=== PATIENT | female | born 1935 | race Caucasian/White ===

== ENCOUNTER 2020-03-11 13:08 | Inpatient (IN) | payer MEDICARE, SELFPAY ==
[2020-03-11] VITALS (21 sets, daily range): BP systolic 88–128; BP diastolic 53–95; PULSE 87–112; RESP 12–24; TEMP 35.9–36.5; O2SAT 91–99; BMI 29.1
--- NOTE | ~2020-03-11 | US_ITS ---
EXAMINATION: US venous doppler [facility] DATE: 03/11/2020 13:58 INDICATION: Bilateral lower limb pain, swelling and erythema TECHNIQUE: Grayscale ultrasound images without and with compression and Doppler ultrasound images of the bilateral lower extremity veins were obtained. COMPARISON: None. FINDINGS: The visualized portions of right common femoral vein, profunda (deep) femoral vein, femoral vein, pop liteal vein, posterior tibial veins, peroneal veins, gastrocnemius vein and greater saphenous vein ou tflow are patent. Subcutaneous edema at the right calf. The visualized portions of left common femoral vein, profunda femoral vein, femoral vein, popliteal v ein, posterior tibial veins, peroneal veins, gastrocnemius vein and greater saphenous vein outflow ar e patent. Subcutaneous edema at the left calf. IMPRESSION: 1. No deep venous thrombosis in either lower limb. Reviewed, dictated and finalized at location A.
--- NOTE | ~2020-03-11 | XR_ITS ---
EXAMINATION: XR chest 2V DATE: 03/11/2020 14:38 INDICATION: Shortness of breath. TECHNIQUE: Frontal and lateral views of the chest were obtained. COMPARISON: CT abdomen and pelvis 08/15/2016 FINDINGS: There are small pleural effusions. There are airspace opacities at the lung bases and in pe rihilar left upper lobe. No pneumothorax. Cardiomegaly is noted. There is a chronic burst fracture of T12. There are changes of posterior fusion procedure in lumbar spine. IMPRESSION: 1. Small pleural effusions. 2. Airspace opacities at the lung bases and in the perihilar left upper lobe, consistent with atelect asis versus pneumonia. 3. Cardiomegaly. Reviewed, dictated and finalized at location B. IMPRESSION: 1. Small pleural effusions. 2. Airspace opacities at the lung bases and in the perihilar left upper lobe, c onsistent with atelectasis versus pneumonia. 3. Cardiomegaly.
--- NOTE | 2020-03-11 13:47 | ED.EXTPRO ---
HPI - Extremity Problem General Chief complaint: Extremity Problem,Nontraumatic Stated complaint: LOWER EXT SWELLING, LOW BP Time Seen by Provider: 03/11/20 13:47 History of Present Illness HPI Narrative: Sent in by PCP for concern about possible CHF. She has had lower expremity swelling for the past 2 weeks. She was started on lasix, which helped initially, but now does not seem to be. Additionally she has noted increasing RAMIREZ, and fatigue. She was supposed to have an outpatient echo, but they have had difficulty scheduling it. No cough, fever, chest pain. 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 Her grandson lives with her. Her daughter lives across the street. 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 She smokes about a pack of cigarettes per day. She denies alcohol and illicit substance abuse. She designates her daughter, Shilpa Miller, as her surrogate decision maker and she wishes to be a do not resuscitate. Smoking packs per day: 1 Smoking cigarettes per day: 20.0 Years smoked: 65 Smoking pack-years: 65.00 Smoking status: Current every day smoker Tobacco type: cigarettes Alcohol intake: never Substance use: never Substance use type: does not use Gender identity (if verbalized by the patient): Female Spiritual care concerns: No Exam Const: General: no acute distress and alert Orientation/consciousness: patient oriented x3 HENMT: Head: normal to inspection Neck: Neck: normal visual inspection Resp: Effort & Inspection: normal respiratory effort Auscultation: crackles bilateral in the lower lung lemon Cardio: Rate: regular rate Rhythm: regular rhythm Skin: General skin exam: normal color Wounds: no wounds Neuro: General: patient oriented x3, no focal motor deficits and CN's II-XI intact bilaterally Speech: normal speech Extrem: General: edema bilateral Course Vital Signs Vital signs: Vital Signs Temperature 36.4 C 03/11/20 13:08 Pulse Rate 92 03/11/20 13:08 Respiratory Rate 16 03/11/20 13:08 Blood Pressure 90/53 L 03/11/20 13:08 Pulse Oximetry 97 03/11/20 13:08 Temperature 36.2 C L 03/16/20 14:00 Pulse Rate 95 03/16/20 14:00 Respiratory Rate 18 03/16/20 14:00 Blood Pressure 82/63 L 03/16/20 15:11 Pulse Oximetry 97 03/16/20 14:00 MDM - Extremity (Nontraumatic) MDM Narrative Medical decision making narrative: She has a very elevated BNP, pleural effusions, cardiomegaly, and increasing edeam. I will admit her for CHF. Medical
--- NOTE | 2020-03-11 13:50 | PC.NURSE ---
Pt. to Ultrasound prior to room arrival.
--- NOTE | 2020-03-11 14:23 | ECG_ITS ---
Measurements Intervals [place] Rate: 103 P: -11 ME: 156 QRS: -40 QRSD: 102 T: 52 QT: 377 QTc: 495 Interpretive Statements SINUS TACHYCARDIA ATRIAL COUPLETS AND ATRIAL PREMATURE COMPLEXES LEFT AXIS DEVIATION VOLTAGE CRITERIA FOR LVH DELAYED PRECORDIAL R/S TRANSITION BORDERLINE ST-T WAVE ABNORMALITY- HIGH LATERAL LEADS ABNORMAL ECG Electronically Signed On 03-11-2020 15:19:30 CDT by Bi Rosen D.O.
[2020-03-11 15:01] LABS: Basophils Percent Auto 0.2 % (0.2-1.2); Eosinophils Percent Auto 0.5 % (0-4.4); Hematocrit 40.3 % (37.0-47.0); Hemoglobin 13.5 g/dL (12.0-15.0); Immature Granulocyte Absolute 0.04 K/mm3 (0.00-0.031); Immature Granulocyte Percent A 0.5 % (0-0.5); Lymphocytes Absolute Auto 1.26 K/mm3 (0.9-3.2); Lymphocytes Percent Auto 14.9 % (18.3-44.2); Mean Corpuscular HGB Conc 33.5 g/dl (32-36); Mean Corpuscular Hemoglobin 31.5 pg (26-34); Mean Corpuscular Volume 94.2 fl (80-100); Mean Platelet Volume 9.8 fl (7.4-10.4); Monocytes Absolute Auto 0.7 K/mm3 (0.1-0.6); Monocytes Percent Auto 8.4 % (2.6-8.5); Neutrophils Absolute Auto 6.4 K/mm3 (1.3-6.7); Neutrophils Percent Auto 75.5 % (45.5-73.1); Platelet Count Result 238 k/mm3 (150-375); Red Blood Count 4.28 M/mm3 (4.2-5.4); Red Cell Distribution Width 13.2 % (11.5-14.5); White Blood Count 8.4 K/mm3 (4.5-10.0)
[2020-03-11 15:10] LABS: INR 1.1; Prothrombin Time 13.5 Seconds (11.1-14.7)
[2020-03-11 15:11] LABS: Partial Thromboplastin Time 28.8 SECONDS (22.3-36.8)
[2020-03-11 15:14] LABS: Anion Gap 7 mmol/L (8-16); Blood Urea Nitrogen 17 mg/dL (7-17); Carbon Dioxide 28 mmol/L (22-30); Chloride 100 mmol/L (98-107); Potassium 3.4 mmol/L (3.4-5.0); Sodium 135 mmol/L (137-145)
[2020-03-11 15:15] LABS: Alanine Aminotransferase 57 U/L (4-35); Albumin Level 3.8 g/dL (3.5-5.1); Alkaline Phosphatase 67 U/L (38-126); Aspartate Amino Transferase 36 U/L (14-36); Bilirubin,Total 0.6 mg/dL (0.2-1.3); Calcium 8.7 mg/dL (8.4-10.2); Estimated Glomerular Filt Rate > 60; Glucose 97 mg/dL (65-105)
[2020-03-11 15:46] LABS: NT Pro B Type Natriuretic Pept 21200 PG/ML (5-100); Troponin I 0.046 ng/mL (0.000-0.034)
[2020-03-11] MEDS: FUROSEMIDE INJ 40 MG/4 ML VIAL IV PUSH (16:18)
--- NOTE | 2020-03-11 18:44 | ADMGEN ---
This patient, Zelda Chin, was admitted to IMU Room 205-02. Patient/family oriented to hospital policies and general routines including ID bracelet, bed and alarms, visiting hours, pain management, procedures, bathroom and other care routines, personal items, smoking policy, room service/diet, and visiting hours. Valuables list has been completed. Information on how to activate the Rapid Response Team has been discussed. Patient/Family are encouraged to report perceived risks to care and to ask questions if they do not understand what they are told or what they should do.
[2020-03-11 19:21] LABS: Troponin I 0.047 ng/mL (0.000-0.034)
--- NOTE | 2020-03-11 19:47 | PC.NURSE ---
Critical Troponin called at 19:21 called Pao ANN, no answer and left message. Reported critical value to night nurse Marycruz EVANS. She said she will relay value to Pao.
[2020-03-11] MEDS: IPRATROPIUM BR 0.02% INH SOLN 0.5 MG/2.5 ML VIAL INHALATION (21:30)
[2020-03-11] MEDS: ALBUTEROL SULFATE NEB 2.5 MG/0.5 ML INH 5 MG INHALATION (21:31)
[2020-03-11 21:36] LABS: Troponin I 0.051 ng/mL (0.000-0.034)
--- NOTE | 2020-03-11 23:50 | PM.IMHP ---
H&P: HPI History of Present Illness Date/Time: 03/11/20 23:50 Chief complaint: Lower leg swelling. Narrative: Zelda Chin is a very pleasant 84-year-old female with GERD, and anxiety who presented to the emergency department earlier of bilateral lower extremity edema. A couple of weeks ago she developed swelling in her feet and ankles, which has continued to get worse despite being started on Lasix by her primary care provider. She was found to have a markedly elevated BNP with evidence of cardiomegaly and small pleural effusions on chest x-ray as well as an elevated troponin level and she is being admitted in this setting. With further questioning, she denies any known history of coronary artery disease, congestive heart failure, or cardiac dysrhythmia. She has not had chest pain, pleuritic pain, or palpitations. She also denies orthopnea, PND, and concerns for sleep apnea. She has not noticed any significant shortness of breath but will occasionally have a cough he, though nothing significant. No fever, chills, sweats, nausea, vomiting, or change in urine output. Review of Systems Review of Systems: Narrative: Twelve systems were reviewed with pertinent positives and negatives as per HPI. No recent travel or sick contacts. She denies exposure to those positive for COVID-19. No dysphagia. She denies nausea, vomiting, and diarrhea. She occasionally has constipation, but has had daily bowel movements for the last week or so. No dysuria hematuria, however she has had some urinary urgency since starting the Lasix. Except as documented, all other systems were reviewed and are negative. 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 Her grandson lives with her. Her daughter lives across the street. 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 She smokes about a pack of cigarettes per day. She denies alcohol and illicit substance abuse. She designates her daughter, Shilpa Miller, as her surrogate decision maker and she wishes to be a do not resuscitate. Smoking packs per day: 1 Smoking cigarettes per day: 20.0 Years smoked: 65 Smoking pack-years: 65.00 Smoking status: Current every day smoker Tobacco type: cigarettes Alcohol intake: never Substance use: never Substance use type: does not use Gender identity (if verbalized by the patient): Female Spiritual care concerns: No Meds Home Medications and Allergies Home Medications Medication Instructions Recorded Confirmed Type acetaminophen 650 mg 650 mg PO ONCE #90 tablet 06/06/19 03/11/20 Rx tablet,extended release esomeprazole magnesium 20 mg 20 mg PO DAILY #90 cap 06/06/19 03/11/20 Rx capsule,delayed release gabapentin 100 mg capsule 100 mg PO BID cap 06/06/19 03/11/20 History buspirone 7.5 mg tablet 7.5 mg PO TID #90 tablet 12/01/19 03/11/20 Rx furosemide 20 mg tablet 20 mg PO QAM tablet 01/25/20 03/11/20 History potassium chloride 10 mEq 10 meq PO DAILY #90 tablet 02/15/20 03/11/20 Rx tablet,extended release trazodone 100 mg tablet 100 mg PO DAILY #135 tablet 03/05/20 03/11/20 Rx Allergies Allergy/AdvReac Type Severity Reac
[2020-03-12] VITALS (22 sets, daily range): BP systolic 95–107; BP diastolic 50–76; PULSE 67–130; RESP 14–22; TEMP 36.2–36.6; O2SAT 93–95
--- NOTE | 2020-03-12 00:57 | ECHO_ITS ---
Patient Info Name: Zelda Chin Age: 84 years : 1935 Gender: Female Ht: 56 in Wt: 130 lbs BSA: 1.55 m2 HR: 96 bpm BP: 107 / 76 mmHg Technical Quality: Good Exam Date: 03/12/2020 8:08 AM Exam Location: [facility] Pulmonary Patient Status: Inpatient Admit Date: 03/11/2020 Staff Ordering Physician: Pao Camilo PA-C Waist Pleater: Kavon Rivero, KORINA, RT Attending Provider: Khadijah Murphy MD Referring Physician: Leslee LOYD; Exam Type: CA echo doppler color flow Study Info Indications I50.9 - Heart failure, unspecified Complete two-dimensional, color flow and Doppler transthoracic echocardiogram is performed. Summary 1. Normal LV size, moderate LVH, borderline LV systolic function, ejection fraction 50-55%; diastolic dysfunction. Mild left atrial enlargement. Dense mitral annular calcification, moderate MR, moderate mitral stenosis, mean gradient 9 mmHg. Mildly calcific aortic valve, mild aortic stenosis, GARY 1.9 cm2. Moderate tricuspid regurgitation, moderate pulmonary hypertension, RVSP estimated at 57 mmHg. Mild pericardial effusion, no echocardiographic evidence of tamponade. Left Ventricle Left ventricular chamber dimension is normal. Left ventricular systolic function is normal, estimated at 50-55%. There is moderately increased left ventricular wall thickness. The left ventricular diastolic function is abnormal. Left Atria Left atrial chamber dimension is mildly enlarged. Aortic Valve There is mild aortic valve stenosis with a peak velocity of 100 cm/s, mean gradient of 2 mmHg, and aortic valve area of 2.1 cm2. There is mild aortic valve calcification. Pulmonic Valve The pulmonic valve is not well visualized. There is trace pulmonic regurgitation. Mitral Valve There is moderate mitral valve stenosis. There is moderate mitral valve regurgitation. There is moderate mitral valve calcification. Tricuspid Valve The tricuspid valve leaflets are normal. There is moderate tricuspid valve regurgitation. Pericardium/Pleural There is small pericardial effusion. Inferior Vena Cava Dilated inferior vena cava with <50% collapse upon inspiration consistent with elevated right atrial pressure, 10 mmHg. Left Ventricular Outflow Tract Name Value Normal LVOT 2D LVOT Diameter 2.0 cm LVOT Doppler LVOT Peak Gradient 1 mmHg LVOT Mean Gradient 1 mmHg LVOT VTI 11 cm LVOT VTI/AV VTI Ratio 0.7 LVOT Stroke Volume 35 ml LVOT CO 5.5 l/min LVOT CI 3.5 l/min/m2 Mitral Valve Name Value Normal MV Doppler MV Decel [place] 956 cm/s2 MV PHT 62 ms MV Area (PHT)
[2020-03-12 01:14] LABS: Add Urine Microscopic? YES; Appearance Urine Clear (Clear); Bacteria Urine Trace /hpf; Bilirubin Urine Negative (Negative); Blood Urine 1+ (Negative); Color Urine Straw (Yellow); Glucose Urine UA Negative (Negative); Ketones Urine Negative (Negative); Leukocyte Esterase Ur Negative LEU/UL (Negative); Mucus Urine Rare /lpf; Nitrate Urine Negative (Negative); Protein Urine Negative (Negative); RBC Urine 0-2 /hpf (0-2); Squamous Epithelial Cell Urine Rare /hpf (Few); Urobilinogen Urine Negative mg/dL (<2.0); WBC Urine 0-3 /hpf
[2020-03-12] MEDS: traZODone HCL 50 MG TABLET 200 MG PO ×2 (01:44→20:21)
[2020-03-12] MEDS: busPIRone HCL 2.5 MG TABLET 7.5 MG PO ×4 (01:44→17:06)
[2020-03-12] MEDS: NICOTINE (*PBKC) 21 MG PATCH 1 PATCH TRANSDERM ×2 (01:45→09:03)
[2020-03-12] MEDS: ALBUTEROL SULFATE NEB 2.5 MG/0.5 ML INH 5 MG INHALATION ×4 (03:13→19:47)
[2020-03-12] MEDS: IPRATROPIUM BR 0.02% INH SOLN 0.5 MG/2.5 ML VIAL INHALATION ×4 (03:13→19:47)
[2020-03-12] MEDS: PANTOPRAZOLE 40 MG TABLET PO (09:02)
[2020-03-12] MEDS: POTASSIUM CHLORIDE 10 MEQ TABLET.ER PO (09:02)
[2020-03-12] MEDS: traZODone HCL 50 MG TABLET PO ×2 (09:03→12:32)
[2020-03-12] MEDS: GABAPENTIN 100 MG CAPSULE PO ×2 (09:03→17:06)
--- NOTE | 2020-03-12 09:22 | PM.CNCAR ---
Assessment and Plan Assessment and plan (1) Congestive heart failure: Code(s): I50.9 - Heart failure, unspecified Status: Acute Assessment and Plan: 84-year-old female with history of LVH with diastolic dysfunction, moderate mitral stenosis, anxiety, tobacco abuse. Patient admitted to the hospital with dyspnea and lower extremity swelling. Her initial EKG showed sinus tachycardia, subsequent EKG showed multifocal atrial tachycardia, on telemetry she has been in multiple atrial tachycardia with heart rate in 110s and 130s. Troponins are minimally elevated and likely non ACS in the setting of CHF. Echocardiogram on the personal evaluation shows borderline LV systolic function, moderate LVH, moderate mitral stenosis, mild aortic stenosis, moderate pulmonary hypertension. Patient's clinical presentation is consistent with acute on chronic diastolic CHF. - Continue diuresis with furosemide with close monitoring of electrolytes and renal function. - Start low-dose metoprolol tartrate 12.5 mg p.o. b.i.d. with holding parameters. May add NATALIO-inhibitor or Arb when patient's blood pressure allows. - Monitor on telemetry for improvement in her heart rate. - Patient has minimal troponin elevation which is likely non ACS. She does have coronary risk factors including age, ongoing tobacco abuse. May consider noninvasive ischemic evaluation at a later date as an outpatient as necessary. - patient and her daughter were advised to follow up as an outpatient. Patient has not been compliant previously for outpatient follow-up. Patient may need further investigation for her LV wall thickening and valvar heart disease including possibility of Infiltrative cardiomyopathy like cardiac amyloidosis as an outpatient. (2) Tobacco abuse: Code(s): Z72.0 - Tobacco use Status: Acute Assessment and Plan: Smoking cessation counseling was done History of Present Illness History of Present Illness Consult date/time: 03/12/20 09:22 Date of consult: 03/12/2020 reason for consult:new onset CHF, elevated troponin Requesting physician:RAPHAEL Camilo Chief complaint: HPI: 84-year-old female with LVH, diastolic dysfunction, anxiety, tobacco abuse. Patient admitted to the hospital on 03/11/2020 with complaints of bilateral lower extremity swelling that started about 2 weeks ago. she also has been experiencing shortness of breath, unable to quantify the distance. Patient states that she gets short of breath limited distance. She has limited mobility, uses walker for ambulation. She denies any chest pain, palpitations, dizziness or syncope. Per patient's daughter, she has found irregular heartbeat on the monitor at home. Review of patient's old medical records indicate that she had an echocardiogram done on 08/15/2016 showed LVEF 75-80%, moderate LVH, grade 1 diastolic dysfunction, severe mitral annular calcification, [id number] mitral stenosis, moderate pericardial effusion. Patient and her daughter reports that they have not had regular cardiology follow-up over the years. She previously used to see in the clinic, however, has not seen her about about 3 years as per patient's daughter EKG on my personal evaluation showed sinus tachycardia, heart rate 103 beats per minute, left axis deviation, PAC, LVH. subsequent EKG performed today showed multifocal atrial tachycardia. On telemetry, patient has been in sinus rhythm with episodes of multifocal atrial tachycardia with heart rate in 110s to 130s. Troponins are minimally elevated and essentially flat. [place] [id number]. chest x-ray showed Small pleural effusions, airspace opacities at the lung bases and in the perihilar left upper lobe, consistent with atelectasis versus pneumonia; cardiomegaly. No DVT on lower extremity Doppler. Reason For Visit: Lower leg swelling. Review of Systems Constitutional: Constitutional: [place]
--- NOTE | 2020-03-12 09:55 | ECG_ITS ---
Measurements Intervals [place] Rate: 111 P: NH: 0 QRS: -41 QRSD: 97 T: 73 QT: 360 QTc: 490 Interpretive Statements SINUS OR ECTOPIC ATRIAL TACHYCARDIA ATRIAL COUPLETS AND FREQUENT ATRIAL PREMATURE COMPLEXES VENTRICULAR PREMATURE COMPLEX LEFT AXIS DEVIATION VOLTAGE CRITERIA FOR LVH POOR R WAVE PROGRESSION, ANTERIOR LEADS NONSPECIFIC ST & T-WAVE ABNORMALITY- HIGH LATERAL LEADS BASELINE ARTIFACT- V5 ABNORMAL ECG Electronically Signed On 03-12-2020 13:34:34 CDT by Bi Rosen D.O.
[2020-03-12] MEDS: FUROSEMIDE INJ 40 MG/4 ML VIAL 20 MG IV PUSH ×2 (10:18→20:20)
--- NOTE | 2020-03-12 12:02 | PM.OP ---
Procedure Note - Brief Procedure Note - Brief Date of procedure: 03/12/20 Pre-op diagnosis: Lower leg swelling. Surgeon: Jeffry Hummel MD
[2020-03-12] MEDS: POTASSIUM CHLORIDE 10 MEQ TABLET 40 MEQ PO (15:22)
[2020-03-12] MEDS: TOLNAFTATE 1% POWDER 45 GM BTL 1 APPLIC TOPICAL ×2 (15:23→20:21)
--- NOTE | 2020-03-12 15:40 | PM.IMPN ---
Progress Note: A&P Assessment and Plan (1) Congestive heart failure: Code(s): I50.9 - Heart failure, unspecified Status: Acute Assessment and Plan: Cautious diuresis with close monitoring of blood pressures, which have been running a bit soft. Echocardiogram EF 40-45% (2) Elevated troponin: Code(s): R79.89 - Other specified abnormal findings of blood chemistry Status: Acute Assessment and Plan: Minimally elevated and flat, likely secondary to CHF. As above, echocardiogram has been ordered. (3) Generalized anxiety disorder: Code(s): F41.1 - Generalized anxiety disorder Status: Acute Assessment and Plan: Continue buspirone. (4) Gastroesophageal reflux: Code(s): K21.9 - Gastro-esophageal reflux disease without esophagitis Status: Acute Assessment and Plan: Continue esomeprazole. (5) Tobacco dependence: Code(s): F17.200 - Nicotine dependence, unspecified, uncomplicated Status: Acute Assessment and Plan: Smoking cessation is encouraged. Nicotine patch available if needed. Subjective Date/time seen: 03/12/20 15:40 Interval history: Date of visit 03/12. 84-year-old white female admitted with increasing shortness breath weakness. Has diuresed some and feels better this a.m.. No chest pain and no real palpitations Exam Narrative: Exam Narrative: blood pressure 100/60 pulse is 82 and regular afebrile saturating 95% on room air lungs faint bibasilar crackles CV regular rate rhythm abdomen soft nontender no mas ses extremities without edema neuro alert cooperative no focal deficits Objective Data Vital Signs Vital Signs: Vital Signs - 24 hr 03/11/20 16:10 03/11/20 16:15 03/11/20 16:16 Temperature Pulse Rate 98 102 H 100 Respiratory Rate 20 22 H 24 H Blood Pressure 128/95 H Pulse Oximetry 91 95 03/11/20 16:17 03/11/20 16:30 03/11/20 16:31 Temperature Pulse Rate 88 96 100 Respiratory Rate 14 20 20 Blood Pressure 100/84 Pulse Oximetry 92 91 03/11/20 16:45 03/11/20 17:30 03/11/20 18:20 Temperature 35.9 C L Pulse Rate 88 98 87 Respiratory Rate 20 12 18 Blood Pressure 122/70 122/73 Pulse Oximetry 97 99 94 03/11/20 19:55 03/11/20 20:00 03/11/20 21:32 Temperature 36.5 C Pulse Rate 112 H 112 H Respiratory Rate 20 20 Blood Pressure 89/74 L 88/63 L Pulse Oximetry 92 92 03/11/20 21:35 03/11/20 21:44 03/11/20 22:00 Temperature Pulse Rate 90 91 100 Respiratory Rate 20 20 Blood Pressure Pulse Oximetry 03/11/20 23:30 03/12/20 00:00 03/12/20 02:00 Temperature 36.5 C Pulse Rate 103 H 107 H 97 Respiratory Rate 20 20 Blood Pressure 90/69 L Pulse Oximetry 93 93 03/12/20 03:15 03/12/20 03:20 03/12/20 04:00 Temperature 36.2 C L Pulse Rate 104 H 99 96 Respiratory Rate 20 20 16 Blood Pressure 107/76 Pulse Oximetry 93 03/12/20 06:00 03/12/20 07:06 03/12/20 08:00 Temperature 36.5 C Pulse Rate 101 H 117 H 120 H Respiratory Rate 20 Blood Pressure 106/75 Pulse Oximetry 94 03/12/20 09:07 03/12/20 09:12 03/12/20 10:00 Temperature Pulse Rate 94 95 130 H Respiratory Rate 18 18 Blood Pressure Pulse Oximetry 03/12/20 12:00 03/12/20 13:46 03/12/20 13:51 Temperature 36.2 C L Pulse Rate 110 H 96 95 Respiratory Rate 22 H 18 18 Blood Pressure 97/61 L Pulse Oximetry 95 03/12/20 14:00 Temperature Pulse Rate 94 Respiratory Rate Blood Pressure Pulse Oximetry Intake/Output Intake/Output: Intake & Output 03/09/20 03/10/20 03/11/20 03/12/20 23:59 23:59 23:59 23:59 Intake Total 480 Output Total 1600 Balance -1120
[2020-03-12] MEDS: METOPROLOL TARTRATE 12.5 MG TABLET PO (20:20)
[2020-03-13] VITALS (26 sets, daily range): BP systolic 71–127; BP diastolic 51–87; PULSE 71–111; RESP 16–20; TEMP 35.7–36.6; O2SAT 90–100
[2020-03-13] MEDS: IPRATROPIUM BR 0.02% INH SOLN 0.5 MG/2.5 ML VIAL INHALATION ×4 (02:10→19:47)
[2020-03-13] MEDS: ALBUTEROL SULFATE NEB 2.5 MG/0.5 ML INH 5 MG INHALATION ×4 (02:10→19:47)
[2020-03-13 05:44] LABS: Anion Gap 5 mmol/L (8-16); Blood Urea Nitrogen 19 mg/dL (7-17); Calcium 8.6 mg/dL (8.4-10.2); Carbon Dioxide 30 mmol/L (22-30); Chloride 100 mmol/L (98-107); Estimated Glomerular Filt Rate > 60; Glucose 105 mg/dL (65-105); Potassium 3.9 mmol/L (3.4-5.0); Sodium 135 mmol/L (137-145)
--- NOTE | 2020-03-13 08:38 | P.CDI_ITS ---
CDI Query Clarification Request - CHF documented - Echo with EF 50-55% and diastolic dysfunction - Coders cannot code type of CHF from documentation of echo results Please further specify type and acuity of CHF: * Systolic *Acute * Diastolic *Chronic * Both systolic and diastolic *Acute on chronic * Unable to determine *Unable to determine <Zelda Patrick RN - Last Filed: 03/13/20 08:49> Clarified Diagnosis (1) Mitral stenosis with insufficiency: Code(s): I05.2 - Rheumatic mitral stenosis with insufficiency <Zelda Patrick RN - Last Filed: 03/13/20 08:49> Status: Acute <Zelda Patrick RN - Last Filed: 03/13/20 08:49> (2) Diastolic CHF, acute on chronic: Code(s): I50.33 - Acute on chronic diastolic (congestive) heart failure <Zelda Patrick RN - Last Filed: 03/13/20 08:49> Status: Acute <Zelda Patrick RN - Last Filed: 03/13/20 08:49>
[2020-03-13] MEDS: traZODone HCL 50 MG TABLET PO ×2 (08:43→12:47)
[2020-03-13] MEDS: POTASSIUM CHLORIDE 10 MEQ TABLET.ER PO (08:43)
[2020-03-13] MEDS: PANTOPRAZOLE 40 MG TABLET PO (08:43)
[2020-03-13] MEDS: GABAPENTIN 100 MG CAPSULE PO ×2 (08:43→17:23)
[2020-03-13] MEDS: METOPROLOL TARTRATE 12.5 MG TABLET PO ×2 (08:43→20:15)
[2020-03-13] MEDS: NICOTINE (*PBKC) 21 MG PATCH 1 PATCH TRANSDERM (08:43)
[2020-03-13] MEDS: busPIRone HCL 2.5 MG TABLET 7.5 MG PO ×3 (08:43→17:23)
[2020-03-13] MEDS: TOLNAFTATE 1% POWDER 45 GM BTL 1 APPLIC TOPICAL ×2 (08:44→20:16)
--- NOTE | 2020-03-13 12:05 | PM.PNCARD ---
Progress Note: A&P Assessment and Plan (1) Acute diastolic CHF (congestive heart failure): Code(s): I50.31 - Acute diastolic (congestive) heart failure Status: Acute Assessment and Plan: Excellent diuresis. Still somewhat volume overloaded. Running a lower blood pressure today than usual, will reduce Lasix to 20 mg daily. (2) Multifocal atrial tachycardia: Code(s): I47.1 - Supraventricular tachycardia Status: Acute Assessment and Plan: On low-dose metoprolol, unable to titrate dose because low blood pressure. Only one dose given so far. 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 However her mitral valve gradient was 9 mm Hg, a bit elevated, so we will need to re-evaluate the mitral stenosis in the future. Probably repeat an echo in 6 months. (4) Hypotension: Code(s): I95.9 - Hypotension, unspecified Status: Acute Assessment and Plan: low blood pressures asymptomatic but limits therapy. Subjective Date/time seen: 03/13/20 12:05 84-year-old female with history of LVH with diastolic dysfunction, moderate mitral stenosis, anxiety, tobacco abuse. Patient admitted to the hospital with dyspnea and lower extremity swelling. Her initial EKG showed sinus tachycardia, subsequent EKG showed multifocal atrial tachycardia, on telemetry she has been in multiple atrial tachycardia with heart rate in 110s and 130s. Troponins are minimally elevated and likely non ACS in the setting of CHF. Echocardiogram shows borderline LV systolic function, moderate LVH, moderate mitral stenosis, mild aortic stenosis, moderate pulmonary hypertension. Patient's clinical presentation is consistent with acute on chronic diastolic CHF. Patient is being diuresed and started on metoprolol, will need outpatient follow-up. Date of service: 03/13/2020 Feeling better, up in a chair comfortable, still breathless at times. edema improved. Off oxygen. Blood pressure running 71-105 mmHg. Diuresed over 2 L yesterday. Telemetry: NSR and sinus tach rate 80-110, multifocal atrial tachycardia, no atrial fibrillation. Review of Systems Constitutional: Constitutional: Reports weakness ENT: Denies epistaxis Cardiovascular: Cardiovascular: Denies chest pain, Reports pedal edema, Reports leg edema and Denies lightheadedness Respiratory: Respiratory: Reports chest congestion and Reports dyspnea on exertion Gastrointestinal: Gastrointestinal: Denies abdominal pain Genitourinary: Genitourinary: Reports nocturia Musculoskeletal: Musculoskeletal: Reports no additional musculoskeletal complaints Integumentary/Breasts: Skin/Breast: Reports rash and Reports wounds ( Wound on right lower extremity has been losing) Neurologic: Reports system reviewed and no additional complaints, except as documented Psychiatric: Psychiatric: Reports no additional psychiatric complaints Exam Narrative: Exam Narrative: pleasant older lady sitting up in chair, off oxygen, daughter at the bedside. Const: General: comfortable and no acute distress HENMT: Mouth: Yes moist mucous membranes Eyes: EOM: EOMs intact bilaterally Neck: Neck: No no JVD ( JVD noted) Resp: Auscultation: diminished lung sounds ( decreased breath sounds in the bases) Cardio: Rate: tachycardic Rhythm: abnormal rhythm ( occasionally irregular) Skin: Wounds: wounds noted (discoloration of LRE w/ wound, dressed) Neuro: Cognition (Neuro): abnormal cognition (mild memory loss?) Speech: normal speech Motor exam (neuro): Normal motor muscle tone present throughout Extrem: General: edema and pedal edema Other: Mild pretibial and ankle edema Psych: Me
--- NOTE | 2020-03-13 17:27 | PM.IMPN ---
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 Plan will be to control heart rate and blood pressure and diuresis as possible (3) Multifocal atrial tachycardia: Code(s): I47.1 - Supraventricular tachycardia Status: Acute Assessment and Plan: low-dose beta kaitlynn added per Cardiology and rate is better controlled. will probably not tolerate titration up with low blood pressure Subjective Date/time seen: 03/13/20 17:27 Interval history: Date of visit 03/13. 84-year-old white female admitted with increasing shortness breath weakness. Has diuresed some and feels better this a.m.. No chest pain and no real palpitations Exam Narrative: Exam Narrative: blood pressure 88/66 pulse is 96 and regular afebrile saturating 95% on room air lungs faint bibasilar crackles L>R CV regular rate rhythm abdomen soft nontender extremities without edema neuro alert cooperative no focal deficits Objective Data Vital Signs Vital Signs: Vital Signs - 24 hr 03/12/20 18:00 03/12/20 19:47 03/12/20 19:55 Temperature Pulse Rate 115 H 90 88 Respiratory Rate 18 18 Blood Pressure Pulse Oximetry 03/12/20 20:00 03/12/20 20:20 03/12/20 22:00 Temperature 36.6 C Pulse Rate 115 H 103 H 83 Respiratory Rate 20 Blood Pressure 95/50 L Pulse Oximetry 93 03/13/20 00:00 03/13/20 02:00 03/13/20 02:11 Temperature 36.4 C Pulse Rate 85 83 86 Respiratory Rate 20 20 Blood Pressure 105/71 Pulse Oximetry 93 03/13/20 02:19 03/13/20 04:00 03/13/20 06:00 Temperature 36.6 C Pulse Rate 88 95 97 Respiratory Rate 18 20 Blood Pressure 94/76 L Pulse Oximetry 94 03/13/20 07:57 03/13/20 08:00 03/13/20 08:43 Temperature 36.3 C L Pulse Rate 88 99 105 H Respiratory Rate 20 Blood Pressure 85/66 L Pulse Oximetry 100 03/13/20 09:10 03/13/20 09:20 03/13/20 10:00 Temperature Pulse Rate 88 87 102 H Respiratory Rate 20 20 Blood Pressure Pulse Oximetry 03/13/20 11:37 03/13/20 12:00 03/13/20 12:37 Temperature 36.6 C Pulse Rate 89 102 H Respiratory Rate 18 Blood Pressure 71/56 L 93/63 L Pulse Oximetry 99 03/13/20 14:00 03/13/20 14:40 03/13/20 14:50 Temperature Pulse Rate 105 H 85 86 Respiratory Rate 20 20 Blood Pressure Pulse Oximetry 03/13/20 16:00 Temperature 36.3 C L Pulse Rate 100 Respiratory Rate 18 Blood Pressure 83/51 L Pulse Oximetry 90 Intake/Output Intake/Output: Intake & Output 03/10/20 03/11/20 03/12/20 03/13/20 23:59 23:59 23:59 23:59 Intake Total 480 630 Output Total 2900 350 Balance -2420 280 Meds/Results Medications: Active Medications Generic Name Dose Route Start Last Admin Trade Name Freq PRN Reason Stop Dose Admin Acetaminophen 650 mg 03/12/20 01:00 Tylenol Tablet PO ONCE JACQUIE Albuterol 5 mg 03/11/20 20:00 03/13/20 14:40 Albuterol Sulf Neb 2.5mg/0.5ml INHALATION 5 mg Q6HRT JACQUIE Administration Buspirone HCl 7.5 mg 03/12/20 01:10 03/13/20 12:47 Buspar PO 7.5 mg TID JACQUIE Administration Furosemide 20 mg 03/14/20 09:00 Lasix Inj IV PUSH DAILY JACQUIE Gabapentin 100 mg 03/12/20 09:00 03/13/20 08:43 Neurontin PO 100 mg BID JACQUIE Administration Ipratropium [place] 0.5 mg 03/11/20 20:00 03/13/20 14:50 Atrovent Neb INHALATION 0.5 mg Q6HRT JACQUIE Administration Metoprolol Tartrate 12.
[2020-03-13] MEDS: traZODone HCL 50 MG TABLET 200 MG PO (20:16)
[2020-03-14] VITALS (25 sets, daily range): BP systolic 99–141; BP diastolic 61–96; PULSE 82–117; RESP 16–24; TEMP 36–36.4; O2SAT 94–99
[2020-03-14] MEDS: IPRATROPIUM BR 0.02% INH SOLN 0.5 MG/2.5 ML VIAL INHALATION ×4 (02:06→20:07)
[2020-03-14] MEDS: ALBUTEROL SULFATE NEB 2.5 MG/0.5 ML INH 5 MG INHALATION ×4 (02:06→20:07)
[2020-03-14 08:14] LABS: Anion Gap 7 mmol/L (8-16); Blood Urea Nitrogen 19 mg/dL (7-17); Carbon Dioxide 27 mmol/L (22-30); Chloride 101 mmol/L (98-107); Estimated Glomerular Filt Rate > 60; Glucose 139 mg/dL (65-105); Potassium 4.3 mmol/L (3.4-5.0); Sodium 135 mmol/L (137-145)
--- NOTE | 2020-03-14 08:41 | PM.PNCARD ---
Progress Note: A&P Assessment and Plan (1) Acute diastolic CHF (congestive heart failure): Code(s): I50.31 - Acute diastolic (congestive) heart failure Status: Acute Assessment and Plan: Excellent diuresis. Still somewhat volume overloaded. Running a lower blood pressure today than usual, will reduce Lasix to 20 mg daily. (2) Multifocal atrial tachycardia: Code(s): I47.1 - Supraventricular tachycardia Status: Acute Assessment and Plan: On low-dose metoprolol, unable to titrate dose because low blood pressure. Only one dose given so far. 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 However her mitral valve gradient was 9 mm Hg, a bit elevated, so we will need to re-evaluate the mitral stenosis in the future. Probably repeat an echo in 6 months. (4) Hypotension: Code(s): I95.9 - Hypotension, unspecified Status: Acute Assessment and Plan: low blood pressures asymptomatic but limits therapy. Subjective Date/time seen: date of service 03/14/20 08:41 Interval history: Date of visit 03/13. 84-year-old white female admitted with increasing shortness breath weakness. Has diuresed some and feels better this a.m.. No chest pain and no real palpitations 03/14/2020- Review of Systems Constitutional: Constitutional: Denies chills, Denies fatigue, Denies fever(s), Denies headache(s) and Reports weakness Eyes: Eyes: Reports as per HPI, Denies change in vision, Denies loss of vision and Denies eye pain ENT: Reports as per HPI, Reports Normal hearing present, Denies headache(s), Reports lip swelling, Denies epistaxis and Denies sore throat Cardiovascular: Cardiovascular: Reports as per HPI, Denies chest pain, Denies syncope, Reports pedal edema, Reports irregular heart rhythm, Reports leg edema, Denies lightheadedness, Reports dyspnea and Reports dyspnea on exertion Respiratory: Respiratory: Reports as per HPI, Reports chest congestion, Denies cough, Reports dyspnea, Reports dyspnea on exertion and Denies wheezing Gastrointestinal: Gastrointestinal: Reports as per HPI, Denies abdominal pain, Denies melena, Denies nausea and Denies vomiting Genitourinary: Genitourinary: Reports as per HPI and Reports nocturia Musculoskeletal: Musculoskeletal: Reports no additional musculoskeletal complaints, Reports as per HPI, Denies myalgias, Denies muscle cramps and Reports muscle weakness Integumentary/Breasts: Skin/Breast: Reports as per HPI, Denies pruritus, Reports rash and Reports wounds ( Wound on right lower extremity has been losing) Neurologic: Reports system reviewed and no additional complaints, except as documented, Reports as per HPI, Reports Normal hearing present, Denies behavioral changes, Denies syncope, Denies headache(s), Denies loss of vision and Reports weakness Psychiatric: Psychiatric: Reports no additional psychiatric complaints, Reports as per HPI, Denies anxiety, Denies behavioral changes and Denies depression Endocrine: Endocrine: Reports as per HPI, Denies fatigue, Denies polydipsia and Denies polyuria Hematologic/Lymphatic: Hematologic/Lymphatic: Reports as per HPI, Denies easy bleeding and Denies easy bruising Allergic/Immunologic: Allergic/Immunologic: Reports as per HPI, Reports lip swelling and Denies wheezing Exam Narrative: Exam Narrative: pleasant older lady sitting up in chair, off oxygen, daughter at the bedside. Const: General: comfortable, no acute distress, alert and awake HENMT: Head: normocephalic and atraumatic Ears: external ears normal and other ( decreased hearing) General nose exam: Normal external nose present and no epistaxis Face and sinus:
[2020-03-14] MEDS: FUROSEMIDE INJ 40 MG/4 ML VIAL 20 MG IV PUSH ×2 (09:36→20:45)
[2020-03-14] MEDS: METOPROLOL TARTRATE 25 MG TABLET PO ×2 (09:36→20:46)
[2020-03-14] MEDS: NICOTINE (*PBKC) 21 MG PATCH 1 PATCH TRANSDERM (09:36)
[2020-03-14] MEDS: POTASSIUM CHLORIDE 10 MEQ TABLET.ER PO (09:37)
[2020-03-14] MEDS: traZODone HCL 50 MG TABLET PO ×2 (09:37→12:08)
[2020-03-14] MEDS: GABAPENTIN 100 MG CAPSULE PO ×2 (09:37→17:54)
[2020-03-14] MEDS: PANTOPRAZOLE 40 MG TABLET PO (09:37)
[2020-03-14] MEDS: busPIRone HCL 2.5 MG TABLET 7.5 MG PO ×2 (09:37→12:08)
[2020-03-14] MEDS: TOLNAFTATE 1% POWDER 45 GM BTL 1 APPLIC TOPICAL ×2 (09:38→20:47)
--- NOTE | 2020-03-14 16:20 | PM.PNCARD ---
Progress Note: A&P Assessment and Plan (1) Acute diastolic CHF (congestive heart failure): Code(s): I50.31 - Acute diastolic (congestive) heart failure Status: Acute Assessment and Plan: Excellent diuresis initially; Lasix reduced to 20 mg qd 03/13/2020. Still somewhat volume overloaded. Will increase back to BID since BP better. (2) Multifocal atrial tachycardia: Code(s): I47.1 - Supraventricular tachycardia Status: Acute Assessment and Plan: No definite a fib; looks like MAT. 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 However her mitral valve gradient was 9 mm Hg, a bit elevated, so we will need to re-evaluate the mitral stenosis in the future. Probably repeat an echo in 6 months. (4) Hypotension: Code(s): I95.9 - Hypotension, unspecified Status: Acute Assessment and Plan: Low blood pressures asymptomatic but limits therapy. Better today since Lasix reduced to once daily. (5) Generalized anxiety disorder: Code(s): F41.1 - Generalized anxiety disorder Status: Acute Assessment and Plan: Very anxious, contributing to sx. Daughter says, She likes her drugs. She needs to watch that pt doesn't take too much. Subjective Date/time seen: 03/14/20 16:20 84-year-old female with history of LVH with diastolic dysfunction, moderate mitral stenosis, anxiety, tobacco abuse. Patient admitted to the hospital with dyspnea and lower extremity swelling. Her initial EKG showed sinus tachycardia, subsequent EKG showed multifocal atrial tachycardia, on telemetry she has been in multiple atrial tachycardia with heart rate in 110s and 130s. Troponins are minimally elevated and likely non ACS in the setting of CHF. Echocardiogram: borderline LV systolic function, moderate LVH, moderate mitral stenosis, mild aortic stenosis, moderate pulmonary hypertension. Patient's clinical presentation is consistent with acute on chronic diastolic CHF. Patient is being diuresed and started on metoprolol, will need outpatient follow-up. 03/13/2020 Feeling better, up in a chair comfortable, still breathless at times. edema improved. Off oxygen. Blood pressure running 71-105 mmHg. Diuresed over 2 L yesterday. Lasix decreased to once daily 2nd low BP. Telemetry: NSR and sinus tach rate 80-110, multifocal atrial tachycardia, no atrial fibrillation. Date of service 03/14/2020: Please help me! Pt had trouble breathing/panic attack at 2 a.m. and around noon, daughter upset that these may not be her usual anxiety attacks but may be from CHF. No CP, stomach problems, Tele: NSR/sinus tach, freq APCs and some MAT. Sometimes hard to tell if MAT or AFib as there can be a lot of artifact on the baseline, but no definite a fib. Review of Systems Constitutional: Constitutional: Reports weakness ENT: Denies epistaxis Cardiovascular: Cardiovascular: Denies chest pain, Reports pedal edema, Reports leg edema, Denies lightheadedness and Reports dyspnea on exertion Respiratory: Respiratory: Reports chest congestion, Reports dyspnea and Reports dyspnea on exertion Gastrointestinal: Gastrointestinal: Denies abdominal pain Genitourinary: Genitourinary: Reports nocturia Musculoskeletal: Musculoskeletal: Reports no additional musculoskeletal complaints Integumentary/Breasts: Skin/Breast: Reports rash and Reports wounds ( Wound on right lower extremity has been losing) Neurologic: Reports system reviewed and no additional complaints, except as documented and Reports weakness Psychiatric: Psychiat
--- NOTE | 2020-03-14 17:46 | PM.IMPN ---
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 Plan will be to control heart rate and blood pressure and diuresis as possible (3) Multifocal atrial tachycardia: Code(s): I47.1 - Supraventricular tachycardia Status: Acute Assessment and Plan: low-dose beta kaitlynn added per Cardiology and rate is better controlled. doubt will be able to increase above 25 Q 12 with her low blood pressure (4) Generalized anxiety disorder: Code(s): F41.1 - Generalized anxiety disorder Status: Acute Assessment and Plan: definitely contributing to her symptomatology. Continue the trazodone and buspirone (5) DVT prophylaxis: Code(s): Z29.9 - Encounter for prophylactic measures, unspecified Status: Acute Assessment and Plan: Lovenox Subjective Date/time seen: 03/14/20 17:46 Interval history: date of visit 03/14. 84-year-old white female admitted with increasing shortness breath and generalized weakness. Found to have diastolic heart failure and MAT. diuresing and low-dose beta-kaitlynn and she is feeling better although she complains of being very anxious and short of breath last night Exam Narrative: Exam Narrative: blood pressure 110/86 pulse is 86 and regular afebrile saturating 94% on room air lungs clear today CV regular rate rhythm with frequent ectopics abdomen soft nontender extremities without edema neuro alert cooperative no focal deficits Objective Data Vital Signs Vital Signs: Vital Signs - 24 hr 03/13/20 18:00 03/13/20 19:49 03/13/20 19:55 Temperature 36.3 C L Pulse Rate 109 H 101 H 108 H Respiratory Rate 20 18 Blood Pressure 114/77 Pulse Oximetry 96 03/13/20 20:00 03/13/20 20:15 03/13/20 22:00 Temperature Pulse Rate 87 111 H 91 Respiratory Rate Blood Pressure Pulse Oximetry 03/13/20 23:51 03/14/20 00:00 03/14/20 02:00 Temperature 35.7 C L Pulse Rate 71 97 91 Respiratory Rate 16 Blood Pressure 127/87 Pulse Oximetry 100 03/14/20 02:06 03/14/20 02:11 03/14/20 04:00 Temperature Pulse Rate 85 89 94 Respiratory Rate 24 H 22 H Blood Pressure Pulse Oximetry 03/14/20 04:42 03/14/20 06:00 03/14/20 08:00 Temperature 36.2 C L 36.1 C L Pulse Rate 104 H 113 H 108 H Respiratory Rate 16 18 Blood Pressure 141/96 H 126/86 Pulse Oximetry 96 94 03/14/20 08:20 03/14/20 08:30 03/14/20 09:36 Temperature Pulse Rate 117 H 113 H 106 H Respiratory Rate 20 20 Blood Pressure Pulse Oximetry 03/14/20 10:00 03/14/20 11:41 03/14/20 12:00 Temperature 36.4 C L Pulse Rate 114 H 89 82 Respiratory Rate 20 Blood Pressure 99/61 L Pulse Oximetry 95 03/14/20 13:30 03/14/20 13:40 03/14/20 14:00 Temperature Pulse Rate 108 H 110 H 92 Respiratory Rate 20 20 Blood Pressure Pulse Oximetry 03/14/20 16:00 Temperature 36.3 C L Pulse Rate 87 Respiratory Rate 22 H Blood Pressure 108/88 Pulse Oximetry 99 Intake/Output Intake/Output: Intake & Output 03/11/20 03/12/20 03/13/20 03/14/20 23:59 23:59 23:59 23:59 Intake Total 480 870 640 Output Total 2900 500 750 Balance -2420 370 -110 Meds/Results Medications: Active Medications Generic Name Dose Route Start Last Admin Trade Name Freq PRN Reason Stop Dose Admin Acetaminophen 650 mg 03/12/20 01:00 Tylenol Tablet PO ONCE JACQUIE Albuterol
[2020-03-14] MEDS: busPIRone HCL 2.5 MG TABLET PO (17:54)
[2020-03-14] MEDS: busPIRone HCL 5 MG TABLET PO (17:55)
[2020-03-14] MEDS: ENOXAPARIN 40 MG/0.4 ML SYRINGE SUB-Q (20:46)
[2020-03-14] MEDS: traZODone HCL 50 MG TABLET 200 MG PO (20:47)
[2020-03-15] VITALS (23 sets, daily range): BP systolic 91–111; BP diastolic 62–82; PULSE 70–106; RESP 16–28; TEMP 36.2–36.8; O2SAT 92–100
[2020-03-15] MEDS: IPRATROPIUM BR 0.02% INH SOLN 0.5 MG/2.5 ML VIAL INHALATION ×4 (02:45→21:18)
[2020-03-15] MEDS: ALBUTEROL SULFATE NEB 2.5 MG/0.5 ML INH 5 MG INHALATION ×4 (02:45→21:18)
[2020-03-15 05:22] LABS: Albumin Level 3.8 g/dL (3.5-5.1); Anion Gap 6 mmol/L (8-16); Blood Urea Nitrogen 21 mg/dL (7-17); Calcium 8.9 mg/dL (8.4-10.2); Carbon Dioxide 31 mmol/L (22-30); Chloride 98 mmol/L (98-107); Estimated Glomerular Filt Rate 60; Glucose 128 mg/dL (65-105); Phosphorus 3.8 mg/dL (2.5-4.5); Potassium 4.2 mmol/L (3.4-5.0); Sodium 135 mmol/L (137-145)
[2020-03-15] MEDS: busPIRone HCL 2.5 MG TABLET PO ×3 (08:51→16:56)
[2020-03-15] MEDS: POTASSIUM CHLORIDE 10 MEQ TABLET.ER PO (08:51)
[2020-03-15] MEDS: METOPROLOL TARTRATE 25 MG TABLET PO ×2 (08:51→22:42)
[2020-03-15] MEDS: PANTOPRAZOLE 40 MG TABLET PO (08:51)
[2020-03-15] MEDS: NICOTINE (*PBKC) 21 MG PATCH 1 PATCH TRANSDERM (08:52)
[2020-03-15] MEDS: FUROSEMIDE INJ 40 MG/4 ML VIAL 20 MG IV PUSH (08:52)
[2020-03-15] MEDS: traZODone HCL 50 MG TABLET PO ×2 (08:52→12:20)
[2020-03-15] MEDS: GABAPENTIN 100 MG CAPSULE PO ×2 (08:52→16:56)
[2020-03-15] MEDS: busPIRone HCL 5 MG TABLET PO ×3 (08:52→16:56)
[2020-03-15] MEDS: TOLNAFTATE 1% POWDER 45 GM BTL 1 APPLIC TOPICAL ×2 (08:53→22:44)
--- NOTE | 2020-03-15 14:37 | PM.PNCARD ---
Progress Note: A&P Additional Plan 84-year-old lady with: Evidence of diastolic congestive heart failure as well as atrial arrhythmias probably am 80 no obvious atrial fibrillation. Currently in a stable sinus rhythm with heart rate in the 80s. She appears to be essentially euvolemic therefore I am going to transition her to oral furosemide at this time. Anticipate discharge in the next 24-48 hours Rajiv Bedoya MD [facility] Subjective Date/time seen: 03/15/20 14:37 Interval history: date of visit 03/14. 84-year-old white female admitted with increasing shortness breath and generalized weakness. Found to have diastolic heart failure and MAT. patient is sleeping flat in bed upon entering the room upon awakening denies significant dyspnea at this time. Is in sinus rhythm heart rate in the 80s no significant arrhythmias today. Exam Const: General: comfortable and no acute distress Other: Elderly lady laying flat in bed in no respiratory distress at all sleeping. HENMT: Mouth: Yes dry mucous membranes Eyes: Sclera: sclerae normal Pupils: Equal, round and reactive pupils present Neck: Neck: supple and no JVD Resp: Effort & Inspection: normal respiratory effort Other: Breath sounds essentially clear Cardio: Rate: regular rate Rhythm: regular rhythm GI: Auscultation: normal bowel sounds Skin: General skin exam: normal color Neuro: Cognition (Neuro): normal cognition Extrem: General: normal to inspection Objective Data Vital Signs Vital Signs: Vital Signs - 24 hr 03/14/20 16:00 03/14/20 18:00 03/14/20 19:50 Temperature 36.3 C L 36.0 C L Pulse Rate 87 100 98 Respiratory Rate 22 H 16 Blood Pressure 108/88 109/78 Pulse Oximetry 99 95 03/14/20 20:00 03/14/20 20:10 03/14/20 20:20 Temperature Pulse Rate 95 88 96 Respiratory Rate 18 18 Blood Pressure Pulse Oximetry 03/14/20 20:46 03/14/20 22:00 03/15/20 00:00 Temperature 36.8 C Pulse Rate 99 92 91 Respiratory Rate 16 Blood Pressure 106/62 Pulse Oximetry 100 03/15/20 02:00 03/15/20 02:45 03/15/20 02:54 Temperature Pulse Rate 84 75 83 Respiratory Rate 18 18 Blood Pressure Pulse Oximetry 03/15/20 04:00 03/15/20 06:00 03/15/20 08:00 Temperature 36.2 C L Pulse Rate 92 97 101 H Respiratory Rate 22 H Blood Pressure 93/66 L Pulse Oximetry 98 03/15/20 08:50 03/15/20 08:51 03/15/20 08:57 Temperature 36.8 C Pulse Rate 106 H 106 H 96 Respiratory Rate 24 H 18 Blood Pressure 111/82 Pulse Oximetry 95 03/15/20 09:07 03/15/20 10:00 03/15/20 12:00 Temperature 36.3 C L Pulse Rate 97 98 84 Respiratory Rate 18 28 H Blood Pressure 91/77 L Pulse Oximetry 95 03/15/20 14:00 Temperature Pulse Rate 90 Respiratory Rate Blood Pressure Pulse Oximetry Intake/Output Intake/Output: Intake & Output 03/12/20 03/13/20 03/14/20 03/15/20 23:59 23:59 23:59 23:59 Intake Total 480 870 640 320 Output Total 2900 512 136 5743 Balance -2428 249 -853 -0330 Meds/Results Medications: Active Medications Generic Name Dose Route Start Last Admin Trade Name Freq PRN Reason Stop Dose Admin Acetaminophen 650 mg 03/12/20 01:00 Tylenol Tablet PO ONCE JACQUIE Albuterol 5 mg 03/11/20 20:00 03/15/20 08:57 Albuterol Sulf Neb 2.5mg/0.5ml INHALATION 5 mg Q6HRT JACQUIE Administration Buspirone HCl 5 mg 03/14/20 17:00 03/15/20 12:20 Buspar PO 5 mg TID JACQUIE Administration Buspirone HCl 2.5 mg 03/14/20 17:00 03/15/20 12:20 Buspar PO 2.5 mg TID JACQUIE Administration Enoxaparin Sodium 40 mg 03/14/20 21:00 03/14/20 20:46 Lovenox SUB-Q 40 mg HS JACQUIE Administration Gabapentin 100 mg 03/12/20 09:00 03/15/20 08:52 Neurontin PO 100 mg BID JACQUIE Administration Ipratropium [place] 0.5 mg 03/11/20 20:00 03/15/20 08:57 Atrovent Neb INHALATION 0.5 mg Q6HRT JACQUIE Administration Metoprolol Tartrate 25 mg 03/14/20 09:00 08
--- NOTE | 2020-03-15 17:49 | PM.IMPN ---
Progress Note: A&P Assessment and Plan (1) Mitral stenosis with insufficiency: Code(s): I05.2 - Rheumatic mitral stenosis with insufficiency Status: Acute Assessment and Plan: continue low-dose beta-kaitlynn as tolerated( 25 mg Q 12) with low blood pressure and continue to diurese, po lasix today controlling atrial rate with the MAT is important also (2) Diastolic CHF, acute on chronic: Code(s): I50.33 - Acute on chronic diastolic (congestive) heart failure Status: Acute Assessment and Plan: EF 55% on room air with moderate pulmonary hypertension and moderate mitral stenosis. Plan will be to control heart rate and blood pressure and diuresis as possible, as above change to po lasix today (3) Multifocal atrial tachycardia: Code(s): I47.1 - Supraventricular tachycardia Status: Acute Assessment and Plan: low-dose beta kaitlynn added per Cardiology and rate is better controlled. doubt will be able to increase above 25 Q 12 with her low blood pressure (4) Generalized anxiety disorder: Code(s): F41.1 - Generalized anxiety disorder Status: Acute Assessment and Plan: definitely contributing to her symptomatology. Continue the trazodone and buspirone (5) DVT prophylaxis: Code(s): Z29.9 - Encounter for prophylactic measures, unspecified Status: Acute Assessment and Plan: Lovenox Subjective Date/time seen: 03/15/20 17:49 Interval history: date of visit 03/15. 84-year-old white female admitted with increasing shortness breath and generalized weakness. Found to have diastolic heart failure and MAT. diuresing and low-dose beta-kaitlynn and she is feeling better , less sob but still very anxious Exam Narrative: Exam Narrative: blood pressure 102/74 pulse is 88 and regular afebrile saturating 96% on room air lungs clear today CV regular rate rhythm with frequent ectopics abdomen soft nontender extremities without edema neuro alert cooperative no focal deficits Objective Data Vital Signs Vital Signs: Vital Signs - 24 hr 03/14/20 18:00 03/14/20 19:50 03/14/20 20:00 Temperature 36.0 C L Pulse Rate 100 98 95 Respiratory Rate 16 Blood Pressure 109/78 Pulse Oximetry 95 03/14/20 20:10 03/14/20 20:20 03/14/20 20:46 Temperature Pulse Rate 88 96 99 Respiratory Rate 18 18 Blood Pressure Pulse Oximetry 03/14/20 22:00 03/15/20 00:00 03/15/20 02:00 Temperature 36.8 C Pulse Rate 92 91 84 Respiratory Rate 16 Blood Pressure 106/62 Pulse Oximetry 100 03/15/20 02:45 03/15/20 02:54 03/15/20 04:00 Temperature 36.2 C L Pulse Rate 75 83 92 Respiratory Rate 18 18 22 H Blood Pressure 93/66 L Pulse Oximetry 98 03/15/20 06:00 03/15/20 08:00 03/15/20 08:50 Temperature 36.8 C Pulse Rate 97 101 H 106 H Respiratory Rate 24 H Blood Pressure 111/82 Pulse Oximetry 95 03/15/20 08:51 03/15/20 08:57 03/15/20 09:07 Temperature Pulse Rate 106 H 96 97 Respiratory Rate 18 18 Blood Pressure Pulse Oximetry 03/15/20 10:00 03/15/20 12:00 03/15/20 14:00 Temperature 36.3 C L Pulse Rate 98 84 90 Respiratory Rate 28 H Blood Pressure 91/77 L Pulse Oximetry 95 03/15/20 14:47 03/15/20 14:57 03/15/20 16:00 Temperature Pulse Rate 90 89 105 H Respiratory Rate 18 18 Blood Pressure Pulse Oximetry 03/15/20 16:57 Temperature 36.6 C Pulse Rate 92 Respiratory Rate 22 H Blood Pressure 102/75 Pulse Oximetry 96 Intake/Output Intake/Output: Intake & Output 03/12/20 03/13/20 03/14/20 03/15/20 23:59 23:59 23:59 23:59 Intake Total 480 870 640 560 Output Total 2900 738 346 5154 Balance -3560 307 -007 -3683 Meds/Results Medications: Active Medications Generic Name Dose Route Start Last Admin Trade Name Freq PRN Reason Stop Dose Admin Acetaminophen 650 mg 03/12/20 01:00 Tylenol Tablet PO ONCE JACQUIE Albuterol 5 mg 0
--- NOTE | 2020-03-15 19:15 | PC.NURSE ---
This patient, Zelda Chin, was transferred to [facility] on 03/15/20 at 1915. Personal belongings sent with patient. Report given to NATHAN Guillaume. Appropriate documentation sent with patient.
[2020-03-15] MEDS: ENOXAPARIN 40 MG/0.4 ML SYRINGE SUB-Q (22:41)
[2020-03-15] MEDS: traZODone HCL 50 MG TABLET 200 MG PO (22:43)
[2020-03-15] MEDS: ACETAMINOPHEN 325 MG TABLET 650 MG PO (22:44)
[2020-03-16] VITALS (14 sets, daily range): BP systolic 82–110; BP diastolic 63–82; PULSE 84–95; RESP 18; TEMP 36.2–36.4; O2SAT 91–97
[2020-03-16] MEDS: IPRATROPIUM BR 0.02% INH SOLN 0.5 MG/2.5 ML VIAL INHALATION ×3 (02:22→13:01)
[2020-03-16] MEDS: ALBUTEROL SULFATE NEB 2.5 MG/0.5 ML INH 5 MG INHALATION ×3 (02:23→13:01)
[2020-03-16] MEDS: ACETAMINOPHEN 325 MG TABLET 650 MG PO (03:15)
[2020-03-16 07:05] LABS: Anion Gap 6 mmol/L (8-16); Blood Urea Nitrogen 26 mg/dL (7-17); Calcium 8.4 mg/dL (8.4-10.2); Carbon Dioxide 30 mmol/L (22-30); Chloride 99 mmol/L (98-107); Estimated Glomerular Filt Rate > 60; Glucose 121 mg/dL (65-105); Potassium 4.2 mmol/L (3.4-5.0); Sodium 135 mmol/L (137-145)
[2020-03-16] MEDS: GABAPENTIN 100 MG CAPSULE PO (08:36)
[2020-03-16] MEDS: busPIRone HCL 5 MG TABLET PO ×2 (08:37→13:00)
[2020-03-16] MEDS: FUROSEMIDE 40 MG TABLET PO (08:37)
[2020-03-16] MEDS: METOPROLOL TARTRATE 25 MG TABLET PO (08:37)
[2020-03-16] MEDS: POTASSIUM CHLORIDE 10 MEQ TABLET.ER PO (08:38)
[2020-03-16] MEDS: busPIRone HCL 2.5 MG TABLET PO ×2 (08:40→13:00)
[2020-03-16] MEDS: traZODone HCL 50 MG TABLET PO ×2 (08:40→12:59)
[2020-03-16] MEDS: NICOTINE (*PBKC) 21 MG PATCH 1 PATCH TRANSDERM (08:41)
[2020-03-16] MEDS: TOLNAFTATE 1% POWDER 45 GM BTL 1 APPLIC TOPICAL (08:41)
[2020-03-16] MEDS: PANTOPRAZOLE 40 MG TABLET PO (08:41)
--- NOTE | 2020-03-16 13:44 | PM.PNCARD ---
Progress Note: A&P Assessment and Plan (1) Acute diastolic CHF (congestive heart failure): Code(s): I50.31 - Acute diastolic (congestive) heart failure Status: Acute Assessment and Plan: Excellent diuresis , now euvolemic, and p.o. Lasix. Okay for discharge from my point of view. My office will call pt to schedule a FU visit. (2) Multifocal atrial tachycardia: Code(s): I47.1 - Supraventricular tachycardia Status: Acute Assessment and Plan: No definite a fib; looks like MAT. On metoprolol, 25 mg BID Telemetry shows mostly sinus rhythm rate in the 80s, occasional PAC, arrhythmia improved. 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 However her mitral valve gradient was 9 mm Hg, a bit elevated, so we will need to re-evaluate the mitral stenosis in the future. Probably repeat an echo in 6 months. (4) Hypotension: Code(s): I95.9 - Hypotension, unspecified Status: Acute Assessment and Plan: Soft blood pressures but asymptomatic. (5) Generalized anxiety disorder: Code(s): F41.1 - Generalized anxiety disorder Status: Acute Assessment and Plan: Very anxious, contributing to sx. Daughter says, She likes her drugs. She needs to watch that pt doesn't take too much. Subjective Date/time seen: 03/16/20 13:44 Interval history: date of visit 03/14. 84-year-old white female admitted with increasing shortness breath and generalized weakness. Found to have diastolic heart failure and MAT. 03/15/2020: patient is sleeping flat in bed upon entering the room upon awakening denies significant dyspnea at this time. Is in sinus rhythm heart rate in the 80s no significant arrhythmias today. Date of service: 03/16/2020 This tatiana has been feeling better today, up to the bathroom end up in a chair with no shortness of breath. Edema has improved. She does complain of severe anxiety problems which plagued her this morning. Review of Systems Constitutional: Constitutional: Reports no additional constitutional complaints and Reports weakness ENT: Denies epistaxis Cardiovascular: Cardiovascular: Denies chest pain, Denies pedal edema, Denies leg edema, Denies lightheadedness, Reports dyspnea and Reports dyspnea on exertion Respiratory: Respiratory: Denies chest congestion, Denies dyspnea and Denies dyspnea on exertion Gastrointestinal: Gastrointestinal: Denies abdominal pain Genitourinary: Genitourinary: Denies nocturia Musculoskeletal: Musculoskeletal: Reports no additional musculoskeletal complaints Integumentary/Breasts: Skin/Breast: Reports wounds ( Wound on right lower extremity has been oozing) Neurologic: Reports system reviewed and no additional complaints, except as documented and Reports weakness Psychiatric: Psychiatric: Reports anxiety Exam Narrative: Exam Narrative: Pleasant,anxious older lady, in no respiratory distress Const: General: no acute distress and uncomfortable Other: Anxious HENMT: Mouth: Yes moist mucous membranes Eyes: EOM: EOMs intact bilaterally Neck: Neck: No no JVD ( JVD noted) Resp: Auscultation: rales ( few scattered rales right lower lobe) Cardio: Rhythm: abnormal rhythm ( occasionally irregular) GI: Inspection: non-distended Skin: Wounds: wounds noted (discoloration of LRE w/ wound, dressed) Neuro: Speech: normal speech Motor exam (neuro): Normal motor muscle tone present throughout Extrem: General: no pedal edema Other: Mild pretibial and ankle edema Psych: Mental Status: mental status grossly normal Affect: Anxious affect present Objective Data Vital Signs Vital Signs: Vi
--- NOTE | 2020-03-20 14:49 | PM.DS ---
DS: Admitting Diagnosis Admitting Diagnosis Admitting Diagnosis: Lower leg swelling. DS: Discharge Diagnosis Discharge Diagnosis (1) Mitral stenosis with insufficiency: Code(s): I05.2 - Rheumatic mitral stenosis with insufficiency Status: Acute Assessment and Plan: continue low-dose beta-kaitlynn as tolerated( 25 mg Q 12) with low blood pressure and continue to diurese, po lasix 40 mg at d/c controlling atrial rate with the MAT is important also (2) Diastolic CHF, acute on chronic: Code(s): I50.33 - Acute on chronic diastolic (congestive) heart failure Status: Acute Assessment and Plan: EF 55% on room air with moderate pulmonary hypertension and moderate mitral stenosis. Plan will be to control heart rate and blood pressure , as above changed to po lasix and contiue at d/c (3) Multifocal atrial tachycardia: Code(s): I47.1 - Supraventricular tachycardia Status: Acute Assessment and Plan: low-dose beta kaitlynn added per Cardiology and rate is better controlled. doubt will be able to increase above 25 Q 12 with her low blood pressure (4) Generalized anxiety disorder: Code(s): F41.1 - Generalized anxiety disorder Status: Acute Assessment and Plan: definitely contributing to her symptomatology. Continue the trazodone and buspirone DS: Summary Hospital Course Hospital Course: 84-year-old HS female admitted with rapid atrial rhythm and congestive heart failure. Found to be in multiple atrial tachycardia which was controlled with low-dose beta-kaitlynn. Echo revealed ejection fraction 50-55% and diastolic dysfunction with moderate mitral stenosis . Blood pressure limited amount of beta-kaitlynn with her low blood pressure and only on 25 mg b.i.d. of metoprolol at discharge she will follow-up with cardiology for repeat echo in the future to assess progression of mitral valve and her primary care. Time Spent with Patient Time attestation: Total time spent providing and/or coordinating discharge services: 35 minutes Exam Narrative: Exam Narrative: condition on discharge blood pressure 90/62 pulse is 90 with occasional ectopic saturating 97% on room air lungs clear CV regular with occasional ectopic abdomen soft nontender extremities without edema neuro alert cooperative but anxious with physical therapy and taking the diet well Discharge Plan Discharge Attending physician on discharge: Chicho Stanley Consulting providers: Rajani Cage ; Jeffry Hummel ; Kenan Nance ; Pao Camilo ; Bi Rosen ; George Ng V. Discharging Clinician: Chicho Stanley Patient Disposition: Home Health Service Activity: as tolerated Diet: low sodium Discharge Instructions: Per Care Coordination: The patient will have [facility] for mcc, PT, and OT services. They can be reached at [phone]. [facility] will call you to schedule a follow-up visit. If you do not hear from us, then please call us at: [phone]. --Stay away from salt and salty foods. --Call if you notice any recurrent swelling of her legs. --Check your weight every morning after voiding. If you gain more than 3 lb, this may be water weight. Please call us if you gain 3 pounds or more. Patient Instructions: Antibiotic Form, How to Stop Smoking (DC) Stand Alone Forms: General Discharge Information Follow-up/Referrals: Matilde Lee MD [Primary Care Provider] - 2 Weeks Rajani Cage MD [Physician] - 3 Weeks Discharge Medications: New furosemide 40 mg Tablet 40 mg PO DAILY Qty: 30 RF: 0 metoprolol tartrate 25 mg Tablet 25 mg PO Q12HR Qty: 60 RF: 0 Continued acetaminophen [Tylenol Arthritis Pain] 650 mg tablet extended release 650 mg PO ONCE Qty: 90 RF: 3 esomeprazole magnesium [Nexium 24HR] 20 mg capsule,delayed release(DR/EC) 20 mg PO DAILY Qty: 90 RF:
== END 2020-03-16 15:15 | disposition home health service (06) | DRG 292 ==
LOC: ANHED 16:14 → ANHIMU 17:35 → ANH3MEDSUR 03-18 17:12 → ANHIMU 03-18 17:12
PROVIDERS: Physician Assistant; Admitting Provider Family Medicine; Emergency Provider Emergency Medicine; PCP Family Medicine; Visit Provider Internal Medicine
DX: I50.33 Acute on chronic diastolic (congestive) heart failure (principal); I47.1 Supraventricular tachycardia; I05.2 Rheumatic mitral stenosis with insufficiency; I95.9 Hypotension, unspecified; F41.1 Generalized anxiety disorder; K21.9 Gastro-esophageal reflux disease without esophagitis; M19.90 Unspecified osteoarthritis, unspecified site; Z96.651 Presence of right artificial knee joint; F17.210 Nicotine dependence, cigarettes, uncomplicated; I27.20 Pulmonary hypertension, unspecified; Z98.42 Cataract extraction status, left eye; Z98.41 Cataract extraction status, right eye; Z90.49 Acquired absence of other specified parts of digestive tract; Z98.1 Arthrodesis status
CPT/HCPCS: 36415; 71046; 80048; 80053; 80069; 81001; 83880; 84484; 85025; 85610; 85730; 93005; 93306; 93970; 94640; 96374; 96376; 97110; 97161; 97165; 97530; 97535; 99285; A9270; G0378; J1650; J1940

== ENCOUNTER 2020-04-02 11:16 | Outpatient (CLI) | payer MEDICARE, SELFPAY ==
[2020-04-02 12:15] LABS: Anion Gap 5 mmol/L (8-16); Blood Urea Nitrogen 13 mg/dL (7-17); Calcium 8.7 mg/dL (8.4-10.2); Carbon Dioxide 31 mmol/L (22-30); Chloride 102 mmol/L (98-107); Estimated Glomerular Filt Rate > 60; Glucose 137 mg/dL (65-105); Potassium 3.4 mmol/L (3.4-5.0); Sodium 138 mmol/L (137-145)
== END 2020-04-02 11:17 | disposition home or self-care (01) ==
LOC: ANHLAB 11:18
PROVIDERS: PCP Family Medicine; Visit Provider Nurse Practitioner Adult Health
DX: I50.32 Chronic diastolic (congestive) heart failure (principal)
CPT/HCPCS: 36415; 80048

== ENCOUNTER 2020-07-05 09:38 | Outpatient (CLI) | payer MEDICARE, SELFPAY ==
[2020-07-05 10:27] LABS: Anion Gap 6 mmol/L (8-16); Blood Urea Nitrogen 20 mg/dL (7-17); Carbon Dioxide 33 mmol/L (22-30); Chloride 101 mmol/L (98-107); Estimated Glomerular Filt Rate > 60; Glucose 132 mg/dL (65-105); Potassium 3.9 mmol/L (3.4-5.0); Sodium 140 mmol/L (137-145)
== END 2020-07-05 09:39 | disposition home or self-care (01) ==
PROVIDERS: Visit Provider Internal Medicine Cardiovascular Disease
DX: I50.32 Chronic diastolic (congestive) heart failure (principal); R60.0 Localized edema
CPT/HCPCS: 36415; 80048

== ENCOUNTER 2021-03-17 12:26 | Inpatient (IN) | payer MEDICARE, SELFPAY ==
[2021-03-17] VITALS (8 sets, daily range): BP systolic 75–106; BP diastolic 43–73; PULSE 78–95; RESP 18–27; TEMP 36.3–36.7; O2SAT 94–97; BMI 25.0
--- NOTE | ~2021-03-17 | XR_ITS ---
EXAMINATION: XR chest 1V portable, XR abdomen obstructive series DATE: 03/20/2021 12:21 INDICATION: Shortness of breath and abdominal pain TECHNIQUE: 1. AP view of the chest was obtained. 2. AP supine and upright views of the abdomen were obtained. COMPARISON: Chest radiograph dated 03/17/[address] abdomen and pelvis dated 08/15/2016 FINDINGS: Chest: Increased interstitial pattern in the bilateral lower lungs with bronchial wall thickening versus per ibronchial cuffing most evident in the right infrahilar region. No pleural effusion or pneumothorax. The cardiomediastinal silhouette is within normal limits for AP technique. Mitral annular calcificati on. Atherosclerotic calcifications along the aorta and bilateral subclavian and axillary arteries. Mo derate thoracic spondylosis. Severe bilateral glenohumeral osteoarthritis with right rotator cuff tea r. Obstructive series: No dilated bowel to suggest obstruction. No free intraperitoneal gas. Mild lumbar levocurvature with severe upper lumbar spondylosis. Additional prominent atherosclerotic calcification in the splenic an d bilateral iliac and femoral arteries. Right adrenal coarse calcification in the right upper quadran t. L4-L5 posterior spinal fusion with bilateral plate and screw fixations. IMPRESSION: 1. Mild increased interstitial pattern in the bilateral lower lung zones with some bronchial wall thi ckening versus peribronchial cuffing which could represent mild pulmonary edema or bronchitis/pneumon ia. 2. Normal nonobstructive bowel gas pattern. Reviewed, dictated and finalized at location A. IMPRESSION: 1. Mild increased interstitial pattern in the bilateral lower lung zones with s ome bronchial wall thickening versus peribronchial cuffing which could represen t mild pulmonary edema or bronchitis/pneumonia. 2. Normal nonobstructive bowel gas pattern.
--- NOTE | ~2021-03-17 | XR_ITS ---
EXAMINATION: XR chest 2V DATE: 03/17/2021 13:01 INDICATION: Cough TECHNIQUE: PA and lateral views of the chest are obtained. COMPARISON: 03/11/2020 FINDINGS: Cardiomegaly is noted. There are small pleural effusions. Minimal airspace opacities are pr esent in the lung bases. A mild diffuse interstitial pattern is present. There is no pneumothorax. Ca lcified atherosclerosis is noted. There is osteoarthritis of the shoulders. There is severe thoracic spondylosis. An unchanged chronic burst fracture of T12 is noted. IMPRESSION: 1. Cardiomegaly with likely mild pulmonary edema. 2. Small pleural effusions. 3. Bibasilar airspace opacities, consistent with atelectasis versus pneumonia. Reviewed, dictated and finalized at location A.
--- NOTE | 2021-03-17 12:27 | ECG_ITS ---
Measurements Intervals [place] Rate: 93 P: 21 IN: 193 QRS: -46 QRSD: 107 T: 47 QT: 362 QTc: 450 Interpretive Statements SINUS RHYTHM LEFT ANTERIOR FASCICULAR BLOCK LEFT VENTRICULAR HYPERTROPHY AND ST-T CHANGE ABNORMAL ECG Electronically Signed On 03-17-2021 12:45:18 CDT by Bi Rosen D.O.
[2021-03-17 12:50] LABS: Basophils Percent Auto 0.3 % (0.2-1.2); Eosinophils Percent Auto 0.1 % (0-4.4); Hematocrit 35.4 % (37.0-47.0); Hemoglobin 11.4 g/dL (12.0-15.0); Immature Granulocyte Absolute 0.05 K/mm3 (0.00-0.031); Immature Granulocyte Percent A 0.6 % (0-0.5); Lymphocytes Absolute Auto 0.61 K/mm3 (0.9-3.2); Lymphocytes Percent Auto 6.7 % (18.3-44.2); Mean Corpuscular HGB Conc 32.2 g/dl (32-36); Mean Corpuscular Hemoglobin 28.5 pg (26-34); Mean Corpuscular Volume 88.5 fl (80-100); Mean Platelet Volume 9.5 fl (7.4-10.4); Monocytes Absolute Auto 0.7 K/mm3 (0.1-0.6); Monocytes Percent Auto 7.2 % (2.6-8.5); Neutrophils Absolute Auto 7.7 K/mm3 (1.3-6.7); Neutrophils Percent Auto 85.1 % (45.5-73.1); Platelet Count Result 311 k/mm3 (150-375); Red Cell Distribution Width 18.2 % (11.5-14.5); White Blood Count 9.1 K/mm3 (4.5-10.0)
[2021-03-17 12:58] LABS: INR 0.9; Partial Thromboplastin Time 30.4 SECONDS (22.3-36.8); Prothrombin Time 12.5 Seconds (11.1-14.7)
[2021-03-17 13:04] LABS: Anion Gap 7 mmol/L (8-16); Blood Urea Nitrogen 24 mg/dL (7-17); Calcium 8.6 mg/dL (8.4-10.2); Carbon Dioxide 29 mmol/L (22-30); Chloride 101 mmol/L (98-107); Estimated Glomerular Filt Rate 53; Glucose 117 mg/dL (65-110); Potassium 3.4 mmol/L (3.4-5.0); Sodium 137 mmol/L (137-145)
[2021-03-17 13:33] LABS: NT Pro B Type Natriuretic Pept 21500 pg/mL (5-100); Troponin I 0.078 ng/mL (0.000-0.034)
--- NOTE | 2021-03-17 13:51 | PC.NURSE ---
This RN into pts room. Pt is sitting in wheelchair. Pt requested to stay seated in chair at this time.
--- NOTE | 2021-03-17 14:14 | ED.GENADULT ---
HPI - General Adult General Chief complaint: Unspecified Stated complaint: BLE SWELLING, COUGH Time Seen by Provider: 03/17/21 13:58 History of Present Illness HPI narrative: 85 yo female w/ h/o CHF presents to the Ed c/o generalized weakness. Her daughter has noted that for the past few days she has been increasingly weak and lethargic. She has also developed increasing BLE edema and a cough. Today her blood pressure at home was 50 systolic. She reports that her normal is about 75/50. No fever. She has not had a COVID-19 vaccine. She has previously been infected. Related Data Home Medications Medication Instructions Recorded Confirmed atorvastatin 10 mg tablet 10 mg PO DAILY 02/25/21 bumetanide 2 mg tablet 1 mg PO DAILY tablet 02/25/21 digoxin 125 mcg (0.125 mg) tablet 125 mcg PO DAILY 02/25/21 metoprolol tartrate 25 mg tablet 25 mg PO Q12HR PRN tablet 02/25/21 potassium chloride 10 mEq 10 meq PO BID tablet 02/25/21 tablet,extended release trazodone 100 mg tablet See Rx Instructions .ROUTE 02/25/21 .COMPLEX tablet Allergies Allergy/AdvReac Type Severity Reaction Status Date / Time epinephrine Allergy Severe Dyspnea / Verified 02/25/21 13:55 SOB Review of Systems Review of Systems: All systems reviewed & are unremarkable except as noted in HPI and below Cardiovascular: Cardiovascular: Denies chest pain Respiratory: Respiratory: Reports dyspnea Gastrointestinal: Gastrointestinal: Reports no additional gastrointestinal complaints [facility] Past Medical History Medical History 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 Her grandson lives with her. Her daughter lives across the street. 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 She smokes about a pack of cigarettes per day. She denies alcohol and illicit substance abuse. She designates her daughter, Shilpa Miller, as her surrogate decision maker and she wishes to be a full code Smoking packs per day: 0.5 Smoking cigarettes per day: 10.0 Years smoked: 25 Smoking pack-years: 12.50 Smoking status: Current every day smoker Tobacco type: cigarettes Alcohol intake: never Substance use: never Substance use type: does not use Gender identity (if verbalized by the patient): Female Sexual Orientation (if Verbalized by the Patient): Straight or Heterosexual Spiritual care concerns: No Exam Const: General: no acute distress, alert and ill appearing chronically Nutritional Appearance: thin Orientation/consciousness: oriented to person and oriented to place HENMT: Head: normal to inspection Chest: Chest palpation & inspection: no tenderness Resp: Effort & Inspection: normal respiratory effort Auscultation: clear to auscultation bilaterally, rales bilateral at the base, no rhonchi and no wheezes Cardio: Rate: regular rate Rhythm: regular rhythm GI: Inspection: non-distended GI Palp: Yes Soft to palpation and No Tenderness to palpation present (GI) Skin: General skin exam: normal color Neuro: General: moves all extremities Speech: normal speech Extrem: General: edema bilatera
[2021-03-17 15:25] LABS: Add Urine Microscopic? YES; Appearance Urine Cloudy (Clear); Bacteria Urine Trace /hpf; Bilirubin Urine Negative (Negative); Blood Urine Negative (Negative); Color Urine Yellow (Yellow); Glucose Urine UA Negative (Negative); Ketones Urine Negative (Negative); Leukocyte Esterase Ur 3+ LEU/UL (Negative); Mucus Urine Rare /lpf; Nitrate Urine Negative (Negative); Protein Urine Negative (Negative); Specific Grav Ur 1.011 (1.001-1.035); Squamous Epithelial Cell Urine Moderate /hpf (Few); Urobilinogen Urine Negative mg/dL (<2.0)
[2021-03-17 16:18] LABS: Lactic Acid Reflex 1.7 mmol/L (0.7-2.1)
--- NOTE | 2021-03-17 17:55 | PM.IMHP ---
H&P: HPI History of Present Illness Date/Time: 03/17/21 17:55 this is a 85-year-old female patient who was brought into the emergency room here her daughter for complaints of cold-like symptoms. The patient has been coughing who but has been a the the frothy sputum. The patient does have a history of diastolic congestive heart failure. The patient has been on Bumex at home. She has also had increased lower extremity edema. The daughter was not aware that the patient has fever but she stated that the patient complained of feeling achy. The patient has been fully vaccinated for COVID-19. The patient has a history of dementia as a daughters answering questions for the patient. The patient's blood pressure was found to be low at 75/58. However on 02/25/2021 patient's blood pressure was noted to be 84/50 in her primary care doctor's office. Chest x-ray was read as the following. Cardiomegaly with likely mild pulmonary edema. 2. Small pleural effusions. 3. Bibasilar airspace opacities, consistent with atelectasis versus pneumonia. ED empirically started the patient on antibiotic. Patient's troponin was noted to be 0.078 however her troponin [place] [address]. The patient is being admitted to inpatient services on the date of service of 03/17/2021. Chief Complaint: cough Review of Systems Review of Systems: All systems reviewed & are unremarkable except as noted in HPI and below Constitutional: Constitutional: Reports as per HPI and Reports no additional constitutional complaints Eyes: Eyes: Reports as per HPI and Reports no additional eye complaints ENT: Reports system reviewed and no additional complaints, except as documented and Reports Normal hearing present Cardiovascular: Cardiovascular: Reports no additional cardiovascular complaints Respiratory: Respiratory: Reports no additional respiratory complaints and Reports no additional respiratory complaints Gastrointestinal: Gastrointestinal: Reports as per HPI and Reports no additional gastrointestinal complaints Musculoskeletal: Musculoskeletal: Reports no additional musculoskeletal complaints Integumentary/Breasts: Skin/Breast: Reports system reviewed and no additional complaints, except as docu and Reports as per HPI Neurologic: Reports system reviewed and no additional complaints, except as documented, Reports as per HPI and Reports Normal hearing present Psychiatric: Psychiatric: Reports no additional psychiatric complaints and Reports as per HPI Endocrine: Endocrine: Reports no additional endocrine complaints Hematologic/Lymphatic: Hematologic/Lymphatic: Reports no additional hematologic/lymphatic complaints Allergic/Immunologic: Allergic/Immunologic: Reports no additional allergic/immunologic complaints PMFSH Past Medical History Medical History 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 Her grandson lives with her. Her daughter lives across the street. 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 She smokes about a pack of cigarettes per day. She denies alcohol and illicit substance abuse. She designates her daughter
--- NOTE | 2021-03-17 18:33 | ADMGEN ---
This patient, Zelda Chin, was admitted to IMU Room 206-02 at 1818. Patient/family oriented to hospital policies and general routines including ID bracelet, bed and alarms, visiting hours, pain management, procedures, bathroom and other care routines, personal items, smoking policy, room service/diet, and visiting hours. Information on how to activate the Rapid Response Team has been discussed. Patient/Family are encouraged to report perceived risks to care and to ask questions if they do not understand what they are told or what they should do.
[2021-03-17 20:16] LABS: Troponin I 0.089 ng/mL (0.000-0.034)
[2021-03-17] MEDS: traZODone HCL 50 MG TABLET 200 MG PO (22:19)
[2021-03-18] VITALS (16 sets, daily range): BP systolic 99–111; BP diastolic 43–82; PULSE 77–109; RESP 14–22; TEMP 36.2–36.8; O2SAT 92–99; BMI 25.0
--- NOTE | 2021-03-18 | ECHO_ITS ---
Patient Info Name: Zelda Chin Age: 85 years : 1935 Gender: Female Ht: 55 in Wt: 118 lbs BSA: 1.46 m2 HR: 108 bpm BP: 99 / 43 mmHg Heart Rhythm: Tachycardia Technical Quality: Good Exam Date: 03/18/2021 1:57 PM Exam Location: [facility] Patient Status: Inpatient Admit Date: 03/17/2021 Staff Ordering Physician: Belinda Elizabeth NP Study Coordinator: Aranza Lu RDCS Attending Provider: Brandon Fernandez MD Referring Physician: Glenn CORNELIUS; Exam Type: CA echo doppler color flow Study Info Indications I50.9 - Heart failure, unspecified Complete two-dimensional, color flow and Doppler transthoracic echocardiogram is performed. Summary 1. Complete two-dimensional, color flow and Doppler transthoracic echocardiogram is performed. 2. Left ventricular chamber dimension is upper limits of normal. 3. Left ventricular systolic function is moderately reduced, estimated at 35-40%. 4. There is mildly increased left ventricular wall thickness. 5. The left ventricular diastolic function is grade II diastolic dysfunction. 6. Left atrial chamber dimension is moderately enlarged. 7. There is mild aortic valve stenosis with a peak velocity of 144 cm/s, mean gradient of 3 mmHg, and aortic valve area of 1.8 cm2. 8. There is trace aortic valve regurgitation. 9. There is moderate mitral valve stenosis. 10. There is mild to moderate mitral valve regurgitation. 11. There is trace tricuspid valve regurgitation. 12. Severe pulmonary hypertension, estimated pulmonary arterial systolic pressure is 61 mmHg. 13. Normal inferior vena cava with no collapse upon inspiration consistent with elevated right atrial pressure, 10 mmHg. Left Ventricle Left ventricular chamber dimension is upper limits of normal. Left ventricular systolic function is moderately reduced, estimated at 35-40%. There is mildly increased left ventricular wall thickness. The left ventricular diastolic function is grade II diastolic dysfunction. Global longitudinal strain is severely elevated at -4 %. Right Ventricle Right ventricular chamber dimension is normal. Right ventricular systolic function is normal. Left Atria Left atrial chamber dimension is moderately enlarged. Right Atria Right atrial chamber dimension is normal. Aortic Valve The aortic valve is not well visualized. There is mild aortic valve stenosis with a peak velocity of 144 cm/s, mean gradient of 3 mmHg, and aortic valve area of 1.8 cm2. There is trace aortic valve regurgitation. There is mild aortic valve calcification. Pulmonic Valve The pulmonic valve is not well visualized. Mitral Valve The mitral valve has thickened leaflets. There is moderate mitral valve stenosis. There is mild to moderate mitral valve regurgitation. The mitral valve annulus is severely calcified. Tricuspid Valve The tricuspid valve leaflets are normal. There is trace tricuspid valve regurgitation. Severe pulmonary hypertension, estimated pulmonary arterial systolic pressure is 61 mmHg. Pericardium/Pleural The pericardium appears normal. There is small pericardial effusion. Inferior Vena Cava Normal inferior vena cava with no collapse upon inspiration consistent with elevated right atrial pressure, 10 mmHg. Aorta The aortic root size at the sinus of Valsalva is normal. There is mild aortic atherosclerosis. Left Ventricular Outflow Tract Name
[2021-03-18 05:17] LABS: Basophils Percent Auto 0.5 % (0.2-1.2); Eosinophils Absolute Auto 0.1 K/mm3 (0-0.3); Eosinophils Percent Auto 1.5 % (0-4.4); Hematocrit 35.5 % (37.0-47.0); Hemoglobin 11.4 g/dL (12.0-15.0); Immature Granulocyte Absolute 0.05 K/mm3 (0.00-0.031); Immature Granulocyte Percent A 0.6 % (0-0.5); Lymphocytes Absolute Auto 0.79 K/mm3 (0.9-3.2); Mean Corpuscular HGB Conc 32.1 g/dl (32-36); Mean Corpuscular Hemoglobin 29.1 pg (26-34); Mean Corpuscular Volume 90.6 fl (80-100); Mean Platelet Volume 9.8 fl (7.4-10.4); Monocytes Absolute Auto 0.9 K/mm3 (0.1-0.6); Monocytes Percent Auto 9.9 % (2.6-8.5); Neutrophils Absolute Auto 6.9 K/mm3 (1.3-6.7); Neutrophils Percent Auto 78.5 % (45.5-73.1); Platelet Count Result 252 k/mm3 (150-375); Red Blood Count 3.92 M/mm3 (4.2-5.4); Red Cell Distribution Width 17.9 % (11.5-14.5); White Blood Count 8.8 K/mm3 (4.5-10.0)
[2021-03-18 05:35] LABS: Magnesium 1.6 mg/dL (1.6-2.3)
[2021-03-18 08:16] LABS: Digoxin 0.9 ng/mL (0.8-2.0)
[2021-03-18 08:30] LABS: Alanine Aminotransferase 11 U/L (4-35); Albumin Level 3.3 g/dL (3.5-5.1); Alkaline Phosphatase 68 U/L (38-126); Anion Gap 7 mmol/L (8-16); Aspartate Amino Transferase 20 U/L (14-36); Bilirubin,Total 0.4 mg/dL (0.2-1.3); Blood Urea Nitrogen 21 mg/dL (7-17); Calcium 8.6 mg/dL (8.4-10.2); Carbon Dioxide 28 mmol/L (22-30); Chloride 96 mmol/L (98-107); Estimated Glomerular Filt Rate 59; Glucose 103 mg/dL (65-110); Potassium 2.6 mmol/L (3.4-5.0); Sodium 131 mmol/L (137-145)
[2021-03-18] MEDS: busPIRone HCL 2.5 MG TABLET PO ×3 (09:17→16:22)
[2021-03-18] MEDS: POTASSIUM CHLORIDE 10 MEQ TABLET.ER PO ×2 (09:17→16:23)
[2021-03-18] MEDS: BUMETANIDE INJ 1 MG/4 ML VIAL IV PUSH ×2 (09:17→16:23)
[2021-03-18] MEDS: busPIRone HCL 5 MG TABLET PO ×3 (09:18→16:22)
[2021-03-18] MEDS: ATORVASTATIN 10 MG TABLET PO (09:18)
[2021-03-18] MEDS: PANTOPRAZOLE 40 MG TABLET PO (09:18)
--- NOTE | 2021-03-18 14:13 | PM.IMPN ---
Progress Note: A&P Assessment and Plan (1) Community acquired pneumonia: Code(s): J18.9 - Pneumonia, unspecified organism Status: Acute Assessment and Plan: Patient presents with cough and CXR showing bibasilar airspace disease. She has been started on azithromycin and Rocephin in the emergency room. BCx NGTD. Sputum ordered. Continue IV abx for now. Check bedside swallow therapy (2) Diastolic CHF, acute on chronic: Code(s): I50.33 - Acute on chronic diastolic (congestive) heart failure Status: Acute Assessment and Plan: Patient presentw with SOB and leg edema. CXR showing cardiomegaly with likely mild pulmonary edema and small pleural effusions. BNP 21K. Echo Feb 2020 showing EF 50-55% with diastolic dysfunction, moderate pulm HTN and moderate MR. She has been started on IV Bumex. Repeat Echo ordered. COntinue to monitor closely. Add Isaac hose given the HoTN. PT/OT. (3) Elevated troponin: Code(s): R79.89 - Other specified abnormal findings of blood chemistry Status: Acute Assessment and Plan: Patient has chronically elevated troponins. The patient is not complaining of any chest pain. No acute EKG changes. Most likely nonischemic myocardial injury related to congestive heart failure. Follow. (4) Hypotension: Qualifiers: Hypotension type: other hypotension type Qualified Code(s): I95.89 - Other hypotension Code(s): I95.9 - Hypotension, unspecified Status: Acute Assessment and Plan: Patient has chronically low BP by report. BP 77/43 on admisison but improved to the point that she is tolerating the Bumex IV. Continue to monitor BP closely (5) Dementia: Code(s): F03.90 - Unspecified dementia without behavioral disturbance Status: Acute Assessment and Plan: Oriented this morning. Will continue with home medications (6) Generalized anxiety disorder: Code(s): F41.1 - Generalized anxiety disorder Status: Acute Assessment and Plan: Mood stable. Continue with home medications. (7) Tobacco abuse: Code(s): Z72.0 - Tobacco use Status: Acute Assessment and Plan: Patient was educated about the benefits of smoking cessation. (8) DVT prophylaxis: Code(s): Z29.9 - Encounter for prophylactic measures, unspecified Status: Acute Assessment and Plan: SCDs; add Lovenox (9) Hypokalemia: Code(s): E87.6 - Hypokalemia Status: Acute Assessment and Plan: Potassium level was low this morning related to diuretic therapy. Potassium was replaced. Repeat level was ordered. Will also check magnesium level. Continue to replace electrolytes as needed. Subjective Date/time seen: 03/18/21 14:13 Interval history: 85yo female with CHF and dementia here for cough and leg edema. No problems overnight. SOb better, Still with cough without change and is mildly productive. No CP. No change in the LE edema. No n/v. She uses a walker at home. She received the COVID vaccine in the spring. No odynophagia or dysphagia. Exam Narrative: AF 98.2 111/82 107 16 95% Gen - NARD Chest -breath sounds are coarse anteriorly. Left greater than right bibasilar inspiratory crackles. Normal respiratory rate. CV - RRR S1/S2. Tele showing sinus arrhythmias on occasion Abd - Soft, NT/ND, Positive BS Ext - 2+ pitting pedal edema Neuro - Alert and oriented x4 Psych - pleasant and cooperative Skin - Warm and dry Objective Data Vital Signs Vital Signs: Vital Signs - 24 hr 03/17/21 15:42 03/17/21 17:00 03/17/21 18:28 Temperature 97.4 F L Pulse Rate 94 78 95 Respiratory Rate 27 H 19 18 Blood Pressure 105/62 77/58 L 100/73 Pulse Oximetry 97 97 97 03/17/21 20:00 03/17/21 22:00 03/17/21 23:44 Temperature 97.6 F 97.6 F Pulse Rate 80 85 86 Respiratory Rate 20 20 Blood Pressure 93/60 L 106/57 L Pulse Oximetry 97 96 03/18/21 00:0
[2021-03-18 15:23] LABS: Magnesium 1.5 mg/dL (1.6-2.3); Potassium 3.3 mmol/L (3.4-5.0)
--- NOTE | 2021-03-18 15:28 | PM.CNCAR ---
Assessment and Plan Assessment and plan (1) CHF exacerbation: Code(s): I50.9 - Heart failure, unspecified Status: Acute Assessment and Plan: Acute on chronic heart failure systolic versus diastolic. History of preserved LV function. 2D echocardiogram to assess LV function, valve pathology pulmonary pressures. Recommendation to follow. Continue gentle diuresis given relative hypotension. Accurate input and output, daily weight, less than 2 g daily sodium intake. DVT prophylaxis. Hold metolazone. Digoxin held secondary to severe hypokalemia. (2) Hypokalemia: Code(s): E87.6 - Hypokalemia Status: Acute Assessment and Plan: Replete, keep potassium around 4.0. Hold digoxin for now given risks associated with advanced age, hypokalemia/electrolyte abnormalities. Telemetry. Follow magnesium. Stable initially. (3) Elevated troponin: Code(s): R79.89 - Other specified abnormal findings of blood chemistry Status: Acute Assessment and Plan: Flat troponin elevation no anginal symptoms. Most likely type 2 infarct secondary to decompensated heart failure. Check echo to assess LV function. No known prior history of CAD. Recommendations to follow after review. (4) Dementia: Code(s): F03.90 - Unspecified dementia without behavioral disturbance Status: Acute Assessment and Plan: Chronic. Patient's daughter looking into memory care options. (5) Tobacco dependence: Code(s): F17.200 - Nicotine dependence, unspecified, uncomplicated Status: Acute Assessment and Plan: Patient has cut down but continues to smoke previously 2 packs a day now 10 cigarettes daily. 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 Conservative management. Patient is not a good candidate for surgical intervention if indicated. History of Present Illness History of Present Illness Consult date/time: Date of service: 03/18/21 09:30 Cardiology consultation at the request of Belinda Elizabeth for our opinion regarding shortness of breath and CHF. Requesting physician: Belinda Elizabeth NP Consult reason: congestive heart failure Reason For Visit: CHF exacerbation/possible pneumonia Narrative: Patient is a pleasant 85-year-old female with a history of dementia, heart failure with preserved ejection fraction, chronic hypotension, history of PSVT on digoxin, tobacco abuse, coronary artery calcification, mitral stenosis and mitral regurgitation who presents presented emergency department by her daughter with worsening mental status, progressive shortness of breath, fatigue over the past week or to. They noted cough with frothy sputum, worsening lower extremity edema, fatigue, weakness, poor appetite, relative hypotension. I had a very lengthy discussion held with the patient's daughter on the phone who is a [id number] who cares for her and checks on her frequently and notes she had been generally compliant with medications but intentionally does not take her potassium as she has difficulty swallowing. Presentation patient was severely hypokalemic 2.6 for which she has been supplemented. Patient generally does not eat well home on her own and has been losing weight steadily over the past 2 years with a total of over 60 lb unintentional weight loss. They deny bleeding, recent falls, near-syncope syncope, palpitations, chest pain. No fevers are noted. No recent illnesses or sick contacts. Daughter notes that patient complained of feeling achy and weak in general prompting presentation after she contacted our office and her primary care physician. Chest x-ray revealed atelectasis versus pneumonia, BNP elevated 21,
[2021-03-18] MEDS: POTASSIUM CHLORIDE 20 MEQ TABLET 40 MEQ PO (16:10)
[2021-03-18] MEDS: MAGNESIUM SULF 1 GM/D5W 100 ML 1 GM/100 ML BAG IVPB (16:11)
[2021-03-18] MEDS: ENOXAPARIN 40 MG/0.4 ML SYRINGE SUB-Q (17:34)
[2021-03-18] MEDS: traZODone HCL 50 MG TABLET 200 MG PO (21:23)
[2021-03-18] MEDS: ACETAMINOPHEN 325 MG TABLET 650 MG PO (22:18)
[2021-03-19] VITALS (11 sets, daily range): BP systolic 85–102; BP diastolic 50–79; PULSE 85–120; RESP 12–20; TEMP 36.2–36.9; O2SAT 93–98
[2021-03-19 05:31] LABS: Basophils Absolute Auto 0.1 K/mm3 (0.0-0.1); Basophils Percent Auto 0.7 % (0.2-1.2); Eosinophils Absolute Auto 0.1 K/mm3 (0-0.3); Eosinophils Percent Auto 1.4 % (0-4.4); Hematocrit 37.1 % (37.0-47.0); Hemoglobin 11.6 g/dL (12.0-15.0); Immature Granulocyte Absolute 0.07 K/mm3 (0.00-0.031); Immature Granulocyte Percent A 0.8 % (0-0.5); Lymphocytes Absolute Auto 1.11 K/mm3 (0.9-3.2); Lymphocytes Percent Auto 12.9 % (18.3-44.2); Mean Corpuscular HGB Conc 31.3 g/dl (32-36); Mean Corpuscular Hemoglobin 28.6 pg (26-34); Mean Corpuscular Volume 91.6 fl (80-100); Mean Platelet Volume 9.7 fl (7.4-10.4); Monocytes Absolute Auto 0.8 K/mm3 (0.1-0.6); Monocytes Percent Auto 9.6 % (2.6-8.5); Neutrophils Absolute Auto 6.4 K/mm3 (1.3-6.7); Neutrophils Percent Auto 74.6 % (45.5-73.1); Platelet Count Result 275 k/mm3 (150-375); Red Blood Count 4.05 M/mm3 (4.2-5.4); Red Cell Distribution Width 18.1 % (11.5-14.5); White Blood Count 8.6 K/mm3 (4.5-10.0)
[2021-03-19 05:42] LABS: Albumin Level 3.5 g/dL (3.5-5.1); Anion Gap 10 mmol/L (8-16); Blood Urea Nitrogen 18 mg/dL (7-17); Calcium 8.7 mg/dL (8.4-10.2); Carbon Dioxide 29 mmol/L (22-30); Chloride 93 mmol/L (98-107); Estimated Glomerular Filt Rate 59; Glucose 105 mg/dL (65-110); Magnesium 1.8 mg/dL (1.6-2.3); Phosphorus 3.4 mg/dL (2.5-4.5); Potassium 3.4 mmol/L (3.4-5.0); Sodium 132 mmol/L (137-145)
[2021-03-19 06:02] LABS: Troponin I 0.339 ng/mL (0.000-0.034)
[2021-03-19] MEDS: busPIRone HCL 5 MG TABLET PO ×3 (09:28→17:08)
[2021-03-19] MEDS: POTASSIUM CHLORIDE 20 MEQ TABLET PO (09:28)
[2021-03-19] MEDS: POTASSIUM CHLORIDE 10 MEQ TABLET.ER PO ×2 (09:28→17:08)
[2021-03-19] MEDS: busPIRone HCL 2.5 MG TABLET PO ×3 (09:28→17:08)
[2021-03-19] MEDS: MAGNESIUM OXIDE 400 MG TABLET PO (09:29)
[2021-03-19] MEDS: PANTOPRAZOLE 40 MG TABLET PO (09:29)
[2021-03-19] MEDS: ATORVASTATIN 10 MG TABLET PO (09:29)
--- NOTE | 2021-03-19 11:15 | PCSTNOTE ---
Please refer to the Bedside Swallow Evaluation in the EMR. Please note, silent aspiration cannot be ruled out at bedside.
[2021-03-19 12:45] LABS: Troponin I 0.249 ng/mL (0.000-0.034)
[2021-03-19] MEDS: POTASSIUM CHLORIDE 20 MEQ PACKET (FOR LIQUID) PO (13:08)
--- NOTE | 2021-03-19 13:46 | PM.PNCARD ---
Progress Note: A&P Assessment and Plan (1) CHF exacerbation: Code(s): I50.9 - Heart failure, unspecified Status: Acute Assessment and Plan: Acute on chronic heart failure systolic and diastolic. History of preserved LV function EF 50-55% on echo yesterday EF has declined to 35-40%. Conservative medical management. Limited due to chronic hypotension unfortunately. Would not recommend further invasive workup or ischemic assessment. Patient is not reporting anginal symptoms. Unable to utilize beta-kaitlynn therapy due to history of intolerance to hypotension. Digoxin resumed, level 0.9 and electrolytes better repleted. Continue gentle diuresis given relative hypotension. Accurate input and output, daily weight, less than 2 g daily sodium intake. DVT prophylaxis. Hold metolazone. Repeat electrolytes and monitor closely. (2) Cardiomyopathy: Code(s): I42.9 - Cardiomyopathy, unspecified Status: Acute Assessment and Plan: New diagnosis, decline from last year EF 50 55% now 35-40%. No anginal symptoms, cannot exclude underlying CAD, however, would recommend conservative medical management this time. I do not believe pursuing invasive ischemic evaluation such as angiography is in this patient's best interest given her advanced age, relative frailty, dementia and noncompliance with medications intermittently. Will discuss with family. (3) Elevated troponin: Code(s): R79.89 - Other specified abnormal findings of blood chemistry Status: Acute Assessment and Plan: Flat troponin elevation no anginal symptoms. Most likely type 2 infarct secondary to decompensated heart failure. Check echo to assess LV function. No known prior history of CAD. Recommendations to follow after review. (4) Multifocal atrial tachycardia: Code(s): I47.1 - Supraventricular tachycardia Status: Acute Assessment and Plan: Chronic, stable. Digoxin resumed. Intolerant to AV grace blocking agents due to hypotension in the past. (5) Pulmonary hypertension: Code(s): I27.20 - Pulmonary hypertension, unspecified Status: Acute Assessment and Plan: Severe, RVSP 61 mm Hg. Ongoing tobacco abuse, COPD likely explanation. (6) Dementia: Code(s): F03.90 - Unspecified dementia without behavioral disturbance Status: Acute Assessment and Plan: Chronic. Patient's daughter looking into memory care options. (7) Tobacco dependence: Code(s): F17.200 - Nicotine dependence, unspecified, uncomplicated Status: Acute Assessment and Plan: Patient has cut down but continues to smoke previously 2 packs a day now 10 cigarettes daily. 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 Fairly stable compared to prior study. Conservative management. Patient is not a good candidate for surgical intervention. (9) Hypokalemia: Code(s): E87.6 - Hypokalemia Status: Acute Assessment and Plan: Slightly low this morning. Repleted, keep potassium around 4.0. Telemetry. Follow magnesium, 1.8 this morning. Subjective Date/time seen: Date of service: 03/19/21 13:46 Follow-up for CHF She states she feels better overall she appears slightly less confused. Less fatigue, denies shortness of breath. Feels her edema has improved. No nausea vomiting, chest pain or palpitations. Patient requesting to be taken to the bathroom as she needs to urinate. No fevers or chills or new issues overnight. Review of Systems Review of Systems: All systems reviewed & are unremarkable except as noted in HPI and below Constitutional: Constitutional: Reports as per HPI, Repor
--- NOTE | 2021-03-19 16:58 | PM.IMPN ---
Progress Note: A&P Assessment and Plan (1) Community acquired pneumonia: Code(s): J18.9 - Pneumonia, unspecified organism Status: Acute Assessment and Plan: Patient presents with cough and CXR showing bibasilar airspace disease. She has been started on azithromycin and Rocephin in the emergency room. BCx NGTD. Cough is persistent. Continue IV abx. Bedside swallow therapy performed. Spoke with Speech Therapy who recommended soft and bite sized which will change. (2) Congestive heart failure: Qualifiers: Heart failure chronicity: acute on chronic Heart failure type: combined systolic and diastolic Qualified Code(s): I50.43 - Acute on chronic combined systolic (congestive) and diastolic (congestive) heart failure Code(s): I50.9 - Heart failure, unspecified Status: Acute Assessment and Plan: Patient presentw with SOB and leg edema. CXR showing cardiomegaly with likely mild pulmonary edema and small pleural effusions. BNP 21K. Echo showing EF 35-40% with diastolic dysfunction Grade 2, severe pulm HTN and moderate MR and MS. IV Bumex frequency has been decreased. Continue with diuresis as she tolerates. Cardiology discussed findings with family with plans for medcial management as she can tolerate. Isaac arriola ordered. Discussed with dtr personally. (3) Elevated troponin: Code(s): R79.89 - Other specified abnormal findings of blood chemistry Status: Acute Assessment and Plan: Patient has chronically elevated troponins nad have peaked to 0.34. The patient is not complaining of any chest pain. No acute EKG changes. Most likely nonischemic myocardial injury related to congestive heart failure. Echo as above. Cardiology following and appreciate their input. Follow. (4) Hypotension: Qualifiers: Hypotension type: other hypotension type Qualified Code(s): I95.89 - Other hypotension Code(s): I95.9 - Hypotension, unspecified Status: Acute Assessment and Plan: Patient has chronically low BP by report. BP 77/43 on admisison but improved to the point that she is tolerating the Bumex IV most of the time. Had to hold Bumex today due to soft BP. Parameters have been placed on the Bumex. Continue to monitor BP closely (5) Hypokalemia: Code(s): E87.6 - Hypokalemia Status: Acute Assessment and Plan: Potassium level was low end of normal this morning related to diuretic therapy. Potassium was replaced again. Mag was 1.8 and this was also replaced. Follow (6) Dementia: Code(s): F03.90 - Unspecified dementia without behavioral disturbance Status: Acute Assessment and Plan: Stable. Will continue with home medications (7) Generalized anxiety disorder: Code(s): F41.1 - Generalized anxiety disorder Status: Acute Assessment and Plan: Mood stable. Continue with home medications. (8) Tobacco abuse: Code(s): Z72.0 - Tobacco use Status: Acute Assessment and Plan: Patient was educated about the benefits of smoking cessation. (9) DVT prophylaxis: Code(s): Z29.9 - Encounter for prophylactic measures, unspecified Status: Acute Assessment and Plan: Lovenox Subjective Date/time seen: 03/19/21 16:58 Interval history: 85yo female with CHF and dementia here for cough and leg edema. Cough is persistent but dry. She was seen by Speech earlier today. No CP or SOB. Slept well. Able to lie flat in bed. Exam Narrative: AF 98.4 101/70 94 12 98% Gen - NARD Chest - minimal basilar rhonchi, nml RR CV - RRR S1/S2. Tele showing 2 episodes of NSVT and frequent PACs Abd - Soft, NT/ND, Positive BS Ext - improving pitting pedal edema Psych - pleasant and cooperative Skin - Warm and dry Objective Data Vital Signs Vital Signs: Vital Signs - 24 hr 03/18/21 17:30 03/18/21 18:00 03/18/21 20:00 Temperature 97.7 F 98.2 F Pulse
[2021-03-19] MEDS: ENOXAPARIN 40 MG/0.4 ML SYRINGE SUB-Q (17:09)
--- NOTE | 2021-03-19 20:06 | PC.NURSE ---
This patient, Zelda Chin, was transferred to [ [id number] ] on 03/19/21 at 1945. Personal belongings sent with patient. Report given to [ NATHAN Bonilla. ]. Appropriate documentation sent with patient.
[2021-03-19] MEDS: traZODone HCL 50 MG TABLET 200 MG PO (20:26)
[2021-03-19] MEDS: DOCUSATE SODIUM 100 MG CAPSULE PO (20:26)
[2021-03-20] VITALS (13 sets, daily range): BP systolic 102–122; BP diastolic 43–81; PULSE 75–109; RESP 16–20; TEMP 35.9–36.6; O2SAT 93–97
[2021-03-20] MEDS: ACETAMINOPHEN 325 MG TABLET 650 MG PO ×3 (01:47→20:37)
[2021-03-20 06:04] LABS: Anion Gap 9 mmol/L (8-16); Blood Urea Nitrogen 17 mg/dL (7-17); Calcium 8.8 mg/dL (8.4-10.2); Carbon Dioxide 30 mmol/L (22-30); Chloride 95 mmol/L (98-107); Estimated Glomerular Filt Rate > 60; Glucose 110 mg/dL (65-110); Magnesium 1.8 mg/dL (1.6-2.3); Potassium 3.7 mmol/L (3.4-5.0); Sodium 134 mmol/L (137-145)
[2021-03-20] MEDS: BUMETANIDE 1 MG TABLET PO ×2 (09:09→17:40)
[2021-03-20] MEDS: MAGNESIUM OXIDE 400 MG TABLET PO (09:09)
[2021-03-20] MEDS: DOCUSATE SODIUM 100 MG CAPSULE PO ×2 (09:09→20:38)
[2021-03-20] MEDS: busPIRone HCL 2.5 MG TABLET PO ×3 (09:09→16:12)
[2021-03-20] MEDS: POTASSIUM CHLORIDE 10 MEQ TABLET.ER PO ×2 (09:09→16:12)
[2021-03-20] MEDS: ATORVASTATIN 10 MG TABLET PO (09:09)
[2021-03-20] MEDS: PANTOPRAZOLE 40 MG TABLET PO (09:09)
[2021-03-20] MEDS: busPIRone HCL 5 MG TABLET PO ×3 (09:09→16:12)
[2021-03-20] MEDS: DIGOXIN TAB 125 MCG TABLET PO (09:10)
--- NOTE | 2021-03-20 09:13 | PM.PNCARD ---
Progress Note: A&P Assessment and Plan (1) CHF exacerbation: Code(s): I50.9 - Heart failure, unspecified <JASON Scanlon - Last Filed: 03/20/21 09:45> Status: Acute <JASON Scanlon - Last Filed: 03/20/21 09:45> Assessment and Plan: Acute on chronic heart failure systolic and diastolic. History of preserved LV function EF 50-55% on echo yesterday EF has declined to 35-40%. Conservative medical management. Limited due to chronic hypotension unfortunately. Would not recommend further invasive workup or ischemic assessment. Patient is not reporting anginal symptoms. Unable to utilize beta-kaitlynn therapy due to history of intolerance to hypotension. Digoxin resumed, level 0.9 and electrolytes better repleted. Continue gentle diuresis given relative hypotension. Accurate input and output, daily weight, less than 2 g daily sodium intake. DVT prophylaxis. Hold metolazone. Repeat electrolytes and monitor closely. <JASON Scanlon - Last Filed: 03/20/21 09:45> (2) Cardiomyopathy: Code(s): I42.9 - Cardiomyopathy, unspecified <JASON Scanlon - Last Filed: 03/20/21 09:45> Status: Acute <JASON Scanlon - Last Filed: 03/20/21 09:45> Assessment and Plan: New diagnosis, decline from last year EF 50 55% now 35-40%. No anginal symptoms, cannot exclude underlying CAD, however, would recommend conservative medical management this time. Family in agreement not to pursue invasive ischemic evaluation such as angiography given her advanced age, relative frailty, dementia and noncompliance with medications intermittently. <JASON Scanlon - Last Filed: 03/20/21 09:45> (3) Elevated troponin: Code(s): R79.89 - Other specified abnormal findings of blood chemistry <JASON Scanlon - Last Filed: 03/20/21 09:45> Status: Acute <JASON Scanlon - Last Filed: 03/20/21 09:45> Assessment and Plan: Flat troponin elevation no anginal symptoms. Most likely type 2 infarct secondary to decompensated heart failure. Echo showed decreased LV function - recommendations as above. <JASON Scanlon - Last Filed: 03/20/21 09:45> (4) Multifocal atrial tachycardia: Code(s): I47.1 - Supraventricular tachycardia <SALTY ScanlonC - Last Filed: 03/20/21 09:45> Status: Acute <Sondra Luevano APN-C - Last Filed: 03/20/21 09:45> Assessment and Plan: Chronic, stable. Digoxin resumed. Intolerant to AV grace blocking agents due to hypotension in the past. <JASON Scanlon - Last Filed: 03/20/21 09:45> (5) Pulmonary hypertension: Code(s): I27.20 - Pulmonary hypertension, unspecified <Sondra Luevano APN-C - Last Filed: 03/20/21 09:45> Status: Acute <SALTY ScanlonC - Last Filed: 03/20/21 09:45> Assessment and Plan: Severe, RVSP 61 mm Hg. Ongoing tobacco abuse, COPD likely explanation. <JASON Scanlon - Last Filed: 03/20/21 09:45> (6) Dementia: Code(s): F03.90 - Unspecified dementia without behavioral disturbance <SALTY ScanlonC - Last Filed: 03/20/21 09:45> Status: Acute <JASON Scanlon - Last Filed: 03/20/21 09:45> Assessment and Plan: Chronic. Patient's daughter looking into memory care options. <Sondra Luevano APN-C - Last Filed: 03/20/21 09:45> (7) Tobacco dependence: Code(s): F17.200 - Nicotine dependence, unspecified, uncomplicated <Sondra Luevano APN-C - Last Filed: 03/20/21 09:45> Status: Acute <Sondra Luevano APN-C - Last Filed: 03/20/21 09:45> Assessment and Plan: Patient has cut down but continues to smoke previously 2 packs a day now 10 cigarettes daily. <Sondra Luevano APN-C - Last Filed: 03/20/21 09:45> (8) Mitral stenosis with insufficiency: Qualifiers: Cardiac valve disease etiology: rheumat
--- NOTE | 2021-03-20 11:44 | ECG_ITS ---
Measurements Intervals Nichols Rate: 101 P: -62 OR: 148 QRS: -44 QRSD: 101 T: 100 QT: 346 QTc: 449 Interpretive Statements SINUS OR ECTOPIC ATRIAL TACHYCARDIA ATRIAL PREMATURE COMPLEX LEFT AXIS DEVIATION LEFT VENTRICULAR HYPERTROPHY AND ST-T CHANGE BORDERLINE ST-T WAVE ABNORMALITY- LATERAL LEADS ABNORMAL ECG Electronically Signed On 03-20-2021 12:15:39 CDT by Bi Rosen D.O.
[2021-03-20] MEDS: polyethylene glycoL 3350 17 GM POWD.PACK PO (12:34)
[2021-03-20] MEDS: MECLIZINE HCL 12.5 MG TABLET PO (12:34)
[2021-03-20 12:38] LABS: Troponin I 0.196 ng/mL (0.000-0.034)
--- NOTE | 2021-03-20 12:38 | PCDIET ---
Nutrition Follow-Up Complete: Involuntary weight loss likely related to dementia, CHF as evidenced by 10.5% weight loss x 1 year without trying. Patient to consume 50% of meals/supplements or greater. Goal: approaching goal; continue goal Pt current nutrition is level 6 soft and bite sized with Ensure compact BID Nutrition recommendation: Agree with speech and regular diet level 7 Last recorded weight is 54.5 kg, up from assessed wt of 52.5kg Bowel Motility: No BM noted since admit (miralax, mg oxide, colace all being provided) Labs Reviewed:Na 134, Hgb 11.6, Troponin .249 Meds Noted:KCL, zithromax, rocephin, lovenox and above motility agents Additional Notes: Pt has been upgraded to a regular diet, level 7 per speech. PO intake is 44% average with most meals 50-75% intake. Wt is trending up. We will follow for continued improved intake and bowel motility every five days.
--- NOTE | 2021-03-20 16:51 | PM.IMPN ---
Progress Note: A&P Assessment and Plan (1) Community acquired pneumonia: Code(s): J18.9 - Pneumonia, unspecified organism Status: Acute Assessment and Plan: Patient presents with cough and CXR showing bibasilar airspace disease. She has been started on azithromycin and Rocephin in the emergency room. BCx NGTD. Cough is still present but seems less frequent. Continue IV abx. Bedside swallow therapy performed. Spoke with Speech Therapy who recommended soft and bite sized which was added. (2) Congestive heart failure: Qualifiers: Heart failure chronicity: acute on chronic Heart failure type: combined systolic and diastolic Qualified Code(s): I50.43 - Acute on chronic combined systolic (congestive) and diastolic (congestive) heart failure Code(s): I50.9 - Heart failure, unspecified Status: Acute Assessment and Plan: Patient presented with SOB and leg edema. CXR showing cardiomegaly with likely mild pulmonary edema and small pleural effusions. BNP 21K. Echo showing EF 35-40% with diastolic dysfunction Grade 2, severe pulm HTN and moderate MR and MS. She was started on IV Bumex with good diuresis and clinical improvement. Cardiology discussed findings with family with plans for medical management as she can tolerate. Continue Isaac hose. Changed to oral Bumex now. (3) Elevated troponin: Code(s): R79.89 - Other specified abnormal findings of blood chemistry Status: Acute Assessment and Plan: Patient has chronically elevated troponin and have peaked to 0.34. The patient is complaining of any chest pain but no acute EKG changes on repeat EKG. Most likely nonischemic myocardial injury related to congestive heart failure. Echo as above. Cardiology following and they were informed of the patient's complaint of chest pain. Continue medical management as she toelrates. (4) Hypotension: Qualifiers: Hypotension type: other hypotension type Qualified Code(s): I95.89 - Other hypotension Code(s): I95.9 - Hypotension, unspecified Status: Acute Assessment and Plan: Patient has chronically low BP by report. BP 77/43 on admission but improved to the point that she was tolerating the Bumex IV most of the time. Bumex changed to oral. Parameters placed on the Bumex. Continue to monitor BP closely (5) Hypokalemia: Code(s): E87.6 - Hypokalemia Status: Acute Assessment and Plan: Potassium level was low end of normal this morning related to diuretic therapy. Potassium stable. Follow (6) Dementia: Code(s): F03.90 - Unspecified dementia without behavioral disturbance Status: Acute Assessment and Plan: Stable. Will continue with home medications (7) Generalized anxiety disorder: Code(s): F41.1 - Generalized anxiety disorder Status: Acute Assessment and Plan: Mood stable. Continue with home medications. (8) Tobacco abuse: Code(s): Z72.0 - Tobacco use Status: Acute Assessment and Plan: Patient was educated about the benefits of smoking cessation. (9) DVT prophylaxis: Code(s): Z29.9 - Encounter for prophylactic measures, unspecified Status: Acute Assessment and Plan: Lovenox Subjective Date/time seen: 03/20/21 16:51 Interval history: 85yo female with CHF and dementia here for cough and leg edema. Had CP earlier today that lasted about 1 hour. Elizabeth like pressure but CP worse with cough. RN felt patient more anxious. She is confused so hx unreliable. She denies n/v. She was also complaining of dizziness to the RN but denied dizziness. Orthostatic performed and were normal. RN stated that the pateint felt like the room was spinning at that time. Patient does admit to feeling anxious because she wants to smoke. Discussed with family. All questions answered. Exam Narrative: AF 96.6 115/76 89 16 94% Gen - NARD lying almost
[2021-03-20 17:02] LABS: Add Urine Microscopic? YES; Appearance Urine Cloudy (Clear); Bacteria Urine Trace /hpf; Bilirubin Urine Negative (Negative); Blood Urine 1+ (Negative); Color Urine Yellow (Yellow); Glucose Urine UA Negative (Negative); Ketones Urine Negative (Negative); Leukocyte Esterase Ur Trace LEU/UL (Negative); Mucus Urine Rare /lpf; Nitrate Urine Negative (Negative); Protein Urine Negative (Negative); Specific Grav Ur 1.006 (1.001-1.035); Squamous Epithelial Cell Urine Few /hpf (Few); Urobilinogen Urine Negative mg/dL (<2.0)
[2021-03-20] MEDS: ENOXAPARIN 40 MG/0.4 ML SYRINGE SUB-Q (17:40)
[2021-03-20] MEDS: traZODone HCL 50 MG TABLET 200 MG PO (20:36)
[2021-03-21] VITALS: PULSE 103
[2021-03-21 04:00] VITALS: PULSE 106
[2021-03-21 06:00] VITALS: BP 98/68; PULSE 96; RESP 20; TEMP 36.8; O2SAT 96
[2021-03-21 08:00] VITALS: PULSE 100
[2021-03-21 09:31] VITALS: PULSE 96
[2021-03-21] MEDS: DIGOXIN TAB 125 MCG TABLET PO (09:31)
[2021-03-21] MEDS: BUMETANIDE 1 MG TABLET PO (09:31)
[2021-03-21] MEDS: busPIRone HCL 2.5 MG TABLET PO (09:31)
[2021-03-21] MEDS: busPIRone HCL 5 MG TABLET PO (09:31)
[2021-03-21] MEDS: POTASSIUM CHLORIDE 10 MEQ TABLET.ER PO (09:31)
[2021-03-21] MEDS: MECLIZINE HCL 12.5 MG TABLET PO (09:31)
[2021-03-21] MEDS: ATORVASTATIN 10 MG TABLET PO (09:31)
[2021-03-21] MEDS: MAGNESIUM OXIDE 400 MG TABLET PO (09:32)
[2021-03-21] MEDS: DOCUSATE SODIUM 100 MG CAPSULE PO (09:32)
[2021-03-21] MEDS: PANTOPRAZOLE 40 MG TABLET PO (09:32)
--- NOTE | 2021-03-21 09:59 | PM.DS ---
DS: Admitting Diagnosis Admitting Diagnosis Cough and cold symptoms DS: Discharge Diagnosis Discharge Diagnosis (1) Community acquired pneumonia: Qualifiers: Laterality: right Lung location: lower lobe of lung Qualified Code(s): J18.9 - Pneumonia, unspecified organism Code(s): J18.9 - Pneumonia, unspecified organism Status: Acute Assessment and Plan: Patient presents with cough and CXR showing bibasilar airspace disease. She was started on azithromycin and Rocephin in the emergency room. BCx NGTD. Cough is still present but improved overall and is less frequent (today she states the character of the cough has changed but can not tell me how). Bedside swallow therapy performed. Spoke with Speech Therapy who recommended soft and bite sized which was added. CXR repeated which showed persistent findings despite improvement in the CHF symptoms. (2) Congestive heart failure: Qualifiers: Heart failure chronicity: acute on chronic Heart failure type: combined systolic and diastolic Qualified Code(s): I50.43 - Acute on chronic combined systolic (congestive) and diastolic (congestive) heart failure Code(s): I50.9 - Heart failure, unspecified Status: Acute Assessment and Plan: Patient presented with SOB and leg edema. CXR showing cardiomegaly with likely mild pulmonary edema and small pleural effusions. BNP 21K. Echo showing EF 35-40% with diastolic dysfunction Grade 2, severe pulm HTN and moderate MR and MS. Thompson she has acute on chronic systolic and diastolic CHF with probable right sided failure. She was started on IV Bumex with good diuresis and clinical improvement. Cardiology discussed findings with family with plans for medical management as she can tolerate. Isaac arriola added. She was changed to oral Bumex 1mg BID (home dose was 2mg daily). No COreg or ACEI due to transient HoTN. (3) Elevated troponin: Code(s): R79.89 - Other specified abnormal findings of blood chemistry Status: Acute Assessment and Plan: Patient has chronically elevated troponin and have peaked to 0.34. The patient was complaining of atypical chest pain but no acute EKG changes on repeat EKG. Most likely nonischemic myocardial injury related to congestive heart failure. Echo as above. Cardiology following and they have spoken with family about goals of care. Continue medical management as she tolerates. (4) Hypotension: Qualifiers: Hypotension type: other hypotension type Qualified Code(s): I95.89 - Other hypotension Code(s): I95.9 - Hypotension, unspecified Status: Acute Assessment and Plan: Patient has chronically low BP by report. BP 77/43 on admission but improved to the point that she was tolerating the Bumex IV most of the time. Bumex changed to oral. Parameters placed on the Bumex. Difficult to add further therapy at this time. Patient's SBP was 102 sitting but dropped to 86 standing. Patient not symptomatic. Discussed with Cardiology. Plan to add Midodrine at discharge. Still okay for discharge (5) Hypokalemia: Code(s): E87.6 - Hypokalemia Status: Acute Assessment and Plan: Potassium level was low at times requiring replacement (6) Dementia: Code(s): F03.90 - Unspecified dementia without behavioral disturbance Status: Acute Assessment and Plan: Stable. We continued with home medications (7) Generalized anxiety disorder: Code(s): F41.1 - Generalized anxiety disorder Status: Acute Assessment and Plan: Mood stable. We continued with home medications. Lenny was complaining of dizziness but dtr later stated that the patient complains of dizziness when she does not want to do something. Will have Meclizine available as needed. (8) Tobacco abuse: Code(s): Z72.0 - Tobacco use Status: Acute Assessment and Plan: Patient was educated about the be
[2021-03-21 10:51] VITALS: BP 112/86; PULSE 79; RESP 18; TEMP 36.2; O2SAT 96
[2021-03-21 12:54] LABS: Glucose Point of Care 94 mg/dl (65-105)
== END 2021-03-21 11:30 | DRG 193 ==
LOC: ANHED 13:58 → ANHIMU 17:42 → ANH2MED 03-19 19:47
PROVIDERS: Emergency Medicine; Nurse Practitioner; Admitting Provider Internal Medicine; Emergency Provider Emergency Medicine; PCP Family Medicine; Visit Provider Internal Medicine
DX: J18.9 Pneumonia, unspecified organism (principal); I50.43 Acute on chronic combined systolic (congestive) and diastolic (congestive) heart failure; I42.9 Cardiomyopathy, unspecified; I47.1 Supraventricular tachycardia; I27.20 Pulmonary hypertension, unspecified; I05.2 Rheumatic mitral stenosis with insufficiency; R77.8 Other specified abnormalities of plasma proteins; I95.9 Hypotension, unspecified; F03.90 Unspecified dementia, unspecified severity, without behavioral disturbance, psychotic disturbance, mood disturbance, and anxiety; F41.1 Generalized anxiety disorder; F17.210 Nicotine dependence, cigarettes, uncomplicated; E87.6 Hypokalemia; Z79.899 Other long term (current) drug therapy; Z98.49 Cataract extraction status, unspecified eye
CPT/HCPCS: 36415; 71045; 71046; 74019; 80048; 80053; 80069; 80162; 81001; 82948; 83605; 83735; 83880; 84132; 84443; 84484; 85025; 85610; 85730; 87040; 92610; 93005; 93306; 97161; 97165; 97530; 97535; 99285; A9270; J0456; J0696; J1650; J3475; J3480

== ENCOUNTER 2021-03-21 12:54 | Outpatient (RCR) | payer SELFPAY | END 2021-03-21 23:59 | disposition home or self-care (01) | LOC: ANHAUDIO 12:54 | PROVIDERS: PCP Family Medicine; Visit Provider Family Medicine | DX: Z46.1 Encounter for fitting and adjustment of hearing aid (principal) | CPT/HCPCS: 99199; V5014 ==

== ENCOUNTER 2021-04-23 11:48 | Inpatient (IN) | payer MEDICARE, SELFPAY ==
[2021-04-23] VITALS (23 sets, daily range): BP systolic 84–128; BP diastolic 61–104; PULSE 68–111; RESP 0–32; TEMP 36.4–37.2; O2SAT 86–100
--- NOTE | ~2021-04-23 | CT_ITS ---
EXAMINATION:CT diagnostic chest wo con DATE: 04/23/2021 15:16 INDICATION: Shortness of breath. TECHNIQUE: Computed tomography (CT) of the chest was performed without intravenous contrast. Automate d exposure control and iterative reconstruction technique were employed. The dose-length product (DLP ) was 210.61 mGy-cm. COMPARISON: CT abdomen and pelvis 08/15/2016 FINDINGS: There is mild emphysema. There is a 4.2 x 1.7 cm mass in left lung upper lobe. There is dep endent atelectasis bilaterally. There is smooth septal thickening in the lungs, consistent with pulmo nary edema. There is a cluster of nodules measuring up to 17 mm in right middle lobe. There are small pleural effusions, right worse than left. There are dense calcifications in the proximal subclavian arteries, which suggests either severe stenosis or occlusion. Cardiomegaly is noted. There are reynolds ry artery calcifications. No pericardial effusion. There is a small sliding hiatal hernia. There is a 12 mm cyst in right kidney. There is a 5.4 cm mass in right adrenal gland measuring low-attenuation indication tingling calcifications, stable from 08/15/2016, consistent with an adenoma. There is sever e thoracic and lumbar spondylosis. There is a chronic burst fracture of T12. IMPRESSION: 1. Left lung upper lobe mass and right middle lobe nodules, consistent with infection and/or malignan cy. 2. Mild pulmonary edema. 3. Small pleural effusions. 4. Mild emphysema. Reviewed, dictated and finalized at location A. IMPRESSION: 1. Left lung upper lobe mass and right middle lobe nodules, consistent with inf ection and/or malignancy. 2. Mild pulmonary edema. 3. Small pleural effusions. 4. Mild emphysema.
--- NOTE | ~2021-04-23 | XR_ITS ---
EXAMINATION: XR chest 1V portable DATE: 04/23/2021 12:24 INDICATION: Chest pain. TECHNIQUE: A single frontal view of the chest was obtained. COMPARISON: Chest single view 03/20/2021, CT abdomen and pelvis 08/15/2016 FINDINGS: There is mild atelectasis in left perihilar region. There is a diffuse interstitial pattern , consistent with mild pulmonary edema. There are airspace opacities in the lower lung zones, right w orse than left. There is a small right pleural effusion. No pneumothorax. Cardiomegaly is noted. Calc ified hilar and mediastinal lymph nodes are consistent with old granulomatous disease. IMPRESSION: 1. Mild pulmonary edema. 2. Worsened airspace opacities in the lower lung zones, right worse than left, consistent with atelec tasis or less likely pneumonia. 3. Worsened small right pleural effusion. 4. Cardiomegaly. Reviewed, dictated and finalized at location A. IMPRESSION: 1. Mild pulmonary edema. 2. Worsened airspace opacities in the lower lung zones, right worse than left, consistent with atelectasis or less likely pneumonia. 3. Worsened small right pleural effusion. 4. Cardiomegaly.
--- NOTE | 2021-04-23 12:10 | ECG_ITS ---
Measurements Intervals [place] Rate: 107 P: 33 MD: 177 QRS: -35 QRSD: 108 T: 107 QT: 324 QTc: 433 Interpretive Statements SINUS TACHYCARDIA LEFT AXIS DEVIATION LEFT VENTRICULAR HYPERTROPHY AND ST-T CHANGE BORDERLINE R WAVE PROGRESSION, ANTERIOR LEADS ST-T WAVE ABNORMALITY IN HIGH LATERAL LEADS- CONSIDER ISCHEMIA BASELINE ARTIFACT- I, II, III, AVR, AVF, V1-V6 ABNORMAL ECG Electronically Signed On 04-24-2021 11:18:08 CDT by Bi Rosen D.O.
--- NOTE | 2021-04-23 12:22 | ED.CHESTPAIN ---
HPI - Chest Pain General Chief Complaint: Chest Pain Stated Complaint: CP Time Seen by Provider: 04/23/21 11:51 History of Present Illness HPI narrative: Patient is 85 years old white female came from memory care unit with chest pain that started early this morning. 10 out of 10. On arrival to the emergency room patient is asymptomatic. Patient's daughter at the bedside who is telling me that patient was admitted to our hospital 3 weeks ago for the same problem. Currently patient denying any fever, chills, nausea, vomiting, chest pain, shortness of breath. Patient does not take oxygen at home currently on 2 L because of hypoxia prior to arrival. Related Data Home Medications Medication Instructions Recorded Confirmed atorvastatin 10 mg tablet 10 mg PO DAILY 02/25/21 04/23/21 digoxin 125 mcg (0.125 mg) tablet 125 mcg PO DAILY 02/25/21 04/23/21 potassium chloride 10 mEq 10 meq PO BID tablet 02/25/21 04/23/21 tablet,extended release trazodone 100 mg tablet 200 mg PO HS tablet 02/25/21 04/23/21 acetaminophen [Tylenol Arthritis 650 mg PO Q4-6H PRN 03/17/21 04/23/21 Pain] buspirone 7.5 mg PO TID 03/17/21 04/23/21 metolazone 2.5 mg PO DAILY 03/18/21 03/18/21 bumetanide 1 mg PO BID 04/23/21 04/23/21 Allergies Allergy/AdvReac Type Severity Reaction Status Date / Time epinephrine Allergy Severe Dyspnea / Verified 04/23/21 12:08 SOB Review of Systems Review of Systems: CONSTITUTIONAL: Denies fever, chills, or sweats. EYES: Denies visual changes, redness, or discharge. ENT: Denies rhinorrhea, congestion, sore throat, or otalgia. CARDIOVASCULAR: Denies chest pain, palpitations, or edema. RESPIRATORY: Denies cough or dyspnea. GASTROINTESTINAL: Denies abdominal pain, nausea, vomiting, or diarrhea. GENITOURINARY: Denies dysuria or hematuria. SKIN: Denies rash or itching. MUSCULOSKELETAL: Denies back pain, joint pain, or myalgia. NEUROLOGIC: Denies headache, numbness, or weakness. PSYCHIATRIC: Denies anxiety or depression. 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 Congenital hammertoe of right foot Dementia Gastroesophageal reflux Generalized anxiety disorder Mitral stenosis with insufficiency Multifocal atrial tachycardia Osteoarthritis Severe pulmonary hypertension Estimated pulmonary arterial systolic pressure was 61 mmHg on echocardiogram in February 2021. Tobacco dependence Surgical History Surgical History History of arthroplasty of right knee History of bunionectomy History of cataract extraction History of cholecystectomy History of lumbar fusion Family History Family History Father Hypertension Family history of kidney disease Mother Family history of cardiovascular disease Social History Social History (Updated 04/23/21 @ 14:18 by Pao Camilo PA-C) Social History: The patient is and is now living in a memory care unit. She is retired from doing office work. She smokes about a pack of cigarettes per day. She denies alcohol and illicit substance abuse. She designates her daughter, Shilpa Miller, as her surrogate decision maker and she wishes to be a full code Smoking packs per day: 0.5 Smoking cigarettes per day: 10.0 Years smoked: 25 Smoking pack-years: 12.50 Smoking status: Current every day smoker Tobacco type: cigarettes Alcohol intake: never Substance use: never Substance use type: does not use Gender identity (if verbalized by the patient): Female Sexual Orientation (if Verbalized by the Patient): Straight or Heterosexual Spiritual care concerns: No Exam Narrative: General appearanc
--- NOTE | 2021-04-23 12:28 | PC.NURSE ---
pt oxygen saturation 89, placed 2 liters nasal cannula pt at 100 oxygen saturation
[2021-04-23 13:05] LABS: INR 0.9
[2021-04-23 13:06] LABS: Basophils Absolute Auto 0.1 K/mm3 (0.0-0.1); Basophils Percent Auto 0.5 % (0.2-1.2); Eosinophils Absolute Auto 0.1 K/mm3 (0-0.3); Eosinophils Percent Auto 0.9 % (0-4.4); Hematocrit 37.8 % (37.0-47.0); Hemoglobin 11.7 g/dL (12.0-15.0); Immature Granulocyte Percent A 0.9 % (0-0.5); Immature Platelet Fraction Pct 4.2 % (0.9-11.2); Lymphocytes Absolute Auto 0.77 K/mm3 (0.9-3.2); Lymphocytes Percent Auto 6.6 % (18.3-44.2); Mean Corpuscular Hemoglobin 29.3 pg (26-34); Mean Corpuscular Volume 94.7 fl (80-100); Mean Platelet Volume 9.9 fl (7.4-10.4); Monocytes Absolute Auto 0.9 K/mm3 (0.1-0.6); Monocytes Percent Auto 7.7 % (2.6-8.5); Neutrophils Absolute Auto 9.7 K/mm3 (1.3-6.7); Neutrophils Percent Auto 83.4 % (45.5-73.1); Partial Thromboplastin Time 26.2 SECONDS (22.3-36.8); Platelet Count Result 325 k/mm3 (150-375); Red Blood Count 3.99 M/mm3 (4.2-5.4); Red Cell Distribution Width 16.1 % (11.5-14.5); White Blood Count 11.6 K/mm3 (4.5-10.0)
[2021-04-23 13:13] LABS: Magnesium 1.9 mg/dL (1.6-2.3)
[2021-04-23 13:16] LABS: Alanine Aminotransferase 27 U/L (4-35); Albumin Level 4.1 g/dL (3.5-5.1); Alkaline Phosphatase 74 U/L (38-126); Anion Gap 6 mmol/L (8-16); Aspartate Amino Transferase 45 U/L (14-36); Bilirubin,Total 0.6 mg/dL (0.2-1.3); Blood Urea Nitrogen 49 mg/dL (7-17); Calcium 9.3 mg/dL (8.4-10.2); Carbon Dioxide 32 mmol/L (22-30); Chloride 98 mmol/L (98-107); Estimated Glomerular Filt Rate 53; Glucose 129 mg/dL (65-110); Sodium 136 mmol/L (137-145)
[2021-04-23 13:19] LABS: Digoxin 2.1 ng/mL (0.8-2.0)
[2021-04-23 13:23] LABS: NT Pro B Type Natriuretic Pept > 35000 pg/mL (5-100); Potassium 5.6 mmol/L (3.4-5.0); Troponin I 0.302 ng/mL (0.000-0.034)
--- NOTE | 2021-04-23 13:31 | PC.NURSE ---
returned call to [facility] for update on pt to [place] @[phone]
[2021-04-23 14:43] LABS: Platelet Estimate Adequate (Adequate)
[2021-04-23 14:45] LABS: Hypochromasia 1+ (NORMAL)
--- NOTE | 2021-04-23 15:00 | PM.IMHP ---
H&P: HPI History of Present Illness Date/Time: 04/23/21 15:00 Chief Complaint: Chest pain. Narrative: This is a very pleasant 85-year-old female with mixed systolic and diastolic congestive heart failure, moderate mitral valve stenosis with insufficiency, GERD, dementia, and anxiety who presented to the emergency department earlier today with complaints of chest pain. She has pretty significant short-term memory loss and at the time my evaluation she does not recall why she was brought to the hospital today and did not remember having chest pain earlier this morning. According to the triage note the patient had complained earlier today of 10/10 chest pain though she was having no symptoms on arrival to the emergency department and she has no symptoms at the time my evaluation. It is noted that she was recently admitted to the hospital at the beginning of March at which time she had evidence of congestive heart failure exacerbation as well as a troponin elevation which was felt to be most likely a type 2 infarct due to decompensated heart failure. Echocardiogram at that time showed an ejection fraction of 35 to 40% with diastolic dysfunction grade 2 as well as severe pulmonary hypertension and moderate MR in MS. She was unable to tolerate the addition of a beta-kaitlynn or NATALIO-inhibitor due to transient hypotension but did diurese well. Review of Systems Review of Systems: Twelve systems were reviewed. She denies headache, sinus congestion, rhinorrhea, otalgia, and odynophagia. No syncope or near syncope. She has no chest pain or pleuritic pain at this time. She denies palpitations. No cough or shortness of breath. She denies nausea and vomiting. She has not had epigastric or abdominal discomfort. She does have GERD for which she takes Nexium and she has not noticed a change in those symptoms. No blood in the stool. She has not noticed any significant edema. Denies recent falls however she does have a contusion to the right anterior valentin which she reports hitting on her walker. Except as documented, all other systems were reviewed and are negative. 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 Congenital hammertoe of right foot Dementia Gastroesophageal reflux Generalized anxiety disorder Mitral stenosis with insufficiency Multifocal atrial tachycardia Osteoarthritis Severe pulmonary hypertension Estimated pulmonary arterial systolic pressure was 61 mmHg on echocardiogram in February 2021. Tobacco dependence Surgical History Surgical History History of arthroplasty of right knee History of bunionectomy History of cataract extraction History of cholecystectomy History of lumbar fusion Family History Family History Father Hypertension Family history of kidney disease Mother Family history of cardiovascular disease Social History Social History (Updated 04/23/21 @ 21:40 by Pao Camilo PA-C) Social History: The patient is and is now living in a memory care facility. She is retired from doing office work. She quit smoking when she moved to the memory care facility. She denies alcohol and illicit substance abuse. She designates her daughter, Shilpa Miller, as her surrogate decision maker and she wishes to be a full code Smoking packs per day: 1 Smoking cigarettes per day: 20.0 Years smoked: 65 Smoking pack-years: 65.00 Smoking status: Former smoker Meds Home Medications and Allergies Home Medications Medication Instructions Recorded Confirmed Type esomeprazole magnesium 20 mg 20 mg PO DAILY #90 cap 06/06/19 04/23/21 Rx capsule,delayed relea
[2021-04-23] MEDS: FUROSEMIDE INJ 40 MG/4 ML VIAL 20 MG IV PUSH (16:00)
[2021-04-23] MEDS: ENOXAPARIN 60 MG/0.6 ML SYRINGE 55 MG SUB-Q (16:01)
[2021-04-23 16:52] LABS: Add Urine Microscopic? NO; Appearance Urine Clear (Clear); Bilirubin Urine Negative (Negative); Blood Urine Negative (Negative); Color Urine Straw (Yellow); Glucose Urine UA Negative (Negative); Ketones Urine Negative (Negative); Leukocyte Esterase Ur Negative LEU/UL (Negative); Nitrate Urine Negative (Negative); Protein Urine Negative (Negative); Urobilinogen Urine Negative mg/dL (<2.0)
--- NOTE | 2021-04-23 18:52 | ADMGEN ---
This patient, Zelda Chin, was admitted to IMU Room 206-02 on 04/23/21 at 1753. Patient/family oriented to hospital policies and general routines including ID bracelet, bed and alarms, visiting hours, pain management, procedures, bathroom and other care routines, personal items, smoking policy, room service/diet, and visiting hours. Information on how to activate the Rapid Response Team has been discussed. Patient/Family are encouraged to report perceived risks to care and to ask questions if they do not understand what they are told or what they should do.
[2021-04-23 22:07] LABS: Digoxin 1.8 ng/mL (0.8-2.0)
[2021-04-23 22:14] LABS: Anion Gap 7 mmol/L (8-16); Blood Urea Nitrogen 45 mg/dL (7-17); Calcium 8.8 mg/dL (8.4-10.2); Carbon Dioxide 31 mmol/L (22-30); Chloride 97 mmol/L (98-107); Estimated Glomerular Filt Rate 53; Glucose 90 mg/dL (65-110); Potassium 4.6 mmol/L (3.4-5.0); Sodium 135 mmol/L (137-145)
[2021-04-23] MEDS: traZODone HCL 50 MG TABLET 200 MG PO (22:46)
[2021-04-24] VITALS (18 sets, daily range): BP systolic 87–115; BP diastolic 51–73; PULSE 74–87; RESP 14–21; TEMP 35.7–37.1; O2SAT 95–100
[2021-04-24] MEDS: ACETAMINOPHEN 325 MG TABLET 650 MG PO ×2 (03:57→15:32)
[2021-04-24 05:20] LABS: Alanine Aminotransferase 26 U/L (4-35); Albumin Level 3.3 g/dL (3.5-5.1); Alkaline Phosphatase 62 U/L (38-126); Anion Gap 5 mmol/L (8-16); Aspartate Amino Transferase 66 U/L (14-36); Bilirubin,Total 0.4 mg/dL (0.2-1.3); Blood Urea Nitrogen 45 mg/dL (7-17); Calcium 8.5 mg/dL (8.4-10.2); Carbon Dioxide 33 mmol/L (22-30); Chloride 97 mmol/L (98-107); Estimated Glomerular Filt Rate 59; Glucose 88 mg/dL (65-110); Magnesium 1.8 mg/dL (1.6-2.3); Potassium 4.3 mmol/L (3.4-5.0); Sodium 135 mmol/L (137-145)
[2021-04-24 05:52] LABS: Digoxin 1.7 ng/mL (0.8-2.0)
[2021-04-24] MEDS: busPIRone HCL 5 MG TABLET PO ×3 (09:15→17:59)
[2021-04-24] MEDS: MIDODRINE HCL 2.5 MG TABLET PO ×3 (09:15→17:59)
[2021-04-24] MEDS: MAGNESIUM OXIDE 400 MG TABLET PO (09:15)
[2021-04-24] MEDS: PANTOPRAZOLE 40 MG TABLET PO (09:15)
[2021-04-24] MEDS: BUMETANIDE 1 MG TABLET PO ×2 (09:15→17:59)
[2021-04-24] MEDS: ATORVASTATIN 10 MG TABLET PO (09:16)
[2021-04-24] MEDS: busPIRone HCL 2.5 MG TABLET PO ×3 (09:16→17:59)
[2021-04-24] MEDS: DOCUSATE SODIUM 100 MG CAPSULE PO ×2 (09:16→20:19)
--- NOTE | 2021-04-24 10:49 | ECG_ITS ---
Measurements Intervals [place] Rate: 80 P: -9 VA: 180 QRS: -48 QRSD: 102 T: 60 QT: 362 QTc: 418 Interpretive Statements SINUS RHYTHM LEFT ANTERIOR FASCICULAR BLOCK LEFT VENTRICULAR HYPERTROPHY AND ST-T CHANGE ABNORMAL ECG Electronically Signed On 04-24-2021 11:20:29 CDT by Bi Rosen D.O.
--- NOTE | 2021-04-24 10:52 | PM.CNCAR ---
Assessment and Plan Assessment and plan (1) Non-ST elevation myocardial infarction (NSTEMI): Code(s): I21.4 - Non-ST elevation (NSTEMI) myocardial infarction Status: Acute Assessment and Plan: She does not remember having chest pain yesterday but certainly appears that she has had a non ST-elevation myocardial infarction. Will increase her atorvastatin to 20 mg daily given her dementia, I think it is appropriate to treat her conservatively. Will start aspirin 81 mg p.o. daily. Isosorbide mononitrate 30 mg p.o. daily and EKG will be ordered stat. Discontinue digoxin. (2) Severe pulmonary hypertension: Code(s): I27.20 - Pulmonary hypertension, unspecified Status: Acute Assessment and Plan: Likely secondary to a combination of left heart disease and valvular heart disease. (3) Combined systolic and diastolic congestive heart failure: Code(s): I50.40 - Unspecified combined systolic (congestive) and diastolic (congestive) heart failure Status: Acute Assessment and Plan: Mild acute on chronic, likely ischemic as the most recent etiology. Will give a dose of furosemide 20 mg IV x1. Continue oral Bumex. Intake and output will be monitored as well as BMP (4) Cardiomyopathy: Code(s): I42.9 - Cardiomyopathy, unspecified Status: Acute Assessment and Plan: Moderate to severe. She has had hypotension with beta blockade in the past. Will add NATALIO inhibitor if blood pressure will allow. History of Present Illness History of Present Illness Consult date/time: 04/24/21 10:52 Requesting physician: Kelton Soliz MD Consult reason: chest pain and congestive heart failure Reason For Visit: chf,elevated troponin,hyperkalemia Narrative: Date of service 04/24/2021 Reason consultation CHF, chest pain Requesting provider: Dr. soliz History: Patient is an 85-year-old female who does have a history of valvular heart disease, cardiomyopathy, CHF, dementia who is a poor historian. She was recently admitted at the end of February because of a CHF exacerbation. She came back to the hospital yesterday because of chest pain although she cannot recall having chest pain. History is obtained by reviewing chart record and review. According to the triage note the patient complained of 10 and 10 chest pain although was not having any symptoms whenever she arrived to the emergency department. Troponins have gradually risen to level 3.3. She currently is pain free and denies any chest pain, shortness of breath, syncope, presyncope, paroxysmal nocturnal dyspnea, orthopnea, edema palpitations. Review of Systems Review of Systems: All systems reviewed & are unremarkable except as noted in HPI and below Constitutional: Constitutional: Reports weakness Eyes: Eyes: Denies blurry vision ENT: Reports Normal hearing present Cardiovascular: Cardiovascular: Reports chest pain Respiratory: Respiratory: Reports dyspnea on exertion Gastrointestinal: Gastrointestinal: Denies abdominal pain Genitourinary: Genitourinary: Denies flank pain Musculoskeletal: Musculoskeletal: Denies neck pain Integumentary/Breasts: Skin/Breast: Denies dry skin Neurologic: Denies headache(s) Psychiatric: Psychiatric: Denies anxiety and Denies confusion Endocrine: Endocrine: Denies excessive sweating Hematologic/Lymphatic: Hematologic/Lymphatic: Denies easy bleeding Allergic/Immunologic: Allergic/Immunologic: Denies GI upset with certain foods PMFSH Past Medical History Medical History 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 Congenital hammertoe of right foot Dementia Gastroesophageal reflux Generalized anxiety disorder Mitral stenosis with insufficiency Multifocal atrial tachycardia Osteoarthri
--- NOTE | 2021-04-24 11:25 | PM.IMPN ---
Progress Note: A&P Assessment and Plan (1) Non-ST elevation myocardial infarction (NSTEMI): Code(s): I21.4 - Non-ST elevation (NSTEMI) myocardial infarction Status: Acute Assessment and Plan: She presented after complaints of chest pain at her memory care facility but was not able to recall having this chest pain or elaborate on further details. Troponin elevated up to 3.3. Episode felt to be consistent with NSTEMI Appreciate cardiology consultation Planning for conservative management given dementia She has been started on aspirin 81 mg daily, isosorbide mononitrate 30 mg daily and atorvastatin increased to 20 mg (2) Combined systolic and diastolic congestive heart failure: Code(s): I50.40 - Unspecified combined systolic (congestive) and diastolic (congestive) heart failure Status: Acute Assessment and Plan: Chronic CHF with mild acute exacerbation, likely related to ischemic event. Mild pulmonary edema and cardiomegaly evident on CXR. One dose IV Lasix 20 mg given today Continue Bumex 1 mg p.o. b.i.d. Monitor intake and output. Weigh daily Heart healthy diet (3) Abnormal chest CT: Code(s): R93.89 - Abnormal findings on diagnostic imaging of other specified body structures Status: Acute Assessment and Plan: Chest CT performed on admission demonstrates left lung upper lobe mass and right middle lobe nodules concerning for infection vs malignancy Will proceed with treatment for pneumonia. Received IV Levaquin in the ED which will be continued. Supportive care to include bronchodilators, expectorants, antipyretics, and incentive spirometry. She is maintaining adequate O2 sats on room air. COVID considered but seems unlikely based on inflammatory markers and CXR findings. She did complete Pfizer vaccine in September 2020. Malignancy cannot be ruled out. She does have a 65 pack-year smoking history which places her at higher risk. Laboratory workup with elevated LDH and low CRP more suggestive of malignancy than infection. Will plan for repeat chest CT in 2 months as an outpatient. If CT findings are still present at that time, this would be suggestive of high likelihood for malignancy. Discussed with family and PCP plan of care. Daughter/POA, Shilpa, reports that if it were to be cancer, they would not pursue treatment. Will arrange outpatient chest CT in 2 months from discharge (4) Elevated digoxin level: Code(s): R78.89 - Finding of other specified substances, not normally found in blood Status: Acute Assessment and Plan: Digoxin has been discontinued per Cardiology recommendations (5) Hyperkalemia: Code(s): E87.5 - Hyperkalemia Status: Acute Assessment and Plan: Resolved. Potassium is 4.3 today Continue to monitor BMP (6) Elevated BUN: Code(s): R79.9 - Abnormal finding of blood chemistry, unspecified Status: Acute Assessment and Plan: BUN elevated at 45. Occult blood test has been ordered to evaluate for upper GI bleeding though H&H is consistent with baseline. Await results May have component of prerenal azotemia related to diuresis, however creatinine is within normal limits Continue cautious diuresis Continue to monitor BMP closely Subjective Date/time seen: 04/24/21 11:25 Interval history: Date of service: 04/24/2021 Zelda Chin is an 85 year old female with a history of CHF, mitral valve stenosis, GERD, dementia, who is seen in follow up for chest pain. Given her dementia, is difficult to obtain meaningful history from her. She complains of cough but denies sputum production. She denies chest pain. No palpitations, dizziness, lightheadedness. No shortness of breath. She reports she ate a good breakfast. She denies abdominal pain. No nausea or vomiting. She has no other concerns at this time. Review of Systems Review of Systems: All systems reviewed &
[2021-04-24] MEDS: ASPIRIN 81 MG ENTERIC TABLET PO (11:56)
[2021-04-24] MEDS: ISOSORBIDE MONONITRATE 15 MG TAB.ER.24H PO (11:56)
[2021-04-24] MEDS: ATORVASTATIN 20 MG TABLET PO (11:56)
[2021-04-24] MEDS: FUROSEMIDE INJ 40 MG/4 ML VIAL 20 MG IV PUSH (11:57)
[2021-04-24 13:19] LABS: Basophils Percent Auto 0.3 % (0.2-1.2); Eosinophils Absolute Auto 0.1 K/mm3 (0-0.3); Eosinophils Percent Auto 0.5 % (0-4.4); Hematocrit 32.4 % (37.0-47.0); Hemoglobin 10.4 g/dL (12.0-15.0); Immature Granulocyte Absolute 0.06 K/mm3 (0.00-0.031); Immature Granulocyte Percent A 0.6 % (0-0.5); Lymphocytes Absolute Auto 0.78 K/mm3 (0.9-3.2); Mean Corpuscular HGB Conc 32.1 g/dl (32-36); Mean Corpuscular Hemoglobin 30.1 pg (26-34); Mean Corpuscular Volume 93.9 fl (80-100); Mean Platelet Volume 9.6 fl (7.4-10.4); Monocytes Percent Auto 10.7 % (2.6-8.5); Neutrophils Absolute Auto 7.8 K/mm3 (1.3-6.7); Neutrophils Percent Auto 79.9 % (45.5-73.1); Platelet Count Result 241 k/mm3 (150-375); Red Blood Count 3.45 M/mm3 (4.2-5.4); Red Cell Distribution Width 15.9 % (11.5-14.5); White Blood Count 9.7 K/mm3 (4.5-10.0)
[2021-04-24 13:32] LABS: CRP < 0.5 mg/dL (<1.0); Lactate Dehydrogenase 672 U/L (313-618)
[2021-04-24] MEDS: traZODone HCL 50 MG TABLET 200 MG PO (20:18)
[2021-04-24] MEDS: guaiFENesin 12 HR 600 MG TABCR PO (20:19)
[2021-04-25] VITALS (17 sets, daily range): BP systolic 81–114; BP diastolic 51–81; PULSE 67–96; RESP 16–20; TEMP 36.1–36.9; O2SAT 93–100
[2021-04-25 05:09] LABS: Hematocrit 32.7 % (37.0-47.0); Hemoglobin 10.5 g/dL (12.0-15.0); Mean Corpuscular HGB Conc 32.1 g/dl (32-36); Mean Corpuscular Hemoglobin 29.7 pg (26-34); Mean Corpuscular Volume 92.6 fl (80-100); Mean Platelet Volume 9.7 fl (7.4-10.4); Platelet Count Result 246 k/mm3 (150-375); Red Blood Count 3.53 M/mm3 (4.2-5.4); Red Cell Distribution Width 15.7 % (11.5-14.5); White Blood Count 9.6 K/mm3 (4.5-10.0)
[2021-04-25 05:26] LABS: Anion Gap 4 mmol/L (8-16); Blood Urea Nitrogen 32 mg/dL (7-17); Calcium 8.6 mg/dL (8.4-10.2); Carbon Dioxide 35 mmol/L (22-30); Chloride 98 mmol/L (98-107); Estimated Glomerular Filt Rate 59; Glucose 104 mg/dL (65-110); Potassium 3.7 mmol/L (3.4-5.0); Sodium 137 mmol/L (137-145)
[2021-04-25] MEDS: ACETAMINOPHEN 325 MG TABLET 650 MG PO (05:47)
[2021-04-25] MEDS: ALBUTEROL SULFATE (*SP) AEROSOL 1 PUFF 2 PUFF INHALATION ×3 (08:40→20:11)
[2021-04-25] MEDS: busPIRone HCL 5 MG TABLET PO ×3 (08:53→17:22)
[2021-04-25] MEDS: ISOSORBIDE MONONITRATE 15 MG TAB.ER.24H PO (08:53)
[2021-04-25] MEDS: ATORVASTATIN 20 MG TABLET PO (08:53)
[2021-04-25] MEDS: PANTOPRAZOLE 40 MG TABLET PO (08:53)
[2021-04-25] MEDS: ASPIRIN 81 MG ENTERIC TABLET PO (08:53)
[2021-04-25] MEDS: DOCUSATE SODIUM 100 MG CAPSULE PO ×2 (08:53→20:48)
[2021-04-25] MEDS: busPIRone HCL 2.5 MG TABLET PO ×3 (08:53→17:21)
[2021-04-25] MEDS: MIDODRINE HCL 2.5 MG TABLET PO ×3 (08:53→17:22)
[2021-04-25] MEDS: guaiFENesin 12 HR 600 MG TABCR PO ×2 (08:53→20:48)
[2021-04-25] MEDS: MAGNESIUM OXIDE 400 MG TABLET PO (08:54)
[2021-04-25] MEDS: BUMETANIDE 1 MG TABLET PO ×2 (08:54→17:21)
--- NOTE | 2021-04-25 09:58 | PM.PNCARD ---
Progress Note: A&P Assessment and Plan (1) Non-ST elevation myocardial infarction (NSTEMI): Code(s): I21.4 - Non-ST elevation (NSTEMI) myocardial infarction Status: Acute Assessment and Plan: She does not remember having chest pain yesterday but certainly appears that she has had a non ST-elevation myocardial infarction. Will increase her atorvastatin to 20 mg daily given her dementia, I think it is appropriate to treat her conservatively. Continue aspirin 81 mg p.o. daily. Isosorbide mononitrate 15 mg p.o. daily Discontinue digoxin. (2) Severe pulmonary hypertension: Code(s): I27.20 - Pulmonary hypertension, unspecified Status: Acute Assessment and Plan: Likely secondary to a combination of left heart disease and valvular heart disease. (3) Combined systolic and diastolic congestive heart failure: Code(s): I50.40 - Unspecified combined systolic (congestive) and diastolic (congestive) heart failure Status: Acute Assessment and Plan: Mild acute on chronic, likely ischemic as the most recent etiology. Continue oral Bumex. Intake and output will be monitored as well as BMP. Potassium is slightly low and will replace with 40 mEq p.o. x1 (4) Cardiomyopathy: Code(s): I42.9 - Cardiomyopathy, unspecified Status: Acute Assessment and Plan: Moderate to severe. She has had hypotension with beta blockade in the past. Will add NATALIO inhibitor if blood pressure will allow. Subjective Date/time seen: 04/25/21 09:58 Interval history: Zelda Chin is an 85 year old female with a history of CHF, mitral valve stenosis, GERD, dementia, who is seen in follow up for chest pain. Date of service 04/25/2021: She feels pretty good today. No chest pain, shortness of breath. Review of Systems Review of Systems: All systems reviewed & are unremarkable except as noted in HPI and below Constitutional: Constitutional: Denies excessive sweating, Denies headache(s) and Reports weakness Eyes: Eyes: Denies blurry vision ENT: Reports Normal hearing present, Denies headache(s) and Denies neck pain Cardiovascular: Cardiovascular: Reports chest pain and Reports dyspnea on exertion Respiratory: Respiratory: Reports dyspnea on exertion Gastrointestinal: Gastrointestinal: Denies abdominal pain Genitourinary: Genitourinary: Denies flank pain Musculoskeletal: Musculoskeletal: Denies neck pain Integumentary/Breasts: Skin/Breast: Denies dry skin Neurologic: Reports Normal hearing present, Denies confusion, Denies headache(s) and Reports weakness Psychiatric: Psychiatric: Denies anxiety and Denies confusion Endocrine: Endocrine: Denies excessive sweating Hematologic/Lymphatic: Hematologic/Lymphatic: Denies easy bleeding Allergic/Immunologic: Allergic/Immunologic: Denies GI upset with certain foods Exam Narrative: Alert. Appears stated age Const: General: comfortable and no acute distress; No confusion Orientation/consciousness: No confusion HENMT: General nose exam: Normal nares present Eyes: Sclera: sclerae normal Neck: Neck: supple and no JVD Chest: Other: No reproducible chest wall pain to palpation Resp: Auscultation: rales and diminished lung sounds Cardio: Rate: regular rate Rhythm: regular rhythm Heart sounds: Murmur heart sound present Skin: General skin exam: normal color Other: Bruises noted Neuro: General: No confusion Cranial nerves: Yes Normal hearing present Cognition (Neuro): normal cognition Speech: normal speech Extrem: General: edema (Trivial lower extremity) Psych: Affect: normal affect Objective Data Vital Signs Vital Signs: Vital Signs - 24 hr 04/24/21 10:00 04/24/21 12:00 04/24/21 12:43 Temperature 37.1 C Pulse Rate 87 78 76 Respiratory Rate 20 Blood Pressure 87/51 L Pulse Oximetry 100 04/24/21 14:00 04/24/21 15:16 04/24/21 15:19 Temperature 35.7 C L Pulse Rate 82 83 Respiratory Rate 18
[2021-04-25] MEDS: POTASSIUM CHLORIDE 20 MEQ TABLET 40 MEQ PO (12:30)
--- NOTE | 2021-04-25 13:50 | PCCCNOTE ---
On 04/25/21, the student, [Ngozi Alcantara], provided care and completed [email or web address] documentation on this patient. I have reviewed the student's documentation and agree with the findings.
--- NOTE | 2021-04-25 15:20 | PC.NURSE ---
This patient, Zelda Chin, was received from [U / ] on 04/25/21 at 1515. Patient/family oriented to unit policies and routines. pt orientated to use of call light.
--- NOTE | 2021-04-25 18:19 | PM.IMPN ---
Progress Note: A&P Assessment and Plan (1) Non-ST elevation myocardial infarction (NSTEMI): Code(s): I21.4 - Non-ST elevation (NSTEMI) myocardial infarction Status: Acute Assessment and Plan: She presented after complaints of chest pain at her memory care facility but was not able to recall having this chest pain or elaborate on further details. Troponin elevated up to 3.3. Episode felt to be consistent with NSTEMI Appreciate cardiology consultation Planning for conservative management given dementia She has been started on aspirin 81 mg daily, isosorbide mononitrate 30 mg daily and atorvastatin increased to 20 mg (2) Combined systolic and diastolic congestive heart failure: Code(s): I50.40 - Unspecified combined systolic (congestive) and diastolic (congestive) heart failure Status: Acute Assessment and Plan: Chronic CHF with mild acute exacerbation, likely related to ischemic event. Mild pulmonary edema and cardiomegaly evident on CXR. Continue Bumex 1 mg p.o. b.i.d. Monitor intake and output. Weigh daily Heart healthy diet (3) Abnormal chest CT: Code(s): R93.89 - Abnormal findings on diagnostic imaging of other specified body structures Status: Acute Assessment and Plan: Chest CT performed on admission demonstrates left lung upper lobe mass and right middle lobe nodules concerning for infection vs malignancy Will proceed with treatment for pneumonia. Received IV Levaquin in the ED which will be continued. Supportive care to include bronchodilators, expectorants, antipyretics, and incentive spirometry. She is maintaining adequate O2 sats on room air. COVID considered but seems unlikely based on inflammatory markers and CXR findings. She did complete Pfizer vaccine in September 2020. Malignancy cannot be ruled out. She does have a 65 pack-year smoking history which places her at higher risk. Laboratory workup with elevated LDH and low CRP more suggestive of malignancy than infection. Will plan for repeat chest CT in 2 months as an outpatient. If CT findings are still present at that time, this would be suggestive of high likelihood for malignancy. Discussed with family and PCP plan of care. Daughter/POA, Shilpa, reports that if it were to be cancer, they would not pursue treatment. Will arrange outpatient chest CT in 2 months from discharge (4) Elevated digoxin level: Code(s): R78.89 - Finding of other specified substances, not normally found in blood Status: Acute Assessment and Plan: Digoxin has been discontinued per Cardiology recommendations (5) Hyperkalemia: Code(s): E87.5 - Hyperkalemia Status: Acute Assessment and Plan: Resolved. Potassium is 4.3 Continue to monitor BMP (6) Elevated BUN: Code(s): R79.9 - Abnormal finding of blood chemistry, unspecified Status: Acute Assessment and Plan: BUN elevated at 45. Occult blood test has been ordered to evaluate for upper GI bleeding though H&H is consistent with baseline. Await results May have component of prerenal azotemia related to diuresis, however creatinine is within normal limits Continue cautious diuresis Continue to monitor BMP closely Subjective Date/time seen: 04/25/21 18:19 Interval history: Zelda Chin is an 85 year old female with a history of CHF, mitral valve stenosis, GERD, dementia, who is seen in follow up for chest pain. Interval history: No further chest pain. She states she is doing good wants to rest and not disturb her. She denies any nausea vomiting abdominal pain fever chills Review of Systems Review of Systems: All systems reviewed & are unremarkable except as noted in HPI and below Exam Narrative: General: Thin frail looking comfortable not in acute distress Neuro: awake, alert and conversant. HEENMT: normocephalic, atraumatic, EOMI, sclerae anicteric, moist oral mucosa Neck: suppl
[2021-04-25] MEDS: traZODone HCL 50 MG TABLET 200 MG PO (20:48)
[2021-04-25] MEDS: SODIUM CHLORIDE 0.9% IV 500 ML IV CONT (21:37)
[2021-04-26] VITALS (12 sets, daily range): BP systolic 87–109; BP diastolic 62–66; PULSE 84–100; RESP 18–24; TEMP 35.9–36.8; O2SAT 91–99
[2021-04-26] MEDS: ALBUTEROL SULFATE (*SP) AEROSOL 1 PUFF 2 PUFF INHALATION ×4 (02:33→20:30)
--- NOTE | 2021-04-26 03:33 | ECG_ITS ---
Measurements Intervals Taberg Rate: 99 P: RI: 0 QRS: -40 QRSD: 105 T: 44 QT: 360 QTc: 463 Interpretive Statements SINUS RHYTHM FREQUENT ATRIAL PREMATURE COMPLEXES LEFT AXIS DEVIATION LEFT VENTRICULAR HYPERTROPHY WITH ST-T CHANGE BORDERLINE R WAVE PROGRESSION, ANTERIOR LEADS ABNORMAL ECG Electronically Signed On 04-26-2021 7:14:44 CDT by Bi Rosen D.O.
--- NOTE | 2021-04-26 04:04 | PC.NURSE ---
at approximately 03:15 (after several previous calls) patient complained of chest pain. I went and assessed vitals, they were WNL for this patient. She said it felt like pressure, but could not articulate much else. Due to short term memory concerns she would forget about the pain and would not remember me from leaving her room to entering it. Upon auscultation she did not sound wet or different from 2100 assessment. On the telemetry her WI has been between 85-110 and the monitor stated a.fib which would be new to this patient. Called Dr. Morrison who ordered a stat ekg which confirmed new a.fib. Called Dr. Morrison with results who said to continue to monitor her rate via telemetry and to ensure bnp and mag levels will be drawn today. Checked on patient after ekg and she said she is feeling great at this time. Will continue to watch her and pass on this new info in report.
[2021-04-26] MEDS: ACETAMINOPHEN 325 MG TABLET 650 MG PO (04:58)
[2021-04-26 06:56] LABS: Basophils Percent Auto 0.4 % (0.2-1.2); Eosinophils Absolute Auto 0.1 K/mm3 (0-0.3); Eosinophils Percent Auto 0.6 % (0-4.4); Hematocrit 33.6 % (37.0-47.0); Hemoglobin 10.5 g/dL (12.0-15.0); Immature Granulocyte Absolute 0.07 K/mm3 (0.00-0.031); Immature Granulocyte Percent A 0.7 % (0-0.5); Lymphocytes Percent Auto 8.5 % (18.3-44.2); Mean Corpuscular HGB Conc 31.3 g/dl (32-36); Mean Corpuscular Hemoglobin 29.4 pg (26-34); Mean Corpuscular Volume 94.1 fl (80-100); Mean Platelet Volume 9.8 fl (7.4-10.4); Monocytes Percent Auto 10.4 % (2.6-8.5); Neutrophils Absolute Auto 7.5 K/mm3 (1.3-6.7); Neutrophils Percent Auto 79.4 % (45.5-73.1); Platelet Count Result 239 k/mm3 (150-375); Red Blood Count 3.57 M/mm3 (4.2-5.4); Red Cell Distribution Width 15.8 % (11.5-14.5); White Blood Count 9.4 K/mm3 (4.5-10.0)
[2021-04-26 07:17] LABS: Anion Gap 6 mmol/L (8-16); Blood Urea Nitrogen 26 mg/dL (7-17); Calcium 8.6 mg/dL (8.4-10.2); Carbon Dioxide 32 mmol/L (22-30); Chloride 98 mmol/L (98-107); Estimated Glomerular Filt Rate > 60; Glucose 115 mg/dL (65-110); Potassium 4.3 mmol/L (3.4-5.0); Sodium 136 mmol/L (137-145)
[2021-04-26] MEDS: busPIRone HCL 2.5 MG TABLET PO ×3 (08:29→17:27)
[2021-04-26] MEDS: DOCUSATE SODIUM 100 MG CAPSULE PO ×2 (08:30→21:15)
[2021-04-26] MEDS: MIDODRINE HCL 2.5 MG TABLET PO ×3 (08:30→17:28)
[2021-04-26] MEDS: guaiFENesin 12 HR 600 MG TABCR PO ×2 (08:30→21:15)
[2021-04-26] MEDS: ATORVASTATIN 20 MG TABLET PO (08:30)
[2021-04-26] MEDS: PANTOPRAZOLE 40 MG TABLET PO (08:30)
[2021-04-26] MEDS: MAGNESIUM OXIDE 400 MG TABLET PO (08:30)
[2021-04-26] MEDS: busPIRone HCL 5 MG TABLET PO ×3 (08:30→17:28)
[2021-04-26] MEDS: BUMETANIDE 1 MG TABLET PO ×2 (08:30→17:27)
[2021-04-26] MEDS: ASPIRIN 81 MG ENTERIC TABLET PO (08:31)
[2021-04-26] MEDS: ISOSORBIDE MONONITRATE 15 MG TAB.ER.24H PO (08:31)
--- NOTE | 2021-04-26 12:44 | PCPTNOTE ---
Attempted therapy, but pt refused.
--- NOTE | 2021-04-26 13:32 | PCOTNOTE ---
Attempted evaluation twice on 04/26/21, patient declined to participate each time. Will attempt tomorrow 04/27/21.
--- NOTE | 2021-04-26 14:31 | PM.IMPN ---
Progress Note: A&P Assessment and Plan (1) Non-ST elevation myocardial infarction (NSTEMI): Code(s): I21.4 - Non-ST elevation (NSTEMI) myocardial infarction Status: Acute Assessment and Plan: She presented after complaints of chest pain at her memory care facility but was not able to recall having this chest pain or elaborate on further details. Troponin elevated up to 3.3. Episode felt to be consistent with NSTEMI Appreciate cardiology consultation Planning for conservative management given dementia She has been started on aspirin 81 mg daily, isosorbide mononitrate 30 mg daily and atorvastatin increased to 20 mg (2) Combined systolic and diastolic congestive heart failure: Code(s): I50.40 - Unspecified combined systolic (congestive) and diastolic (congestive) heart failure Status: Acute Assessment and Plan: Chronic CHF with mild acute exacerbation, likely related to ischemic event. Mild pulmonary edema and cardiomegaly evident on CXR. Continue Bumex 1 mg p.o. b.i.d. Monitor intake and output. Weight daily Heart healthy diet (3) Abnormal chest CT: Code(s): R93.89 - Abnormal findings on diagnostic imaging of other specified body structures Status: Acute Assessment and Plan: Chest CT performed on admission demonstrates left lung upper lobe mass and right middle lobe nodules concerning for infection vs malignancy Will proceed with treatment for pneumonia. Received IV Levaquin in the ED which will be continued. Supportive care to include bronchodilators, expectorants, antipyretics, and incentive spirometry. She is maintaining adequate O2 sats on room air. COVID considered but seems unlikely based on inflammatory markers and CXR findings. She did complete Pfizer vaccine in September 2020. Malignancy cannot be ruled out. She does have a 65 pack-year smoking history which places her at higher risk. Laboratory workup with elevated LDH and low CRP more suggestive of malignancy than infection. Will plan for repeat chest CT in 2 months as an outpatient. If CT findings are still present at that time, this would be suggestive of high likelihood for malignancy. Discussed with family and PCP plan of care. Daughter/POA, Shilpa, reports that if it were to be cancer, they would not pursue treatment. Will arrange outpatient chest CT in 2 months from discharge (4) Elevated digoxin level: Code(s): R78.89 - Finding of other specified substances, not normally found in blood Status: Acute Assessment and Plan: Digoxin has been discontinued per Cardiology recommendations (5) Hyperkalemia: Code(s): E87.5 - Hyperkalemia Status: Acute Assessment and Plan: Resolved. Potassium is 4.3 Continue to monitor BMP (6) Elevated BUN: Code(s): R79.9 - Abnormal finding of blood chemistry, unspecified Status: Acute Assessment and Plan: BUN elevated at 45. Occult blood test has been ordered to evaluate for upper GI bleeding though H&H is consistent with baseline. Await results May have component of prerenal azotemia related to diuresis, however creatinine is within normal limits Continue cautious diuresis Continue to monitor BMP closely Additional Plan Discussed with daughter today PT OT to see her and assess for further needs Back to [facility] if able to in 1-2 days Subjective Date/time seen: 04/26/21 14:31 Interval history: Zelda Chin is an 85 year old female with a history of CHF, mitral valve stenosis, GERD, dementia, who is seen in follow up for chest pain. Interval history: Overnight she was tachycardia for which EKG was done telemetry suggestive of atrial fibrillation. Upon review of the telemetry strips and EKG. Looks sinus rhythm she denies any chest pain she states she is feeling good denies any shortness of breath Review of Systems Review of Systems: All systems reviewed & are unrema
--- NOTE | 2021-04-26 14:45 | PM.PNCARD ---
Progress Note: A&P Assessment and Plan (1) Non-ST elevation myocardial infarction (NSTEMI): Code(s): I21.4 - Non-ST elevation (NSTEMI) myocardial infarction Status: Acute Assessment and Plan: Conservative Medical management for non ST-elevation myocardial infarction given age, comorbidities and dementia. No plans for invasive angiography. Continue Atorvastatin 20 mg daily, aspirin 81 mg p.o. daily. Isosorbide mononitrate 15 mg p.o. daily as BP allows. Patient started on midodrine yesterday due to relative hypotension. May need to discontinue isosorbide provided no recurrent anginal symptoms. DVT prophylaxis. PT OT. Ambulate with extreme caution to avoid risk for falls and injuries. (2) Severe pulmonary hypertension: Code(s): I27.20 - Pulmonary hypertension, unspecified Status: Acute Assessment and Plan: Likely secondary to a combination of left heart disease and valvular heart disease. Conservative management. (3) Combined systolic and diastolic congestive heart failure: Code(s): I50.40 - Unspecified combined systolic (congestive) and diastolic (congestive) heart failure Status: Acute Assessment and Plan: Mild acute on chronic, most likely ischemic etiology. Continue oral Bumex. Monitor renal function and electrolytes. Stable thus far. She remains on Bumex 1 mg b.i.d.. (4) Cardiomyopathy: Code(s): I42.9 - Cardiomyopathy, unspecified Status: Acute Assessment and Plan: Moderate LV dysfunction EF 35-40%. She is intermittently hypotensive not able to tolerate beta-kaitlynn, Bahman/ARB. Cautious diuresis renal function stable. May need to reduce Bumex to 1 mg daily if she remains hypotensive despite midodrine. Do not resume digoxin. Subjective Date/time seen: Date of service: 04/26/21 14:45 Interval history: Zelda Chin is an 85 year old female with a history of CHF, mitral valve stenosis, GERD, dementia, who is seen in follow up for chest pain. Patient denies chest pain, shortness of breath. Notes her legs are sore. Eating okay denies nausea vomiting. She offers no new complaints. Review of Systems Review of Systems: All systems reviewed & are unremarkable except as noted in HPI and below Constitutional: Constitutional: Denies excessive sweating, Denies headache(s) and Reports weakness Eyes: Eyes: Denies blurry vision ENT: Reports Normal hearing present, Denies headache(s) and Denies neck pain Cardiovascular: Cardiovascular: Reports chest pain and Reports dyspnea on exertion Respiratory: Respiratory: Reports dyspnea on exertion Gastrointestinal: Gastrointestinal: Denies abdominal pain Genitourinary: Genitourinary: Denies flank pain Musculoskeletal: Musculoskeletal: Denies neck pain Integumentary/Breasts: Skin/Breast: Denies dry skin Neurologic: Reports Normal hearing present, Denies confusion, Denies headache(s) and Reports weakness Psychiatric: Psychiatric: Denies anxiety and Denies confusion Endocrine: Endocrine: Denies excessive sweating Hematologic/Lymphatic: Hematologic/Lymphatic: Denies easy bleeding Allergic/Immunologic: Allergic/Immunologic: Denies GI upset with certain foods Exam Narrative: Alert. Appears stated age Const: General: comfortable and no acute distress; No confusion Orientation/consciousness: No confusion HENMT: General nose exam: Normal nares present Eyes: Sclera: sclerae normal Neck: Neck: supple and no JVD Chest: Other: No reproducible chest wall pain to palpation Resp: Auscultation: rales and diminished lung sounds Cardio: Rate: regular rate Rhythm: regular rhythm Heart sounds: Murmur heart sound present Skin: General skin exam: normal color Other: Bruises noted Neuro: General: No confusion Cranial nerves: Yes Normal hearing present Cognition (Neuro): normal cognition Speech: normal speech Extrem: General: edema (Trivial lower extremity) Psych: Affect: normal affect
[2021-04-26] MEDS: traZODone HCL 50 MG TABLET 200 MG PO (21:15)
[2021-04-27] VITALS (10 sets, daily range): BP systolic 94–106; BP diastolic 62–71; PULSE 56–98; RESP 16–18; TEMP 36.1–36.5; O2SAT 92–95
[2021-04-27] MEDS: ALBUTEROL SULFATE (*SP) AEROSOL 1 PUFF 2 PUFF INHALATION ×4 (01:36→20:16)
[2021-04-27] MEDS: DOCUSATE SODIUM 100 MG CAPSULE PO (08:37)
[2021-04-27] MEDS: BUMETANIDE 1 MG TABLET PO ×2 (08:37→16:54)
[2021-04-27] MEDS: ASPIRIN 81 MG ENTERIC TABLET PO (08:37)
[2021-04-27] MEDS: busPIRone HCL 2.5 MG TABLET PO ×3 (08:37→16:55)
[2021-04-27] MEDS: guaiFENesin 12 HR 600 MG TABCR PO ×2 (08:37→20:26)
[2021-04-27] MEDS: MAGNESIUM OXIDE 400 MG TABLET PO (08:37)
[2021-04-27] MEDS: busPIRone HCL 5 MG TABLET PO ×3 (08:37→16:55)
[2021-04-27] MEDS: MIDODRINE HCL 2.5 MG TABLET PO ×3 (08:37→16:55)
[2021-04-27] MEDS: PANTOPRAZOLE 40 MG TABLET PO (08:37)
[2021-04-27] MEDS: ATORVASTATIN 20 MG TABLET PO (08:37)
[2021-04-27] MEDS: ISOSORBIDE MONONITRATE 15 MG TAB.ER.24H PO (08:38)
--- NOTE | 2021-04-27 14:10 | PM.PNCARD ---
Progress Note: A&P Assessment and Plan (1) Non-ST elevation myocardial infarction (NSTEMI): Code(s): I21.4 - Non-ST elevation (NSTEMI) myocardial infarction Status: Acute Assessment and Plan: Conservative medical management for non ST-elevation myocardial infarction given age, comorbidities and dementia. No plans for invasive angiography. Continue Atorvastatin 20 mg daily, aspirin 81 mg p.o. daily. Isosorbide mononitrate 15 mg p.o. daily as BP allows. Patient started on midodrine yesterday due to relative hypotension. May need to discontinue isosorbide provided no recurrent anginal symptoms. DVT prophylaxis. PT OT. Ambulate with extreme caution to avoid risk for falls and injuries. Patient high fall and bleeding risk. (2) Severe pulmonary hypertension: Code(s): I27.20 - Pulmonary hypertension, unspecified Status: Acute Assessment and Plan: Likely secondary to a combination of left heart disease and valvular heart disease. Conservative management. (3) Combined systolic and diastolic congestive heart failure: Code(s): I50.40 - Unspecified combined systolic (congestive) and diastolic (congestive) heart failure Status: Acute Assessment and Plan: Mild acute on chronic, most likely ischemic etiology. Continue oral Bumex. Patient appears relatively euvolemic at this time. Monitor renal function and electrolytes. Stable thus far. She remains on Bumex 1 mg b.i.d. which is her home dose. However, given relative hypotension may need to reduce to 1 mg daily check BMP in a.m.. (4) Cardiomyopathy: Code(s): I42.9 - Cardiomyopathy, unspecified Status: Acute Assessment and Plan: Moderate LV dysfunction EF 35-40%. She is intermittently hypotensive not able to tolerate beta-kaitlynn, Bahman/ARB. Cautious diuresis renal function stable. May need to reduce Bumex to 1 mg daily if she remains hypotensive despite midodrine. Do not resume digoxin. Subjective Date/time seen: Date of service: 04/27/21 14:10 Interval history: Zelda Chin is an 85 year old female with a history of CHF, mitral valve stenosis, GERD, dementia, who is seen in follow up for chest pain. Patient relatively hypotensive. Appears fatigued the patient states she feels okay. Was sleeping but easily arousable upon entering the room. Again she denies chest pain, shortness of breath. Notes her legs are sore. She offers no new complaints. She remains on IV antibiotics. Review of Systems Review of Systems: All systems reviewed & are unremarkable except as noted in HPI and below Constitutional: Constitutional: Denies excessive sweating, Denies headache(s) and Reports weakness Eyes: Eyes: Denies blurry vision ENT: Reports Normal hearing present, Denies headache(s) and Denies neck pain Cardiovascular: Cardiovascular: Reports chest pain and Reports dyspnea on exertion Respiratory: Respiratory: Reports dyspnea on exertion Gastrointestinal: Gastrointestinal: Denies abdominal pain Genitourinary: Genitourinary: Denies flank pain Musculoskeletal: Musculoskeletal: Denies neck pain Integumentary/Breasts: Skin/Breast: Denies dry skin Neurologic: Reports Normal hearing present, Denies confusion, Denies headache(s) and Reports weakness Psychiatric: Psychiatric: Denies anxiety and Denies confusion Endocrine: Endocrine: Denies excessive sweating Hematologic/Lymphatic: Hematologic/Lymphatic: Denies easy bleeding Allergic/Immunologic: Allergic/Immunologic: Denies GI upset with certain foods Exam Narrative: Sleeping but easily arousable, Alert. Appears stated age Const: General: comfortable and no acute distress; No confusion Orientation/consciousness: No confusion HENMT: General nose exam: Normal nares present Eyes: Sclera: sclerae normal Neck: Neck: supple and no JVD Chest: Other: No reproducible chest wall pain to palpation Resp: Auscultation: rales and diminished lung sounds
--- NOTE | 2021-04-27 14:33 | PM.IMPN ---
Progress Note: A&P Assessment and Plan (1) Non-ST elevation myocardial infarction (NSTEMI): Code(s): I21.4 - Non-ST elevation (NSTEMI) myocardial infarction Status: Acute Assessment and Plan: She presented after complaints of chest pain at her memory care facility but was not able to recall having this chest pain or elaborate on further details. Troponin elevated up to 3.3. Episode felt to be consistent with NSTEMI Appreciate cardiology consultation Planning for conservative management given dementia She has been started on aspirin 81 mg daily, isosorbide mononitrate 30 mg daily and atorvastatin increased to 20 mg (2) Combined systolic and diastolic congestive heart failure: Code(s): I50.40 - Unspecified combined systolic (congestive) and diastolic (congestive) heart failure Status: Acute Assessment and Plan: Chronic CHF with mild acute exacerbation, likely related to ischemic event. Mild pulmonary edema and cardiomegaly evident on CXR. Continue Bumex 1 mg p.o. b.i.d. Monitor intake and output. Weight daily Heart healthy diet (3) Abnormal chest CT: Code(s): R93.89 - Abnormal findings on diagnostic imaging of other specified body structures Status: Acute Assessment and Plan: Chest CT performed on admission demonstrates left lung upper lobe mass and right middle lobe nodules concerning for infection vs malignancy Will proceed with treatment for pneumonia. Received IV Levaquin in the ED which will be continued. Supportive care to include bronchodilators, expectorants, antipyretics, and incentive spirometry. She is maintaining adequate O2 sats on room air. COVID considered but seems unlikely based on inflammatory markers and CXR findings. She did complete Pfizer vaccine in September 2020. Malignancy cannot be ruled out. She does have a 65 pack-year smoking history which places her at higher risk. Laboratory workup with elevated LDH and low CRP more suggestive of malignancy than infection. Will plan for repeat chest CT in 2 months as an outpatient. If CT findings are still present at that time, this would be suggestive of high likelihood for malignancy. Discussed with family and PCP plan of care. Daughter/POA, Shilpa, reports that if it were to be cancer, they would not pursue treatment. Will arrange outpatient chest CT in 2 months from discharge (4) Elevated digoxin level: Code(s): R78.89 - Finding of other specified substances, not normally found in blood Status: Acute Assessment and Plan: Digoxin has been discontinued per Cardiology recommendations (5) Hyperkalemia: Code(s): E87.5 - Hyperkalemia Status: Acute Assessment and Plan: Resolved. Potassium is 4.3 Continue to monitor BMP (6) Elevated BUN: Code(s): R79.9 - Abnormal finding of blood chemistry, unspecified Status: Acute Assessment and Plan: BUN elevated at 45. Occult blood test has been ordered to evaluate for upper GI bleeding though H&H is consistent with baseline. Await results May have component of prerenal azotemia related to diuresis, however creatinine is within normal limits Continue cautious diuresis Continue to monitor BMP closely Additional Plan Discussed with daughter 04/26/2021 PT OT to see her and assess for further needs Back to [facility] if able to in 1-2 days Subjective Date/time seen: 04/27/21 14:33 Interval history: Zelda Chin is an 85 year old female with a history of CHF, mitral valve stenosis, GERD, dementia, who is seen in follow up for chest pain. Interval history: No overnight events. Was working with therapy this morning. His and shortness of breath or chest pain no leg swelling noted. Review of Systems Review of Systems: All systems reviewed & are unremarkable except as noted in HPI and below Exam Narrative: General: Thin frail looking comfortable not in acute distress
[2021-04-27] MEDS: traZODone HCL 50 MG TABLET 200 MG PO (20:26)
[2021-04-28] VITALS (11 sets, daily range): BP systolic 99–104; BP diastolic 73–78; PULSE 83–104; RESP 16–18; TEMP 36.3–37.2; O2SAT 92–98
[2021-04-28] MEDS: ALBUTEROL SULFATE (*SP) AEROSOL 1 PUFF 2 PUFF INHALATION ×4 (02:29→20:39)
[2021-04-28 06:31] LABS: Basophils Absolute Auto 0.1 K/mm3 (0.0-0.1); Basophils Percent Auto 0.6 % (0.2-1.2); Eosinophils Absolute Auto 0.1 K/mm3 (0-0.3); Eosinophils Percent Auto 1.7 % (0-4.4); Hematocrit 35.5 % (37.0-47.0); Hemoglobin 11.3 g/dL (12.0-15.0); Immature Granulocyte Absolute 0.07 K/mm3 (0.00-0.031); Immature Granulocyte Percent A 0.8 % (0-0.5); Lymphocytes Absolute Auto 0.76 K/mm3 (0.9-3.2); Mean Corpuscular HGB Conc 31.8 g/dl (32-36); Mean Corpuscular Hemoglobin 29.7 pg (26-34); Mean Corpuscular Volume 93.4 fl (80-100); Mean Platelet Volume 9.7 fl (7.4-10.4); Monocytes Absolute Auto 0.8 K/mm3 (0.1-0.6); Monocytes Percent Auto 8.9 % (2.6-8.5); Neutrophils Absolute Auto 6.6 K/mm3 (1.3-6.7); Platelet Count Result 252 k/mm3 (150-375); Red Cell Distribution Width 15.9 % (11.5-14.5); White Blood Count 8.4 K/mm3 (4.5-10.0)
[2021-04-28 06:40] LABS: Alanine Aminotransferase 15 U/L (4-35); Albumin Level 3.4 g/dL (3.5-5.1); Alkaline Phosphatase 79 U/L (38-126); Anion Gap 4 mmol/L (8-16); Aspartate Amino Transferase 23 U/L (14-36); Bilirubin,Total 0.5 mg/dL (0.2-1.3); Blood Urea Nitrogen 22 mg/dL (7-17); Calcium 8.7 mg/dL (8.4-10.2); Carbon Dioxide 34 mmol/L (22-30); Chloride 98 mmol/L (98-107); Estimated Glomerular Filt Rate 59; Glucose 109 mg/dL (65-110); Potassium 3.5 mmol/L (3.4-5.0); Sodium 136 mmol/L (137-145)
[2021-04-28] MEDS: ACETAMINOPHEN 325 MG TABLET 650 MG PO ×2 (06:57→13:19)
[2021-04-28] MEDS: guaiFENesin 12 HR 600 MG TABCR PO ×2 (08:37→20:37)
[2021-04-28] MEDS: busPIRone HCL 2.5 MG TABLET PO ×3 (08:37→17:50)
[2021-04-28] MEDS: ATORVASTATIN 20 MG TABLET PO (08:37)
[2021-04-28] MEDS: MAGNESIUM OXIDE 400 MG TABLET PO (08:37)
[2021-04-28] MEDS: DOCUSATE SODIUM 100 MG CAPSULE PO ×2 (08:37→20:37)
[2021-04-28] MEDS: PANTOPRAZOLE 40 MG TABLET PO (08:38)
[2021-04-28] MEDS: busPIRone HCL 5 MG TABLET PO ×3 (08:38→17:50)
[2021-04-28] MEDS: BUMETANIDE 1 MG TABLET PO ×2 (08:38→17:50)
[2021-04-28] MEDS: MIDODRINE HCL 2.5 MG TABLET PO ×3 (08:38→20:37)
[2021-04-28] MEDS: ASPIRIN 81 MG ENTERIC TABLET PO (08:38)
[2021-04-28] MEDS: ISOSORBIDE MONONITRATE 15 MG TAB.ER.24H PO (08:38)
--- NOTE | 2021-04-28 10:41 | PM.PNCARD ---
Progress Note: A&P Assessment and Plan (1) Non-ST elevation myocardial infarction (NSTEMI): Code(s): I21.4 - Non-ST elevation (NSTEMI) myocardial infarction <JASON Scanlon - Last Filed: 04/28/21 13:55> Status: Acute <JASON Scanlon - Last Filed: 04/28/21 13:55> Assessment and Plan: Conservative medical management for non ST-elevation myocardial infarction given age, comorbidities and dementia. No plans for invasive angiography. Continue Atorvastatin 20 mg daily, aspirin 81 mg p.o. daily. Patient started on midodrine due to relative hypotension. Will discontinue isosorbide in an attempt to normalize BP. She is not having any ongoing anginal symptoms. DVT prophylaxis. PT OT. Ambulate with extreme caution to avoid risk for falls and injuries. Patient high fall and bleeding risk. <JASON Scanlon - Last Filed: 04/28/21 13:55> (2) Severe pulmonary hypertension: Code(s): I27.20 - Pulmonary hypertension, unspecified <JASON Scanlon - Last Filed: 04/28/21 13:55> Status: Acute <JASON Scanlon - Last Filed: 04/28/21 13:55> Assessment and Plan: Likely secondary to a combination of left heart disease and valvular heart disease. Conservative management. <JASON Scanlon - Last Filed: 04/28/21 13:55> (3) Combined systolic and diastolic congestive heart failure: Code(s): I50.40 - Unspecified combined systolic (congestive) and diastolic (congestive) heart failure <JASON Scanlon - Last Filed: 04/28/21 13:55> Status: Acute <JASON Scanlon - Last Filed: 04/28/21 13:55> Assessment and Plan: Mild acute on chronic, most likely ischemic etiology. Continue oral Bumex. Patient appears relatively euvolemic at this time. Monitor renal function and electrolytes. Stable thus far. She remains on Bumex 1 mg b.i.d. which is her home dose. <JASON Scanlon - Last Filed: 04/28/21 13:55> (4) Cardiomyopathy: Code(s): I42.9 - Cardiomyopathy, unspecified <JASON Scanlon - Last Filed: 04/28/21 13:55> Status: Acute <JASON Scanlon - Last Filed: 04/28/21 13:55> Assessment and Plan: Moderate LV dysfunction EF 35-40%. She is intermittently hypotensive not able to tolerate beta-akitlynn, Bahman/ARB. Cautious diuresis renal function stable. May need to reduce Bumex to 1 mg daily if she remains hypotensive despite midodrine. Do not resume digoxin. <JASON Scanlon - Last Filed: 04/28/21 13:55> Additional Plan Attending Addendum: I agree with the above documentation and plan of care. <Maikel Garcia MD - Last Filed: 04/28/21 15:14> Subjective Date/time seen: 04/28/21 10:41 <JASON Scanlon - Last Filed: 04/28/21 13:55> Interval history: Zedla Chin is an 85 year old female with a history of CHF, mitral valve stenosis, GERD, dementia, who is seen in follow up for chest pain. Date of service 04/28/2021: No acute events overnight. Feeling well today and free from any complaints. Remains relatively hypotensive. <JASON Scanlon - Last Filed: 04/28/21 13:55> Review of Systems Review of Systems: All systems reviewed & are unremarkable except as noted in HPI and below <JASON Scanlon - Last Filed: 04/28/21 13:55> Constitutional: Constitutional: Denies excessive sweating, Denies headache(s) and Reports weakness <JASON Scanlon - Last Filed: 04/28/21 13:55> Eyes: Eyes: Denies blurry vision <JASON Scanlon - Last Filed: 04/28/21 13:55> ENT: Reports Normal hearing present, Denies headache(s) and Denies neck pain <JASON Scanlon - Last Filed: 04/28/21 13:55> Cardiovascular: Cardiovascular: Reports chest pain and Reports dyspnea on exertion <JASON Scanoln - Last Filed: 04/28/21 13:55> Respiratory: Respiratory: Reports dyspnea on exertion <JASON Scanlon - L
--- NOTE | 2021-04-28 17:20 | PM.IMPN ---
Progress Note: A&P Assessment and Plan (1) Non-ST elevation myocardial infarction (NSTEMI): Code(s): I21.4 - Non-ST elevation (NSTEMI) myocardial infarction Status: Acute Assessment and Plan: She presented after complaints of chest pain at her memory care facility but was not able to recall having this chest pain or elaborate on further details. Troponin elevated up to 3.3. Episode felt to be consistent with NSTEMI Appreciate cardiology consultation Planning for conservative management given dementia She has been started on aspirin 81 mg daily, isosorbide mononitrate 30 mg daily and atorvastatin increased to 20 mg Imdur has been stopped due to hypotension (2) Combined systolic and diastolic congestive heart failure: Code(s): I50.40 - Unspecified combined systolic (congestive) and diastolic (congestive) heart failure Status: Acute Assessment and Plan: Chronic CHF with mild acute exacerbation, likely related to ischemic event. Mild pulmonary edema and cardiomegaly evident on CXR. Continue Bumex 1 mg p.o. b.i.d. Monitor intake and output. Weight daily Heart healthy diet (3) Abnormal chest CT: Code(s): R93.89 - Abnormal findings on diagnostic imaging of other specified body structures Status: Acute Assessment and Plan: Chest CT performed on admission demonstrates left lung upper lobe mass and right middle lobe nodules concerning for infection vs malignancy Will proceed with treatment for pneumonia. Received IV Levaquin in the ED which will be continued. Supportive care to include bronchodilators, expectorants, antipyretics, and incentive spirometry. She is maintaining adequate O2 sats on room air. COVID considered but seems unlikely based on inflammatory markers and CXR findings. She did complete Pfizer vaccine in September 2020. Malignancy cannot be ruled out. She does have a 65 pack-year smoking history which places her at higher risk. Laboratory workup with elevated LDH and low CRP more suggestive of malignancy than infection. Will plan for repeat chest CT in 2 months as an outpatient. If CT findings are still present at that time, this would be suggestive of high likelihood for malignancy. Discussed with family and PCP plan of care. Daughter/POA, Shilpa, reports that if it were to be cancer, they would not pursue treatment. Will arrange outpatient chest CT in 2 months from discharge (4) Elevated digoxin level: Code(s): R78.89 - Finding of other specified substances, not normally found in blood Status: Acute Assessment and Plan: Digoxin has been discontinued per Cardiology recommendations (5) Hyperkalemia: Code(s): E87.5 - Hyperkalemia Status: Acute Assessment and Plan: Resolved. Potassium is 4.3 Continue to monitor BMP (6) Elevated BUN: Code(s): R79.9 - Abnormal finding of blood chemistry, unspecified Status: Acute Assessment and Plan: BUN elevated at 45. Occult blood test has been ordered to evaluate for upper GI bleeding though H&H is consistent with baseline. Await results May have component of prerenal azotemia related to diuresis, however creatinine is within normal limits Continue cautious diuresis Continue to monitor BMP closely Additional Plan Discussed with daughter 04/26/2021 again on 04/28/2021 PT OT to see her and assess for further needs Back to [facility] tomorrow Subjective Date/time seen: 04/28/21 17:20 Interval history: Zelda Chin is an 85 year old female with a history of CHF, mitral valve stenosis, GERD, dementia, who is seen in follow up for chest pain. Interval history: No overnight events. Denies any problem. No fever chills shortness of breath chest pain blood pressure has been stable Review of Systems Review of Systems: All systems reviewed & are unremarkable except as noted in HPI and below Exam Narrative: General: Thin frail
[2021-04-28] MEDS: traZODone HCL 50 MG TABLET 200 MG PO (20:37)
[2021-04-29] VITALS (8 sets, daily range): BP systolic 98; BP diastolic 67; PULSE 84–98; RESP 14–18; TEMP 36.6; O2SAT 93–94
[2021-04-29] MEDS: ALBUTEROL SULFATE (*SP) AEROSOL 1 PUFF 2 PUFF INHALATION ×2 (02:16→07:57)
[2021-04-29] MEDS: DOCUSATE SODIUM 100 MG CAPSULE PO (08:18)
[2021-04-29] MEDS: MIDODRINE HCL 2.5 MG TABLET PO ×2 (08:18→12:25)
[2021-04-29] MEDS: busPIRone HCL 2.5 MG TABLET PO ×2 (08:19→12:24)
[2021-04-29] MEDS: BUMETANIDE 1 MG TABLET PO (08:19)
[2021-04-29] MEDS: guaiFENesin 12 HR 600 MG TABCR PO (08:19)
[2021-04-29] MEDS: busPIRone HCL 5 MG TABLET PO ×2 (08:19→12:24)
[2021-04-29] MEDS: MAGNESIUM OXIDE 400 MG TABLET PO (08:20)
[2021-04-29] MEDS: PANTOPRAZOLE 40 MG TABLET PO (08:21)
[2021-04-29] MEDS: ASPIRIN 81 MG ENTERIC TABLET PO (08:21)
[2021-04-29] MEDS: ATORVASTATIN 20 MG TABLET PO (08:21)
--- NOTE | 2021-04-29 08:43 | PM.PNCARD ---
Progress Note: A&P Assessment and Plan (1) Non-ST elevation myocardial infarction (NSTEMI): Code(s): I21.4 - Non-ST elevation (NSTEMI) myocardial infarction Status: Acute Assessment and Plan: Conservative medical management for non ST-elevation myocardial infarction given age, comorbidities and dementia. No plans for invasive angiography. Continue Atorvastatin 20 mg daily, aspirin 81 mg p.o. daily. Patient started on midodrine due to relative hypotension. Isosorbide has been stopped at this point. She is not having any ongoing anginal symptoms. DVT prophylaxis. PT OT. Ambulate with extreme caution to avoid risk for falls and injuries. Patient high fall and bleeding risk. (2) Severe pulmonary hypertension: Code(s): I27.20 - Pulmonary hypertension, unspecified Status: Acute Assessment and Plan: Likely secondary to a combination of left heart disease and valvular heart disease. Conservative management. (3) Combined systolic and diastolic congestive heart failure: Code(s): I50.40 - Unspecified combined systolic (congestive) and diastolic (congestive) heart failure Status: Acute Assessment and Plan: Mild acute on chronic, most likely ischemic etiology. Continue oral Bumex. Patient appears relatively euvolemic at this time. Renal function and electrolytes remain stable. Continue Bumex 1 mg b.i.d. - this is her home dose. (4) Cardiomyopathy: Code(s): I42.9 - Cardiomyopathy, unspecified Status: Acute Assessment and Plan: Moderate LV dysfunction EF 35-40%. She is intermittently hypotensive not able to tolerate beta-kaitlynn, Bahman/ARB. Continue Bumex 1mg p.o. b.i.d. Remains relatively hypotensive but asymptomatic. Continue midodrine. Do not not restart digoxin. Subjective Date/time seen: 04/29/21 08:43 Interval history: Zelda Chin is an 85 year old female with a history of CHF, mitral valve stenosis, GERD, dementia, who is seen in follow up for chest pain. Date of service 04/28/2021: No acute events overnight. Feeling well today and free from any complaints. Remains relatively hypotensive. Date of service 04/29/2021: She is complaining of a stomach ache today. This occurred after she ate breakfast. She does not have any cardiovascular complaints this morning including chest pain or shortness of breath. From a cardiac perspective she is appropriate for discharge back to her memory care center today. Review of Systems Review of Systems: All systems reviewed & are unremarkable except as noted in HPI and below Constitutional: Constitutional: Denies excessive sweating, Denies headache(s) and Reports weakness Eyes: Eyes: Denies blurry vision ENT: Reports Normal hearing present, Denies headache(s) and Denies neck pain Cardiovascular: Cardiovascular: Reports chest pain and Reports dyspnea on exertion Respiratory: Respiratory: Reports dyspnea on exertion Gastrointestinal: Gastrointestinal: Denies abdominal pain Genitourinary: Genitourinary: Denies flank pain Musculoskeletal: Musculoskeletal: Denies neck pain Integumentary/Breasts: Skin/Breast: Denies dry skin Neurologic: Reports Normal hearing present, Denies confusion, Denies headache(s) and Reports weakness Psychiatric: Psychiatric: Denies anxiety and Denies confusion Endocrine: Endocrine: Denies excessive sweating Hematologic/Lymphatic: Hematologic/Lymphatic: Denies easy bleeding Allergic/Immunologic: Allergic/Immunologic: Denies GI upset with certain foods Exam Narrative: Elderly lady sitting up in the chair eating breakfast. Alert and oriented. Pleasant and cooperative. Const: General: comfortable and no acute distress; No confusion Orientation/consciousness: patient oriented x3 and No confusion HENMT: Head: normal to inspection General nose exam: Normal nares present Face and sinus: normal facial exam Mouth: Yes moist mucous membranes Eyes: General: appearance nor
[2021-04-29] MEDS: MECLIZINE HCL 12.5 MG TABLET PO (08:57)
--- NOTE | 2021-04-29 11:07 | PM.DS ---
DS: Admitting Diagnosis Discharge Date 04/29/2021 Admitting Diagnosis chest pain DS: Discharge Diagnosis Discharge Diagnosis (1) Abnormal chest CT: Code(s): R93.89 - Abnormal findings on diagnostic imaging of other specified body structures Status: Acute Assessment and Plan: Chest CT performed on admission demonstrates left lung upper lobe mass and right middle lobe nodules concerning for infection vs malignancy started on treatment for pneumonia. Received IV Levaquin in the ED which will be continued. Supportive care to include bronchodilators, expectorants, antipyretics, and incentive spirometry. She is maintaining adequate O2 sats on room air. COVID considered but seems unlikely based on inflammatory markers and CXR findings. She did complete Pfizer vaccine in September 2020. Malignancy cannot be ruled out. She does have a 65 pack-year smoking history which places her at higher risk. Laboratory workup with elevated LDH and low CRP more suggestive of malignancy than infection. Will plan for repeat chest CT in 2 months as an outpatient. If CT findings are still present at that time, this would be suggestive of high likelihood for malignancy. Discussed with family and PCP plan of care. Daughter/POA, Shilpa, reports that if it were to be cancer, they would not pursue treatment. Will arrange outpatient chest CT in 2 months from discharge which is ordered results to Dr. hanson/PCP (2) Lung mass: Code(s): R91.8 - Other nonspecific abnormal finding of lung field Status: Acute Assessment and Plan: see above (3) Non-ST elevation myocardial infarction (NSTEMI): Code(s): I21.4 - Non-ST elevation (NSTEMI) myocardial infarction Status: Acute Assessment and Plan: She presented after complaints of chest pain at her memory care facility but was not able to recall having this chest pain or elaborate on further details. Troponin elevated up to 3.3. Episode felt to be consistent with NSTEMI Appreciate cardiology consultation Planning for conservative management given dementia She has been started on aspirin 81 mg daily, isosorbide mononitrate 30 mg daily and atorvastatin increased to 20 mg Also added on Plavix which is planned to continue for few months her H&H is was stable without history nasal bleeding in the past. Her Imdur needed to be discontinued due to relative hypotension. Small dose of beta-kaitlynn added if tolerated (4) Combined systolic and diastolic congestive heart failure: Code(s): I50.40 - Unspecified combined systolic (congestive) and diastolic (congestive) heart failure Status: Acute Assessment and Plan: Chronic CHF with mild acute exacerbation, likely related to ischemic event. Mild pulmonary edema and cardiomegaly evident on CXR. Continue Bumex 1 mg p.o. b.i.d. Monitor intake and output. Weight daily Heart healthy diet Beta-kaitlynn as tolerated (5) Elevated digoxin level: Code(s): R78.89 - Finding of other specified substances, not normally found in blood Status: Acute Assessment and Plan: Digoxin has been discontinued per Cardiology recommendations (6) Hyperkalemia: Code(s): E87.5 - Hyperkalemia Status: Acute Assessment and Plan: Resolved. Potassium is 4.3 Continue to monitor BMP (7) Elevated BUN: Code(s): R79.9 - Abnormal finding of blood chemistry, unspecified Status: Acute Assessment and Plan: BUN elevated at 45. Occult blood test has been ordered to evaluate for upper GI bleeding though H&H is consistent with baseline. Await results May have component of prerenal azotemia related to diuresis, however creatinine is within normal limits Continue cautious diuresis Continue to monitor BMP closely (8) Nonsustained ventricular tachycardia: Code(s): I47.2 - Ventricular tachycardia Status: Acute Assessment and Plan: had
[2021-04-29 11:38] LABS: EDCOVIDSCREEN Negative (Negative)
[2021-04-29] MEDS: METOPROLOL TARTRATE 6.25 MG TABLET PO (12:22)
[2021-04-29] MEDS: CLOPIDOGREL BISULFATE 75 MG TABLET PO (12:22)
== END 2021-04-29 13:12 | DRG 280 ==
LOC: ANHED 12:04 → ANHIMU 15:10 → ANH3MEDSUR 04-28 09:39 → ANHIMU 05-01 10:49
PROVIDERS: Physician Assistant; Admitting Provider Internal Medicine; Emergency Provider Emergency Medicine; PCP Family Medicine; Visit Provider Internal Medicine
DX: I21.4 Non-ST elevation (NSTEMI) myocardial infarction (principal); I50.43 Acute on chronic combined systolic (congestive) and diastolic (congestive) heart failure; I47.2 Ventricular tachycardia; Z20.822 Contact with and (suspected) exposure to COVID-19; R93.89 Abnormal findings on diagnostic imaging of other specified body structures; R91.8 Other nonspecific abnormal finding of lung field; F17.210 Nicotine dependence, cigarettes, uncomplicated; I27.20 Pulmonary hypertension, unspecified; I49.1 Atrial premature depolarization; I05.0 Rheumatic mitral stenosis; E87.5 Hyperkalemia; R77.8 Other specified abnormalities of plasma proteins; R78.89 Finding of other specified substances, not normally found in blood; R79.9 Abnormal finding of blood chemistry, unspecified; K21.9 Gastro-esophageal reflux disease without esophagitis; F03.90 Unspecified dementia, unspecified severity, without behavioral disturbance, psychotic disturbance, mood disturbance, and anxiety; F41.1 Generalized anxiety disorder; Z79.899 Other long term (current) drug therapy
CPT/HCPCS: 36415; 51701; 71045; 71250; 80048; 80053; 80076; 80162; 81003; 83615; 83735; 83880; 84484; 85025; 85027; 85055; 85610; 85730; 86140; 87426; 93005; 94640; 96372; 96374; 96375; 96376; 97110; 97162; 97165; 97530; 99285; A9270; C9803; G0378; J1650; J1940; J1956; J2543; J7040

== ENCOUNTER 2021-05-08 09:22 | Outpatient (CLI) | payer MEDICARE, SELFPAY ==
--- NOTE | ~2021-05-08 | CT_ITS ---
EXAMINATION: CT diagnostic chest wo con DATE: 05/08/2021 09:54 INDICATION: Abnormal findings on diagnostic imaging TECHNIQUE: Computed tomography (CT) of the chest was performed without intravenous contrast. The dose -length product (DLP) was 108.97 mGy-cm. Automated exposure control and iterative reconstruction tech [employer] were employed. COMPARISON: 04/23/2021 FINDINGS: There is a 4.1 x 1.3 cm mass of the left upper lobe which previously measured 4.2 x 1.7 cm. A cluster of nodules in the right middle lobe is not significant change measuring 1.6 cm. There are small pleural effusions, right greater than left. No pneumothorax is identified. Cardiomegaly is note d. There are no pathologically enlarged thoracic lymph nodes. A chronic burst fracture of T12 is note d. There is severe thoracic spondylosis. 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 IMPRESSION: 1. Left upper lobe mass with minimal decrease in size and right middle lobe nodules. Findings may ref lect infection or malignancy. Recommend follow-up CT in another 4-6 weeks after appropriate therapy t o evaluate for interval change. 2. Cardiomegaly. 3. Small pleural effusions, right greater than left. Reviewed, dictated and finalized at location A. IMPRESSION: 1. Left upper lobe mass with minimal decrease in size and right middle lobe nod ules. Findings may reflect infection or malignancy. Recommend follow-up CT in a nother 4-6 weeks after appropriate therapy to evaluate for interval change. 2. Cardiomegaly. 3. Small pleural effusions, right greater than left.
[2021-05-08 10:40] LABS: Anion Gap 16 mmol/L (8-16); Blood Urea Nitrogen 52 mg/dL (7-17); Calcium 9.1 mg/dL (8.4-10.2); Carbon Dioxide 21 mmol/L (22-30); Chloride 98 mmol/L (98-107); Estimated Glomerular Filt Rate 39; Glucose 183 mg/dL (65-110); Potassium 4.5 mmol/L (3.4-5.0); Sodium 135 mmol/L (137-145)
[2021-05-08 10:51] LABS: Basophils Percent Auto 0.2 % (0.2-1.2); Eosinophils Percent Auto 0.3 % (0-4.4); Hematocrit 37.6 % (37.0-47.0); Hemoglobin 11.5 g/dL (12.0-15.0); Immature Granulocyte Absolute 0.16 K/mm3 (0.00-0.031); Immature Granulocyte Percent A 1.5 % (0-0.5); Lymphocytes Absolute Auto 0.88 K/mm3 (0.9-3.2); Lymphocytes Percent Auto 8.5 % (18.3-44.2); Mean Corpuscular HGB Conc 30.6 g/dl (32-36); Mean Corpuscular Hemoglobin 28.7 pg (26-34); Mean Corpuscular Volume 93.8 fl (80-100); Mean Platelet Volume 10.5 fl (7.4-10.4); Monocytes Absolute Auto 0.9 K/mm3 (0.1-0.6); Monocytes Percent Auto 8.6 % (2.6-8.5); Neutrophils Absolute Auto 8.4 K/mm3 (1.3-6.7); Neutrophils Percent Auto 80.9 % (45.5-73.1); Nucleated Red Blood Cells Perc 0.3 % (0.0-0.2); Platelet Count Result 305 k/mm3 (150-375); Red Blood Count 4.01 M/mm3 (4.2-5.4); Red Cell Distribution Width 15.9 % (11.5-14.5); White Blood Count 10.4 K/mm3 (4.5-10.0)
== END 2021-05-08 09:23 | disposition home or self-care (01) ==
PROVIDERS: PCP Internal Medicine; Visit Provider Internal Medicine
DX: D64.9 Anemia, unspecified (principal); I50.9 Heart failure, unspecified; R93.89 Abnormal findings on diagnostic imaging of other specified body structures; R91.8 Other nonspecific abnormal finding of lung field; I51.7 Cardiomegaly; J90 Pleural effusion, not elsewhere classified
CPT/HCPCS: 36415; 71250; 80048; 85025